=== PATIENT | male | born 1940 | race Caucasian/White ===

== ENCOUNTER 2018-06-24 10:13 | Emergency (ER) | payer MEDICARE, OTHER, SELFPAY ==
[2018-06-24 10:14] VITALS: BP 138/94; PULSE 120; RESP 18; TEMP 36.6; O2SAT 98; BMI 25.8
--- NOTE | 2018-06-24 10:41 | NURSING ---
DR FLOYD FOR DR NICHOLAS
--- NOTE | 2018-06-24 11:02 | ED.DCSUM_ITS ---
- ER Visit Summary Date of Service: 06/24/18 Chief Complaint: [] Lumbar back pain acute exacerbation for 8 years History of Present Illness: The patient is a 77 M [] history of lumbar back pain for over 8 years he seen multiple physicians has had multiple imaging outpatient management history under the care of Dr. dmitry Mcdaniel pain management, see June 02 had his back injected had partial relief he was seen yesterday for persistence of the pain Medrol Dosepak was added to his regimen he spoke with office today and was to explain his back pain was not improved and he was instructed to come to the hospital per the office, this is that identical presentation in nature of pain to her prior there is been nothing new, there is been no fever no cough no numbness weakness or paresthesias no difficulty ambulation bowel bladder habits been normal he just takes his hands and draws it diffusely across his back if he sits in the bed still he is improved if he tries to bend over or move he has more pain assures me this is the chronic pattern and nature of his symptoms Physical Examination: [] 130/82 80 General, no distress resting comfortably HEENT is generally unremarkable The neck is supple no adenopathy Cardiovascular, regular rate and rhythm Lungs, clear bilateral Abdomen, soft nontender The back he has a vague nonspecific lumbar back pain there is no focality to it, there is no specific pain over any bony prominence Extremities, no clubbing cyanosis or edema Neurologic, awake alert answering questions appropriately moving all 4 extremities his gait is stable and steady he is able to heel raise toe raise knee bend he has no paresthesias no bowel or bladder complaints no signs of cauda equina Test Results: [] Emergency Department Course and Treatment: [] Patient's been medicated he is resting comfortably is in no distress his physical exam is unchanged I spoke with his physician Dr. Wallis he was for pain management, he agrees he can follow-up with the office continue his outpatient management plan any other diagnostic studies can be done as an outpatient and he is to return for change in symptoms patient and agree with this plan further apparently he has a prescription for Rodney that he can use for rescue pain and his doctor said he can come by the office today to get a prescription for that if he is out of it Treatment Plan: [] Disposition: [] Home stable Impression: [] Acute recurrent lumbar back pain This note was generated with [employer] dictation software. It may contain incorrect words, spelling, and punctuation that were not noted in review of the chart prior to signing ED Disposition - Plan for ED Patient: Chief Complaint: Back Referrals: Karla Walsh MD [Primary Care Provider] -
--- NOTE | 2018-06-24 11:05 | NURSING ---
CALLED OFFICE FOR DR NOLAN. HE'S WITH A PATIENT .
[2018-06-24] MEDS: morphine 8 MG/ML Syringe SC (11:17)
--- NOTE | 2018-06-24 11:29 | ED.DEP ---
ED Disposition - Plan for ED Patient: Chief Complaint: Back Referrals: Karla Walsh MD [Primary Care Provider] - Additional Instructions: Follow-up with all of your outpatient providers including her pain management physician return for change in symptoms
--- NOTE | 2018-06-24 11:30 | ED.DEP ---
ED Disposition - Plan for ED Patient: Chief Complaint: Back Instructions: ED Sciatica Referrals: Karla Walsh MD [Primary Care Provider] - Additional Instructions: Follow-up with all of your outpatient providers including her pain management physician return for change in symptoms
[2018-06-24] MEDS: Orphenadrine 100 MG Tablet PO (11:36)
[2018-06-24 11:38] VITALS: BP 127/74; PULSE 76; RESP 18; O2SAT 99
--- OUTSIDE RECORDS SUMMARY | 2018-08-10 14:05 | XMS RPT_ITS ---
:1940 Author Organization OHIP Care Team Providers Name Role Phone KARLA NAJERA Attending Unavailable GANTA, KARLA Referring Unavailable GANTA, KARLA Referring Unavailable GANTA, KARLA Attending Unavailable GANTA, KARLA Referring Unavailable GANTA, KARLA Referring Unavailable Ganta, Karal Primary Care Unavailable Tong Jasmine Attending Unavailable Basali, Stephania Attending Unavailable Basali, Anetaman Referring Unavailable Ganta, Karla Primary Care Unavailable PROBLEMS PROBLEMS DATE TYPE CONDITION / CODE ATTENDING STATUS SOURCE 05/23/2018 Active Encounter for NA Active [facility] screening for [place] malignant neoplasm Repository of prostate / Z12.5(ICD-10) 05/23/2018 Active Prediabetes / NA Active [facility] R73.03(ICD-10) [place] Repository 07/04/2016 Active Hyperlipidemia, NA Active [facility] unspecified / [place] E78.5(ICD-10) Repository 02/21/2018 Active Hyperglycemia, NA Active [facility] unspecified / [place] R73.9(ICD-10) Repository 02/21/2018 Active Essential (primary) NA Active [facility] hypertension / [place] I10(ICD-10) Repository 02/21/2018 Active Other specified NA Active [facility] hypothyroidism / [place] E03.8(ICD-10) Repository PROCEDURES PROCEDURES No Procedure Records FoundRESULTS RESULTS SPINE CERVICAL Observed: 07/03/2018 Status: F Source: [place] (ROUTINE) 3:34 PM [facility] Imaging Services [address] [place] [address] Spine Cervical (Routine) MR#: [id number] Acct: [id number] Name: DERRICK OMALLEY Rep #: [id number] : 1940 M 77 From: Paco Capellan PCP: Karla Najera MD Status: REG CLI Study: Spine Cervical (Routine) Date of Exam: 07/03/18 Exam# [id number] Ordering Dr: Stephania Quintanilla MD STUDY: MRI CERVICAL SPINE WITHOUT CONTRAST REASON FOR EXAM: Male, 77 years old. Neck pain TECHNIQUE: Standardized fat and water weighted pulse sequences were obtained in the sagittal and axial planes. COMPARISON: None FINDINGS: Normal foramen magnum and brainstem-cervical cord junction. Normal craniovertebral junction. Normal anterior atlantoaxial articulation. Normal odontoid process. Normal cervical lordosis. Normal vertebral bodies and posterior osseous elements. C2-3: Normal endplates. Normal disc height, signal and morphology. Normal central canal and intervertebral neural foramina. C3-4: There is mild loss of disc height. There is mild osteophytic ridging. There is mild bilateral facet hypertrophy. There is NO spinal or foraminal stenosis. C4-5: There is mild loss of disc height. There is mild RIGHT posterior paracentral disc bulging causing mild spinal stenosis. There is mild facet arthropathy. There is NO foraminal stenosis. C5-6: There is significant loss of disc height. There is diffuse osteophytic ridging causing mild spinal stenosis and moderate bilateral foraminal stenosis. The facet joints are unremarkable. C6-7: There is significant loss of disc height. There is diffuse osteophytic ridging causing mild spinal stenosis and moderate bilateral foraminal stenosis. The facet joints are unremarkable. C7-T1: Normal endplates. Normal disc height, signal and morphology. Normal central canal and intervertebral neural foramina. Normal cervical cord. There is NO cervical cord gliosis, edema or myelomalacia. Normal visualized soft tissue structures. MRI/Spine Cervical (Routine) IMPRESSION: There are chronic degenerative changes as described. There is NO fracture, malalignment, disc herniation or cord compression. Electronically Signed: Paco Capellan MD at 4:35 EST , Service support , CC: Stephania Quintanilla MD; Karla Najera MD Radio Division Lieutenant: Signed SPINE LUMBAR Observed: 07/03/2018 Status: F Source: [place] (ROUTINE) 3:34 PM [facility] Imaging Services [address] [place] [address] Spine Lumbar (Routine) MR#: [id number] Acct: [id number] Name: DERRICK OMALLEY Rep #: [id number] : 1940 77 From: Ricardo Sprague MD PCP: Karla Najera MD Status: REG CLI Study: Spine Lumbar (Routine) Date of Exam: 07/03/18 Exam# [id number] Ordering Dr: Stephania Quintanilla MD STUDY: MRI LUMBAR SPINE WITHOUT CONTRAST REASON FOR EXAM: Male, 77 years old. Lower back pain TECHNIQUE: Standardized fat and water weighted pulse sequences were obtained in the sagittal and axial planes. COMPARISON: None FINDINGS: T12-L1: Normal endplates. Normal disc height, hydration and morphology. Normal bilateral facet joints. Normal central canal and bilateral lateral recesses. Normal bilateral intervertebral neural foramina. Normal lumbar lordosis. There is a levoscoliosis of the lumbar spine. Normal conus medullaris that terminates at the L1 level. L1-2: Endplate spondylosis. Decreased disc height and small circumferential disc bulge. Degenerative changes of the bilateral facet joints. Mild narrowing of the central canal and bilateral intervertebral neural foramina. L2-3: Endplate spondylosis. Decreased disc height and small circumferential disc bulge. Degenerative changes of the bilateral facet joints. Mild narrowing of the central canal. Mild left and moderate right intervertebral neural foraminal narrowing. L3-4: Endplate spondylosis. Decreased disc height and small circumferential disc bulge. Degenerative changes of the bilateral facet joints. Mild narrowing of the central canal. Mild left and moderate right intervertebral neural foraminal narrowing. L4-5: Endplate spondylosis. Decreased disc height and small circumferential disc bulge. Degenerative changes of the bilateral facet joints. Mild narrowing of the central canal. Mild left and moderate right intervertebral neural foraminal narrowing. L5-S1: Normal endplates. Normal disc height, hydration and morphology. Mild degenerative changes in the facet joints. Normal central canal and bilateral lateral recesses. Normal bilateral intervertebral neural foramina. Normal visualized sacral ala. Normal visualized paraspinous soft tissue structures. MRI/Spine Lumbar (Routine) IMPRESSION: Multilevel degenerative changes, as described above. Electronically Signed: Ricardo Sprague MD at 7:57 EST Tel , Service support , CC: Stephania Quintanilla MD; Karla Najera MD Radio Division Lieutenant: Signed EMERGENCY DEPARTMENT Observed: 06/24/2018 Status: F Source: [place] SUMMARY 5:10 PM [facility] Medical Records Department [address] [place] [address] Emergency Department Summary 06/24/18 1100 MR#: [id number] Acct: [id number] Name: DERRICK OMALLEY Rep #: [id number] : 1940 77 From: Tong Jasmine MD PCP: Karla Najera MD Status: DEP ER - ER Visit Summary Date of Service: 06/24/18 Chief Complaint: [] Lumbar back pain acute exacerbation for 8 years History of Present Illness: The patient is a 77 M [] history of lumbar back pain for over 8 years he seen multiple physicians has had multiple imaging outpatient management history under the care of Dr. dmitry Mcdaniel pain management, see June 02 had his back injected had partial relief he was seen yesterday for persistence of the pain Medrol Dosepak was added to his regimen he spoke with office today and was to explain his back pain was not improved and he was instructed to come to the hospital per the office, this is that identical presentation in nature of pain to her prior there is been nothing new, there is been no fever no cough no numbness weakness or paresthesias no difficulty ambulation bowel bladder habits been normal he just takes his hands and draws it diffusely across his back if he sits in the bed still he is improved if he tries to bend over or move he has more pain assures me this is the chronic pattern and nature of his symptoms Physical Examination: [] 130/82 80 General, no distress resting comfortably HEENT is generally unremarkable The neck is supple no adenopathy Cardiovascular, regular rate and rhythm Lungs, clear bilateral Abdomen, soft nontender The back he has a vague nonspecific lumbar back pain there is no focality to it, there is no specific pain over any bony prominence Extremities, no clubbing cyanosis or edema Neurologic, awake alert answering questions appropriately moving all 4 extremities his gait is stable and steady he is able to heel raise toe raise knee bend he has no paresthesias no bowel or bladder complaints no signs of cauda equina Test Results: [] Emergency Department Course and Treatment: [] Patient's been medicated he is resting comfortably is in no distress his physical exam is unchanged I spoke with his physician Dr. Wallis he was for pain management, he agrees he can follow- up with the office continue his outpatient management plan any other diagnostic studies can be done as an outpatient and he is to return for change in symptoms patient and agree with this plan further apparently he has a prescription for [place] that he can use for rescue pain and his doctor said he can come by the office today to get a prescription for that if he is out of it Treatment Plan: [] Disposition: [] Home stable Impression: [] Acute recurrent lumbar back pain This note was generated with [employer] dictation software. It may contain incorrect words, spelling, and punctuation that were not noted in review of the chart prior to signing ED Disposition - Plan for ED Patient: Chief Complaint: Back Referrals: Karla Najera MD [Primary Care Provider] - What to do if you have Problems For any increased pain, shortness of breath, bleeding, nausea or vomiting, chest pain, or any unexpected problems, contact your Primary Care Provider. Call [facility] ([phone]) or report to the closest Emergency Room. Call 911 if necessary. 06/24/18 1710 <Electronically signed by Togn Jasmine MD> Date Tong Jasmine MD Cosigner Signature (If Indicated): Date CC: Karla Najera MD DISCHARGE INSTRUCTION Observed: 06/24/2018 Status: F Source: [place] 11:31 AM [facility] Medical Records Department [address] [place] [address] Discharge Instruction 06/24/18 1130 MR#: [id number] Acct: [id number] Name: DERRICK OMALLEY Rep #: [id number] : 1940 77 From: Tong Jasmine MD PCP: Karla Najera MD Status: REG ER ED Disposition - Plan for ED Patient: Chief Complaint: Back Instructions: ED Sciatica Referrals: Karla Najera MD [Primary Care Provider] - Additional Instructions: Follow-up with all of your outpatient providers including her pain management physician return for change in symptoms What to do if you have Problems For any increased pain, shortness of breath, bleeding, nausea or vomiting, chest pain, or any unexpected problems, contact your Primary Care Provider. Call [facility] ([phone]) or report to the closest Emergency Room. Call 911 if necessary. 06/24/18 1131 <Electronically signed by Tong Jasmine MD> Date Tong Jasmine MD Cosigner Signature (If Indicated): Date CC: Karla Najera MD DISCHARGE INSTRUCTION Observed: 06/24/2018 Status: F Source: [place] 11:30 AM [facility] Medical Records Department [address] [place] [address] Discharge Instruction 06/24/18 1129 MR#: [id number] Acct: [id number] Name: DERRICK OMALLEY Rep #: [id number] : 1940 77 From: Tong Jasmine MD PCP: Karla Najera MD Status: REG ER ED Disposition - Plan for ED Patient: Chief Complaint: Back Referrals: Karla Najera MD [Primary Care Provider] - Additional Instructions: Follow-up with all of your outpatient providers including her pain management physician return for change in symptoms What to do if you have Problems For any increased pain, shortness of breath, bleeding, nausea or vomiting, chest pain, or any unexpected problems, contact your Primary Care Provider. Call [facility] ([phone]) or report to the closest Emergency Room. Call 911 if necessary. 06/24/18 1130 <Electronically signed by Tong Jasmine MD> Date Tong Jasmine MD Cosigner Signature (If Indicated): Date CC: Karla Najera MD PROGRESS Observed: 06/17/2018 Status: COMPLETED Source: [place] 6:10 PM [facility] REPOSITORY O ID: [id number] Author: Karla Najera Service: (none) Author Type: Physician Type: Progress Notes Filed: 06/17/2018 7:39 PM Note Text: Reason for Visit Patient presents with: Recheck: 3 month follow up, review labs Derrick Omalley is a 77 year old male who presents here today for Above Complaints.. Health Maintenance DTAP,TDAP,TD(1 - Tdap) INFLUENZA(1) HPI He had cut down his forsties and dairy [place]. He is not able to exercise much due to his bad back. He likes his frosties and dairy [place] sundaes. His prostate is a little elevated. Ok to follow up in 3 months , father of prostate cancer ? Sugars are mildly elevated will need to check his hba1c. ? He is concerned about his hernia mesh , he is concerned if he has a recall. Reflux- controlled on the nexium. ? He has been getting steroid shots in his back and he would like to know if his kidneys are normal. His steroid shots are every 3 months. He notes that his pain is worse after the shots than before the shots he gets one on each hip, tail bone, SI joint, and back. Discussed with him that his GFR is more than 60 No problem-specific Assessment AND Plan notes found for this encounter. PAST MEDICAL HISTORY Diagnosis Date - Arthritis see's Dr. 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 Pertinent Lab/Diagnostic Studies are reviewed and discussed today Current Outpatient Prescriptions: - timolol maleate (TIMOPTIC) 0.5 % drpd - Brimonidine-Timolol (COMBIGAN) 0.2-0.5 % drop - HYDROcodone-acetaminophen (NORCO) 5-325 mg per tablet - latanoprost (XALATAN) 0.005 % ophthalmic solution - esomeprazole (NEXIUM) 40 mg capsule - meclizine 25 mg tab - aluminum-magnesium hydroxide-simethicone (ANTACID ANTI- GAS) 200-200-20 mg/5 mL suspension - MULTIVITAMIN ORAL TAB Review of Systems CONSTITUTIONAL: No fevers, chills night sweats, unintended weight loss CARDIOVASCULAR: No chest pain, dyspnea, palpitations, orthopnea, PND, ankle edema. PULM: No dyspnea, unexplained cough. GI: No dysphagia/odynophagia, problematic reflux, constipation, diarrhea, changes in stool habits, hematochezia, melena. : No new urinary complaints, including dysuria, gross hematuria or pyuria. NEURO: No new balance problems, peripheral weakness/paresthesias or numbness of concern. Physical Exam BP 128/64 Pulse 90 Resp 16 Wt 78.5 kg (173 lb) SpO2 97% BMI 27.10 kg/m? General appearance: Well appearing, alert, in no acute distress, well nourished. Skin: Skin color, texture, turgor normal, no suspicious rashes or lesions Head: Normocephalic, no masses, lesions, tenderness or abnormalities Eyes: Anicteric sclera. Pupils are equally round and reactive to light. Extraocular movements are intact. Lungs: Lungs clear to auscultation. No wheezing, rhonchi, rales Heart: RRR without murmur, gallop, or rubs. Extremities: No deformities, edema, skin discoloration, clubbing or cyanosis. Good capillary refill. ASSESSMENT/PLAN: 1. Hyperlipidemia with target LDL less than 130 - ICD9: 272.4, ICD10: E78.5 (primary diagnosis) - good control - Continue current medication. - LIPID PANEL BASIC 2. Gastroesophageal reflux disease without esophagitis - ICD9: 530.81, ICD10: K21.9 - Discussed lifestyle modifications including losing weight, limiting caffeine, no meals three hours before sleep and head of bed elevation 3. Elevated prostate specific antigen (PSA) - ICD9: 790.93, ICD10: R97.20 We will recheck his prostate in 3 months. 4. Prostate cancer screening - ICD9: V76.44, ICD10: Z12.5 - Recommended regular aerobic exercise. - Follow up for annual exam in one year. - PSA/PROSTSPECAG MD KATJA DUMONTOV Observed: 06/17/2018 Status: COMPLETED Source: [place] 5:40 PM [facility] REPOSITORY Office Visit (INTMWS) DERRICK OMALLEY ([id number]) 1940 M Date Time Provider Department 06/17/18 5:40 PM KARLA NAJERA INTMWS During your visit today, we recorded the following information about you: Pulse Respiration Blood pressure Weight 90/minute 16/minute 128/64 78.5 kg KARLA NAJERA MD 06/17/2018 7:39 PM Signed Reason for Visit Patient presents with: Recheck: 3 month follow up, review labs Derrick Omalley is a 77 year old male who presents here today for Above Complaints.. Health Maintenance DTAP,TDAP,TD(1 - Tdap) INFLUENZA(1) HPI He had cut down his forsties and dairy [place]. He is not able to exercise much due to his bad back. He likes his frosties and dairy [place] sundaes. His prostate is a little elevated. Ok to follow up in 3 months , father of prostate cancer ? Sugars are mildly elevated will need to check his hba1c. ? He is concerned about his hernia mesh , he is concerned if he has a recall. Reflux- controlled on the nexium. ? He has been getting steroid shots in his back and he would like to know if his kidneys are normal. His steroid shots are every 3 months. He notes that his pain is worse after the shots than before the shots he gets one on each hip, tail bone, SI joint, and back. Discussed with him that his GFR is more than 60 No problem-specific Assessment AND Plan notes found for this encounter. PAST MEDICAL HISTORY Diagnosis Date - Arthritis see's Dr. 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 Pertinent Lab/Diagnostic Studies are reviewed and discussed today Current Outpatient Prescriptions: - timolol maleate (TIMOPTIC) 0.5 % drpd - Brimonidine-Timolol (COMBIGAN) 0.2-0.5 % drop - HYDROcodone-acetaminophen (NORCO) 5-325 mg per tablet - latanoprost (XALATAN) 0.005 % ophthalmic solution - esomeprazole (NEXIUM) 40 mg capsule - meclizine 25 mg tab - aluminum-magnesium hydroxide-simethicone (ANTACID ANTI- GAS) 200-200-20 mg/5 mL suspension - MULTIVITAMIN ORAL TAB Review of Systems CONSTITUTIONAL: No fevers, chills night sweats, unintended weight loss CARDIOVASCULAR: No chest pain, dyspnea, palpitations, orthopnea, PND, ankle edema. PULM: No dyspnea, unexplained cough. GI: No dysphagia/odynophagia, problematic reflux, constipation, diarrhea, changes in stool habits, hematochezia, melena. : No new urinary complaints, including dysuria, gross hematuria or pyuria. NEURO: No new balance problems, peripheral weakness/paresthesias or numbness of concern. Physical Exam BP 128/64 Pulse 90 Resp 16 Wt 78.5 kg (173 lb) SpO2 97% BMI 27.10 kg/m? General appearance: Well appearing, alert, in no acute distress, well nourished. Skin: Skin color, texture, turgor normal, no suspicious rashes or lesions Head: Normocephalic, no masses, lesions, tenderness or abnormalities Eyes: Anicteric sclera. Pupils are equally round and reactive to light. Extraocular movements are intact. Lungs: Lungs clear to auscultation. No wheezing, rhonchi, rales Heart: RRR without murmur, gallop, or rubs. Extremities: No deformities, edema, skin discoloration, clubbing or cyanosis. Good capillary refill. ASSESSMENT/PLAN: 1. Hyperlipidemia with target LDL less than 130 - ICD9: 272.4, ICD10: E78.5 (primary diagnosis) - good control - Continue current medication. - LIPID PANEL BASIC 2. Gastroesophageal reflux disease without esophagitis - ICD9: 530.81, ICD10: K21.9 - Discussed lifestyle modifications including losing weight, limiting caffeine, no meals three hours before sleep and head of bed elevation 3. Elevated prostate specific antigen (PSA) - ICD9: 790.93, ICD10: R97.20 We will recheck his prostate in 3 months. 4. Prostate cancer screening - ICD9: V76.44, ICD10: Z12.5 - Recommended regular aerobic exercise. - Follow up for annual exam in one year. - PSA/PROSTSPECAG SCRN KARLA NAJERA MD Referring Provider: KARLA NAJERA [[id number]] Allergies As of Date: 06/17/2018 Noted Allergy Reaction COMBIGAN (BRIMONIDINE-TIMOLOL) 03/04/2018 7 - Swelling LEVAQUIN (LEVOFLOXACIN) 04/25/2005 8 - GI Upset MOBIC (MELOXICAM) 01/29/2010 Comments: Painful joints SULFA (SULFONAMIDE ANTIBIOTICS) 04/25/2005 4 - Hives TYLENOL (ACETAMINOPHEN) 05/17/2010 8 - GI Upset Date Reviewed: 06/17/2018 Reviewed by: Leny Rooj Ma - Fully Assessed Reason for Visit: Recheck [92] Cmt: 3 month follow up, review labs Reason For Visit History Recorded Primary Visit Diagnosis:Hyperlipidemia with target LDL less than 130 [E78.5] Other Visit Diagnoses:Gastroesophageal reflux disease without esophagitis [K21.9] Elevated prostate specific antigen (PSA) [R97.20] Prostate cancer screening [Z12.5] Order(s):LIPID PANEL BASIC [SQLIPB] Order #: [id number] FUTURE PSA/PROSTSPECAG SCRN [SQPSAS1] Order #: [id number] FUTURE Prescriptions as of 06/17/2018 Sig: TIMOLOL MALEATE 0.5 % ONCE DA* Use 1 Drop in both eyes twice* BRIMONIDINE-TIMOLOL 0.2 %-0.5* Use in both eyes. HYDROCODONE 5 MG-ACETAMINOPHE* Take 1 tablet by mouth once d* LATANOPROST 0.005 % EYE DROPS Use 1 Drop in both eyes daily* ESOMEPRAZOLE MAGNESIUM 40 MG * Take 1 capsule by mouth once * MECLIZINE 25 MG TABLET Take 1 tablet by mouth every * ALUMINUM-MAG HYDROXIDE-SIMETH* Take by mouth every 6 hours * MULTIVITAMIN TABLET Take one(1) tablet daily. Problem List As Of Date 06/17/2018 Noted Resolved DIABETES MELLITUS TYPE II-UNCOMPL [E11.9] 02/18/2015 Other and unspecified hyperlipidemia [E78.5] More... ELEVATED PROSTATE SPECIFIC ANTIGEN [R97.20] Dizziness and giddiness [R42] INVALID FOR* More... ANXIETY STATE NOS [F41.1] INVALID FOR* Esophageal reflux [K21.9] INVALID FOR* More... INSOMNIA NOS [G47.00] INVALID FOR* More... ALLERGIC RHINITIS NOS [J30.9] INVALID FOR* ABNORMAL CXR [793.1] INVALID FOR* More... PULMONARY NODULES [R22.2] INVALID FOR* More... DDD (degenerative disc disease) [OCW0004] INVALID FOR* More... Diverticulosis [K57.90] INVALID FOR* Inguinal hernia [K40.90] INVALID FOR* Hyperlipidemia with target LDL less than 130 [E*INVALID FOR* More... Herpes zoster without complication [B02.9] INVALID FOR* Encounter Status:Closed by KARLA NAJERA MD on 06/17/18 PSA, SCREENING Collected: 05/23/2018 Status: F Source: [place] 11:30 AM [facility] REPOSITORY TYPE CODE TESTS RESULT OUT OF REFERENCE UNITS RANGE LAB PSAS 0.00-2.59 ng/mL PSA, High Screening 2.66 Result Comment: Total PSA test methodology used is the Electrochemiluminescence Immunoassay. The presence of an abnormal result flag in this range (2.6 to 4.0 ng/mL) should not necessarily be an automatic indicator for prostate biopsy. For an individual patient, the significance of a PSA level should be interpreted in a broad clinical context, including age, race, family history, digital rectal exam, prostate size, results of prior te sting (prostate biopsy, free PSA, PCA3), and use of 5-alpha reductase inhibitors. Considering the high incidence of asymptomatic cancer in the general population that may not pose an ultimate risk to a patient, the decision to recommend urological evaluation or prostate biopsy should be individualized after consideration of all these factors. REFERENCE: Florence Velásquez M.D., M.P.H., Rigo Brown M.D., Ph.D., Nael Stephens M.D., Mouna Carmona M.P.H., Brenda Street Sc.D. Effect of Verification Bias on Screening for Prostate Cancer by Measurement of Prostatic Specific Antigen. N Engl J Med 2003,349:335-42. Performed By: #### PSAS1, HBA1C #### [facility] [employer] [address] [place], [place] [address] HEMOGLOBIN A1C Collected: 05/23/2018 Status: F Source: [place] 11:30 AM [facility] REPOSITORY TYPE CODE TESTS RESULT OUT OF REFERENCE UNITS RANGE LAB HGBA1C 4.3-5.6 % High Hemoglobin A1c 5.8 LAB HBA0 mg/dL Est. Average Glucose 120 Result Comment: eAG: (Estimated average glucose) is a calculated value from HgbA1c and is customer assistance representative of the average blood glucose level in the last 2-3 month period. Performed By: #### PSAS1, HBA1C #### [facility] [employer] [address], [place] [address] PROGRESS Observed: 03/04/2018 Status: COMPLETED Source: [place] 5:53 PM [facility] REPOSITORY HNO ID: [id number] Author: Karla Najera Service: (none) Author Type: Physician Type: Progress Notes Filed: 03/04/2018 7:47 PM Note Text: Medicare Yearly Visit Medical B eligibilty date Age 65 Date of last exam None in the past year PAST MEDICAL HISTORY Diagnosis Date - Arthritis see's Dr. 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 He watches his diet for sodium, low fat and low cholesterol most of the time. List of current specialists seen: Eye: alicia at [facility] End of Live Planning discussed including patients advanced directive wishes: No I am willing to follow Derrick's advanced directives. Depression screen He in the past two weeks denies having felt down, depressed, hopeless or with little interest or pleasure in doing things. Functional Ability/Safety Screen 1. Was the patient's timed Up and Go test unsteady or longer than 30 seconds? No 2. Does the patient need help with the phone, transportation, shopping,preparing meals, housework, laundry, medications or managing money? Yes 3. Does your home have rugs in the hallway, lack of grab bars in the bathroom, lack of handrails on the stairs or have poor lighting? No Hearing Evaluation: normal PHYSICAL EXAM BP 128/80 Pulse 83 Resp 16 Wt 78.9 kg (174 lb) SpO2 97% BMI 27.25 kg/m? Alert and oriented X 3: YES Body mass index is 27.25 kg/m?. ASSESSMENT/PLAN: 77 year old male The following prevention plan was discussed during the office visit and provided to the patient: - Glaucoma screening - Lipid panel KARLA NAJERA MD Reason for Visit Patient presents with: Recheck: Follow up, review labs Derrick Omalley is a 77 year old male who presents here today for Above Complaints.. Health Maintenance DTAP,TDAP,TD(1 - Tdap) INFLUENZA(1) HPI He has been eating a lot of frosties and sundaes, his lipids are the highest they have been in a while. He is not able to exercise much due to his bad back. He likes his frosties and dairy [place] . His prostate is a little elevated. Ok to follow up in 3 months , father of prostate cancer Sugars are mildly elevated will need to check his hba1c. He is concerned about his hernia mesh , he is concerned if he has a recall. Reflux- controlled on the nexium. He has been getting steroid shots in his back and he would like to know if his kidneys are normal. Discussed with him that his GFR is more than 60 Has glaucoma and takes the timolol for it No problem-specific Assessment AND Plan notes found for this encounter. PAST MEDICAL HISTORY Diagnosis Date - Arthritis see's Dr. 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 Pertinent Lab/Diagnostic Studies are reviewed and discussed today Current Outpatient Prescriptions: - timolol maleate (TIMOPTIC) 0.5 % drpd - Brimonidine-Timolol (COMBIGAN) 0.2-0.5 % drop - HYDROcodone-acetaminophen (NORCO) 5-325 mg per tablet - latanoprost (XALATAN) 0.005 % ophthalmic solution - esomeprazole (NEXIUM) 40 mg capsule - meclizine 25 mg tab - aluminum-magnesium hydroxide-simethicone (ANTACID ANTI- GAS) 200-200-20 mg/5 mL suspension - MULTIVITAMIN ORAL TAB Review of Systems CONSTITUTIONAL: No fevers, chills night sweats, unintended weight loss CARDIOVASCULAR: No chest pain, dyspnea, palpitations, orthopnea, PND, ankle edema. PULM: No dyspnea, unexplained cough. GI: No dysphagia/odynophagia, problematic reflux, constipation, diarrhea, changes in stool habits, hematochezia, melena. : No new urinary complaints, including dysuria, gross hematuria or pyuria. NEURO: No new balance problems, peripheral weakness/paresthesias or numbness of concern. Physical Exam BP 128/80 Pulse 83 Resp 16 Wt 78.9 kg (174 lb) SpO2 97% BMI 27.25 kg/m? General appearance: Well appearing, alert, in no acute distress, well nourished. Skin: Skin color, texture, turgor normal, no suspicious rashes or lesions Head: Normocephalic, no masses, lesions, tenderness or abnormalities Eyes: Anicteric sclera. Pupils are equally round and reactive to light. Extraocular movements are intact. Lungs: Lungs clear to auscultation. No wheezing, rhonchi, rales Heart: RRR without murmur, gallop, or rubs. Extremities: No deformities, edema, skin discoloration, clubbing or cyanosis. Good capillary refill. ASSESSMENT/PLAN: 1. Medicare annual wellness visit, subsequent - ICD9: V70.0, ICD10: Z00.00 (primary diagnosis) - Recommended regular aerobic exercise. - Follow up for annual exam in one year. 2. Prostate cancer screening - ICD9: V76.44, ICD10: Z12.5 - Recommended regular aerobic exercise. - Follow up for annual exam in one year. - PSA/PROSTSPECAG SCRN 3. Hyperlipidemia with target LDL less than 130 - ICD9: 272.4, ICD10: E78.5 - good control - Continue current medication. 4. Prediabetes - ICD9: 790.29, ICD10: R73.03 - HGB A1C 5. Gastroesophageal reflux disease without esophagitis - ICD9: 530.81, ICD10: K21.9 - Discussed lifestyle modifications including losing weight, limiting caffeine, no meals three hours before sleep and head of bed elevation 6. Glaucoma, unspecified glaucoma type, unspecified laterality - ICD9: 365.9, ICD10: H40.9 KARLA NAJERA MD CNOV Observed: 03/04/2018 Status: COMPLETED Source: [place] 5:40 PM [facility] Office Visit (INTMWS) DERRICK OMALLEY ([id number]) 1940 M Date Time Provider Department 03/04/18 5:40 PM KARLA NAJERA During your visit today, we recorded the following information about you: Pulse Respiration Blood pressure Weight 83/minute 16/minute 128/80 78.9 kg KARLA NAJERA MD 03/04/2018 7:47 PM Addendum Medicare Yearly Visit Medical B eligibilty date Age 65 Date of last exam None in the past year PAST MEDICAL HISTORY Diagnosis Date - Arthritis see's Dr. 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 He watches his diet for sodium, low fat and low cholesterol most of the time. List of current specialists seen: Eye: alicia at [facility] End of Live Planning discussed including patients advanced directive wishes: No I am willing to follow Derrick's advanced directives. Depression screen He in the past two weeks denies having felt down, depressed, hopeless or with little interest or pleasure in doing things. Functional Ability/Safety Screen 1. Was the patient's timed Up and Go test unsteady or longer than 30 seconds? No 2. Does the patient need help with the phone, transportation, shopping,preparing meals, housework, laundry, medications or managing money? Yes 3. Does your home have rugs in the hallway, lack of grab bars in the bathroom, lack of handrails on the stairs or have poor lighting? No Hearing Evaluation: normal PHYSICAL EXAM BP 128/80 Pulse 83 Resp 16 Wt 78.9 kg (174 lb) SpO2 97% BMI 27.25 kg/m? Alert and oriented X 3: YES Body mass index is 27.25 kg/m?. ASSESSMENT/PLAN: 77 year old male The following prevention plan was discussed during the office visit and provided to the patient: - Glaucoma screening - Lipid panel KARLA NAJERA MD Reason for Visit Patient presents with: Recheck: Follow up, review labs Derrick Omalley is a 77 year old male who presents here today for Above Complaints.. Health Maintenance DTAP,TDAP,TD(1 - Tdap) INFLUENZA(1) HPI He has been eating a lot of frosties and sundaes, his lipids are the highest they have been in a while. He is not able to exercise much due to his bad back. He likes his frosties and dairy [place] sundaes. His prostate is a little elevated. Ok to follow up in 3 months , father of prostate cancer Sugars are mildly elevated will need to check his hba1c. He is concerned about his hernia mesh , he is concerned if he has a recall. Reflux- controlled on the nexium. He has been getting steroid shots in his back and he would like to know if his kidneys are normal. Discussed with him that his GFR is more than 60 Has glaucoma and takes the timolol for it No problem-specific Assessment AND Plan notes found for this encounter. PAST MEDICAL HISTORY Diagnosis Date - Arthritis see's Dr. 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 Pertinent Lab/Diagnostic Studies are reviewed and discussed today Current Outpatient Prescriptions: - timolol maleate (TIMOPTIC) 0.5 % drpd - Brimonidine-Timolol (COMBIGAN) 0.2-0.5 % drop - HYDROcodone-acetaminophen (NORCO) 5-325 mg per tablet - latanoprost (XALATAN) 0.005 % ophthalmic solution - esomeprazole (NEXIUM) 40 mg capsule - meclizine 25 mg tab - aluminum-magnesium hydroxide-simethicone (ANTACID ANTI- GAS) 200-200-20 mg/5 mL suspension - MULTIVITAMIN ORAL TAB Review of Systems CONSTITUTIONAL: No fevers, chills night sweats, unintended weight loss CARDIOVASCULAR: No chest pain, dyspnea, palpitations, orthopnea, PND, ankle edema. PULM: No dyspnea, unexplained cough. GI: No dysphagia/odynophagia, problematic reflux, constipation, diarrhea, changes in stool habits, hematochezia, melena. : No new urinary complaints, including dysuria, gross hematuria or pyuria. NEURO: No new balance problems, peripheral weakness/paresthesias or numbness of concern. Physical Exam BP 128/80 Pulse 83 Resp 16 Wt 78.9 kg (174 lb) SpO2 97% BMI 27.25 kg/m? General appearance: Well appearing, alert, in no acute distress, well nourished. Skin: Skin color, texture, turgor normal, no suspicious rashes or lesions Head: Normocephalic, no masses, lesions, tenderness or abnormalities Eyes: Anicteric sclera. Pupils are equally round and reactive to light. Extraocular movements are intact. Lungs: Lungs clear to auscultation. No wheezing, rhonchi, rales Heart: RRR without murmur, gallop, or rubs. Extremities: No deformities, edema, skin discoloration, clubbing or cyanosis. Good capillary refill. ASSESSMENT/PLAN: 1. Medicare annual wellness visit, subsequent - ICD9: V70.0, ICD10: Z00.00 (primary diagnosis) - Recommended regular aerobic exercise. - Follow up for annual exam in one year. 2. Prostate cancer screening - ICD9: V76.44, ICD10: Z12.5 - Recommended regular aerobic exercise. - Follow up for annual exam in one year. - PSA/PROSTSPECAG SCRN 3. Hyperlipidemia with target LDL less than 130 - ICD9: 272.4, ICD10: E78.5 - good control - Continue current medication. 4. Prediabetes - ICD9: 790.29, ICD10: R73.03 - HGB A1C 5. Gastroesophageal reflux disease without esophagitis - ICD9: 530.81, ICD10: K21.9 - Discussed lifestyle modifications including losing weight, limiting caffeine, no meals three hours before sleep and head of bed elevation 6. Glaucoma, unspecified glaucoma type, unspecified laterality - ICD9: 365.9, ICD10: H40.9 KARLA NAJERA MD Referring Provider: KARLA NAJERA [[id number]] Allergies As of Date: 03/04/2018 Noted Allergy Reaction COMBIGAN (BRIMONIDINE-TIMOLOL) 03/04/2018 7 - Swelling LEVAQUIN (LEVOFLOXACIN) 04/25/2005 8 - GI Upset MOBIC (MELOXICAM) 01/29/2010 Comments: Painful joints SULFA (SULFONAMIDE ANTIBIOTICS) 04/25/2005 4 - Hives TYLENOL (ACETAMINOPHEN) 05/17/2010 8 - GI Upset Date Reviewed: 03/04/2018 Reviewed by: Leny Rojo Ma - Fully Assessed Reason for Visit: Recheck [92] Cmt: Follow up, review labs Primary Visit Diagnosis:Medicare annual wellness visit, subsequent [Z00.00] Other Visit Diagnoses:Prostate cancer screening [Z12.5] Hyperlipidemia with target LDL less than 130 [E78.5] Prediabetes [R73.03] Gastroesophageal reflux disease without esophagitis [K21.9] Glaucoma, unspecified glaucoma type, unspecified laterality [H40.9] Order(s):PSA/PROSTSPECAG SCRN [SQPSAS1] Order #: [id number] FUTURE HGB A1C [TDHVZ0L] Order #: [id number] FUTURE Prescriptions as of 03/04/2018 Sig: TIMOLOL MALEATE 0.5 % ONCE DA* Use 1 Drop in both eyes twice* BRIMONIDINE-TIMOLOL 0.2 %-0.5* Use in both eyes. HYDROCODONE 5 MG-ACETAMINOPHE* Take 1 tablet by mouth once d* LATANOPROST 0.005 % EYE DROPS Use 1 Drop in both eyes daily* ESOMEPRAZOLE MAGNESIUM 40 MG * Take 1 capsule by mouth once * MECLIZINE 25 MG TABLET Take 1 tablet by mouth every * ALUMINUM-MAG HYDROXIDE-SIMETH* Take by mouth every 6 hours * MULTIVITAMIN TABLET Take one(1) tablet daily. Problem List As Of Date 03/04/2018 Noted Resolved DIABETES MELLITUS TYPE II-UNCOMPL [E11.9] 02/18/2015 Other and unspecified hyperlipidemia [E78.5] More... ELEVATED PROSTATE SPECIFIC ANTIGEN [R97.20] Dizziness and giddiness [R42] INVALID FOR* More... ANXIETY STATE NOS [F41.1] INVALID FOR* Esophageal reflux [K21.9] INVALID FOR* More... INSOMNIA NOS [G47.00] INVALID FOR* More... ALLERGIC RHINITIS NOS [J30.9] INVALID FOR* ABNORMAL CXR [793.1] INVALID FOR* More... PULMONARY NODULES [R22.2] INVALID FOR* More... DDD (degenerative disc disease) [AVV1309] INVALID FOR* More... Diverticulosis [K57.90] INVALID FOR* Inguinal hernia [K40.90] INVALID FOR* Hyperlipidemia with target LDL less than 130 [E*INVALID FOR* More... Herpes zoster without complication [B02.9] INVALID FOR* Encounter Status:Closed by KARLA NAJERA MD on 03/04/18 ALBUMIN/CREAT RATIO Collected: 03/04/2018 Status: F Source: [place] 5:12 PM [facility] RE[facility]ORY TYPE CODE TESTS RESULT OUT OF REFERENCE UNITS RANGE LAB UCRR 20-300 mg/dL Creatinine,Ur 156.7 ine,Ran LAB UALBR 0.0-23.0 mg/L Albumin Urine 12.7 Random LAB UALBCR 0-30 mg/g Albumin/Creat 8 Ratio Result Comment: 30 to 300 mg/g indicates an increased risk for diabetic nephropathy. Greater than 300 mg/g is consistent with clinical nephropathy. (Am J Kidney Disease 1994, 25:107) Performed By: #### UACR #### [facility] [employer] [address], [place] [id number] HEMOGLOBIN A1C Collected: 02/21/2018 Status: F Source: [place] 10:05 [facility] REPOSITORY TYPE CODE TESTS RESULT OUT OF REFERENCE UNITS RANGE LAB HGBA1C 4.3-5.6 % Hemoglobin A1c 5.6 LAB HBA0 mg/dL Est. Average Glucose 114 Result Comment: eAG: (Estimated average glucose) is a calculated value from HgbA1c and is customer assistance representative of the average blood glucose level in the last 2-3 month period. Performed By: #### HBA1C, CBCDIF, PSAS1, CMP, LIPB, TSH #### [facility] [employer] [address], [place] [id number] CBC AND DIFFERENTIAL Collected: 02/21/2018 Status: F Source: [place] 10:05 [facility] REPOSITORY TYPE CODE TESTS RESULT OUT OF REFERENCE UNITS RANGE LAB WBC 3.70-11.00 k/uL WBC 7.16 LAB RBC 4.20-6.00 m/uL RBC 4.57 LAB HGB 13.0-17.0 g/dL Hemoglobin 13.9 LAB HCT 39.0-51.0 % Hematocrit 42.8 LAB MCV 80.0-100.0 fL MCV 93.7 LAB MCH 26.0-34.0 pG MCH 30.4 LAB MCHC 30.5-36.0 g/dL MCHC 32.5 LAB RDWCV 11.5-15.0 % RDW-CV 12.3 LAB PLTCT 150-400 k/uL Platelet Count 238 LAB MPV 9.0-12.7 fL MPV 10.9 LAB ANEUT % Neut% 66.3 LAB AANEUT 1.45-7.50 k/uL Abs Neut 4.74 LAB ALYMP % Lymph% 23.6 LAB AALYMP 1.00-4.00 k/uL Abs Lymph 1.69 LAB AMONO % Amite% 8.0 LAB AAMONO <0.87 k/uL Abs Amite 0.57 LAB AEOS % Eosin% 1.5 LAB AAEOS <0.46 k/uL Abs Eosin 0.11 LAB ABASO % Baso% 0.6 LAB AABASO <0.11 k/uL Abs Baso 0.04 LAB AUNRBC 0 /100 WBC NRBCs 0.0 LAB ABNRBC <0.01 k/uL Absolute nRBC <0.01 LAB DTYP DTYPE Auto Diff Performed By: #### HBA1C, CBCDIF, PSAS1, CMP, LIPB, TSH #### [facility] [address], [place] [address] PSA, SCREENING Collected: 02/21/2018 Status: F Source: [place] 10:05 AM [facility] REPOSITORY TYPE CODE TESTS RESULT OUT OF REFERENCE UNITS RANGE LAB PSAS 0.00-2.59 ng/mL PSA, High Screening 3.26 Result Comment: Total PSA test methodology used is the Electrochemiluminescence Immunoassay. The presence of an abnormal result flag in this range (2.6 to 4.0 ng/mL) should not necessarily be an automatic indicator for prostate biopsy. For an individual patient, the significance of a PSA level should be interpreted in a broad clinical context, including age, race, family history, digital rectal exam, prostate size, results of prior te sting (prostate biopsy, free PSA, PCA3), and use of 5-alpha reductase inhibitors. Considering the high incidence of asymptomatic cancer in the general population that may not pose an ultimate risk to a patient, the decision to recommend urological evaluation or prostate biopsy should be individualized after consideration of all these factors. REFERENCE: Florence Velásquez M.D., M.P.H., Rigo Borwn M.D., Ph.D., Nael Stephens M.D., Mouna Carmona, M.P.H., Brenda Street Sc.D. Effect of Verification Bias on Screening for Prostate Cancer by Measurement of Prostatic Specific Antigen. N Engl J Med 2003,349:335-42. Performed By: #### HBA1C, CBCDIF, PSAS1, CMP, LIPB, TSH #### [facility] [employer] [address] [place], [place] [address] COMP METABOLIC PANEL Collected: 02/21/2018 Status: F Source: [place] 10:05 AM [facility] REPOSITORY TYPE CODE TESTS RESULT OUT OF REFERENCE UNITS RANGE LAB TP 6.3-8.0 g/dL Protein, Total 7.2 LAB ALB 3.9-4.9 g/dL Albumin 4.3 LAB CA 8.5-10.2 mg/dL Calcium, Total 9.7 LAB TBIL 0.2-1.3 mg/dL Bilirubin, Total 0.4 LAB ALKP 36-108 U/L Alkaline Phosphatase 66 LAB AST 14-40 U/L AST 19 LAB GLU 74-99 mg/dL Glucose High 118 Result Comment: The [place] [employer] (ADA) provides guidance for cutoff values for fasting glucose and random glucose. The ADA defines fasting as no caloric intake for at least 8 hours. Fas ting plasma glucose results between 100 to 125 mg/dL indicate increased risk for diabetes (prediabetes). Fasting plasma glucose results greater than or equal to 126 mg/dL meet the criteria for diagnosis of diabetes. In the absence of unequivocal hyperglycemia, results should be confirmed by repeat testing. In a patient with classic symptoms of hyperglycemia or hyperglycemic crisis, random plasma glucose results greater than or equal to 200 mg/dL meet the criteria for diagnosis of diabetes. Reference: Standards of Medical Care in Diabetes 2016, [place] [employer]. Diabetes Care. 2016.39(Suppl 1). LAB BUN 9-24 mg/dL BUN 10 LAB CRET 0.73-1.22 mg/dL Creatinine 0.99 LAB NA 136-144 mmol/L Sodium 136 LAB K 3.7-5.1 mmol/L Potassium 4.6 LAB CL 97-105 mmol/L Chloride Low 96 LAB CO2 22-30 mmol/L CO2 24 LAB AGAP 9-18 mmol/L Anion Gap 16 LAB ALT 10-54 U/L ALT 16 LAB GFRAA eGFR- Amer. >60 LAB GFRNAA . eGFR-All Other Races >60 Result Comment: eGFR (Estimated GFR) Units of measure: mL/min/1.73 meters squared eGFR is derived from the reexpressed MDRD Study equation using the following parameters: serum creatinine, age, gender and race. The creatinine assay has been calibrated to be traceable to IDMS. An eGFR <60 mL/min/1.73m2 for >3 months is consistent with chronic kidney disease. Refer to KDOQI guidelines for clinical interpretation. In patients with unstable renal function, e.g. those with acute kidney injury, the eGFR may not accurately reflect actual GFR. Performed By: #### HBA1C, CBCDIF, PSAS1, CMP, LIPB, TSH #### [facility] [address] [place], [place] [address] LIPID PANEL, BASIC Collected: 02/21/2018 Status: F Source: [place] 10:05 AM [facility] REPOSITORY TYPE CODE TESTS RESULT OUT OF REFERENCE UNITS RANGE LAB CHOL <200 mg/dL Cholesterol High 234 Result Comment: <200 mg/dL, Desirable 200-239 mg/dL, Borderline high >239 mg/dL, High LAB TRIGLY <150 mg/dL Triglyceride High 151 Result Comment: <150 mg/dL, Normal 150-199 mg/dL, Borderline high 200-499 mg/dL, High >499 mg/dL, Very high LAB HDL >39 mg/dL HDL-Cholesterol Low 34 Result Comment: 40-59 mg/dL, Acceptable >59 mg/dL, High: Negative risk factor for coronary heart disease <40 mg/dL, Low: Positive risk factor for coronary heart disease LAB LDL <100 mg/dL LDL-Cholesterol High 170 Result Comment: <100 mg/dL, Optimal 100-129 mg/dL, Near optimal/above optimal 130-159 mg/dL, Borderline high 160-189 mg/dL, High >189 mg/dL, Very high Secondary prevention optimal LDL Cholesterol levels are recommended to be < 70 mg/dL LAB NONHDL <130 mg/dL Non HDL High Cholesterol 200 Result Comment: <130 mg/dL, Optimal 130-159 mg/dL, Near optimal/above optimal 160-189 mg/dL, Borderline high 190-219 mg/dL, High >219 mg/dL, Very high Secondary prevention optimal non HDL Cholesterol levels are recommended to be < 100 mg/dL LAB FT hrs Fasting Time 12 LAB VLDL <30 mg/dL High VLDL Cholesterol 30 LAB TCHDL <5.10 High TC:HDL Ratio 6.88 LAB LDLHDL <2.54 High LDL:HDL Ratio 5.00 Result Comment: Reference: 1. National Cholesterol Education Program ATP III Guideline At-A-Glance Quick Desk Reference: National Heart, Lung, and Blood [place]. National Institutes of Health. 2001: NIH Publication No. 01-3305. 2. An International Atherosclerosis Society position paper: global recommendations for the management of dyslipidemia: executive summary, Atherosclerosis. 2014: 232(2):410-413. Performed By: #### HBA1C, CBCDIF, PSAS1, CMP, LIPB, TSH #### [facility] [employer] [address], [place] [address] TSH Collected: 02/21/2018 Status: F Source: [place] 10:05 AM [facility] REPOSITORY TYPE CODE TESTS RESULT OUT OF RANGE REFERENCE UNITS LAB TSH 0.400-5.500 uU/mL TSH 3.430 Performed By: #### HBA1C, CBCDIF, PSAS1, CMP, LIPB, TSH #### [facility] [address], [place] [address] ALLERGIES ALLERGIES DATE TYPE / CODE NAME / CODE REACTION SEVERITY SOURCE 06/24/2018 Drug Sulfa (Sulfonamide Hives Unknown [place] Allergy/416 Antibiotics)/[id number] Community 076106([facility] 0491(RXNORM) [facility] ED CT) Repository 06/24/2018 Drug prednisone/[id number] Unknown Unknown [place] Allergy/416 64(RXNORM) Community 437499([facility] ED CT) Repository 06/24/2018 Drug timolol/[id number]( Rash Unknown [place] Allergy/416 RXNORM) Community 334778([facility] ED CT) Repository 06/24/2018 Drug brimonidine/[id number] Rash Unknown [place] Allergy/416 196(RXNORM) Community 366261([facility] ED CT) Repository 03/04/2018 DRUG/[id number] BRIMONIDINE-TIMOLOL SWELLING [facility] 003(SNOMED [address] [place] [address]) Repository 05/17/2010 DRUG ACETAMINOPHEN GI UPSET [facility] INGREDI/419 [address] [place] 965085(SNOM Repository ED CT) 01/29/2010 DRUG MELOXICAM [facility] INGREDI/419 [address] [place] 807979(SNOM Repository ED CT) 04/25/2005 [facility] [address] [place] 204649(SNOM Repository ED CT) 04/25/2005 Drug SULFA (SULFONAMIDE HIVES [facility] Class/51088 ANTIBIOTICS) [address] [place] 1003(SNOMED Repository CT) ENCOUNTERS ENCOUNTERS ADMIT/DISCHARGE ACCOUNT ADMITTING ENCOUNTER LOCATION SOURCE NUMBER CLASS 07/03/2018 [id number] [facility] 06/24/2018/06/24/20 [id number] Emergency [facility] ing:ED Repository 06/17/2018/06/18/20 [id number] Ambulatory [address] Repository 05/23/2018/05/23/20 [id number] Ambulatory [address] Repository 03/04/2018/03/05/20 [id number] Ambulatory [address] Repository 02/21/2018/02/22/20 [id number] Ambulatory [address] Repository PAYERS PAYERS ENCOUNTER GUARANTOR PAYER SUBSCRIBER SOURCE 07/03/2018 DERRICK L Primary DERRICK L [place]ron [id number] Insurance:MEDICARE SWINEFORDDOB: Community [id number] Number: Repository [id number]: 330 [id number] [phone] () Date:2018-06-25 07/03/2018 Secondary DERRICK L [place]ron Insurance:AARPPolicy SWINEFORDDOB: [facility] Number: [id number] [facility] [id number] Repository Date:[id number], [place] [address]UU: 07/03/2018 Tertiary NOT GIVENUNK [place] Insurance:SELF PAY [facility] Number: Effective Repository Date:2018-06-25 06/24/2018 DERRICK L Primary DERRICK L [place] [id number] Insurance:MEDICARE SWINEFORDDOB: Community HEMLOCK PART A [facility] [id number] Number: Repository [id number]: 330 [id number] [phone] (HP) Date:2018-06-24 06/24/2018 Secondary DERRICK L [place] Insurance:AARPPolicy SWINEFORDDOB: Community Number: [id number] [id number] Repository Date:[id number], [place] [address]RG: 06/24/2018 Tertiary NOT GIVENUNK [place] Insurance:SELF PAY [facility]: Effective Repository Date:2018-06-24
== END 2018-06-24 11:39 | disposition home or self-care (01) ==
LOC: ED 11:14
PROVIDERS: Emergency Provider Emergency Medicine; Family Provider Internal Medicine; PCP Internal Medicine
DX: M54.5 Low back pain (principal)
CPT/HCPCS: 96372; 99283

== ENCOUNTER → 2018-07-03 15:27 | Outpatient (CLI) | payer MEDICARE, OTHER, SELFPAY ==
[2018-06-24 10:14] VITALS: BMI 25.8
--- NOTE | 2018-07-03 15:33 | MRI_ITS ---
STUDY: MRI LUMBAR SPINE WITHOUT CONTRAST REASON FOR EXAM: Male, 77 years old. Lower back pain TECHNIQUE: Standardized fat and water weighted pulse sequences were obtained in the sagittal and axial planes. COMPARISON: None FINDINGS: T12-L1: Normal endplates. Normal disc height, hydration and morphology. Normal bilateral facet joints. Normal central canal and bilateral lateral recesses. Normal bilateral intervertebral neural foramina. Normal lumbar lordosis. There is a levoscoliosis of the lumbar spine. Normal conus medullaris that terminates at the L1 level. L1-2: Endplate spondylosis. Decreased disc height and small circumferential disc bulge. Degenerative changes of the bilateral facet joints. Mild narrowing of the central canal and bilateral intervertebral neural foramina. L2-3: Endplate spondylosis. Decreased disc height and small circumferential disc bulge. Degenerative changes of the bilateral facet joints. Mild narrowing of the central canal. Mild left and moderate right intervertebral neural foraminal narrowing. L3-4: Endplate spondylosis. Decreased disc height and small circumferential disc bulge. Degenerative changes of the bilateral facet joints. Mild narrowing of the central canal. Mild left and moderate right intervertebral neural foraminal narrowing. L4-5: Endplate spondylosis. Decreased disc height and small circumferential disc bulge. Degenerative changes of the bilateral facet joints. Mild narrowing of the central canal. Mild left and moderate right intervertebral neural foraminal narrowing. L5-S1: Normal endplates. Normal disc height, hydration and morphology. Mild degenerative changes in the facet joints. Normal central canal and bilateral lateral recesses. Normal bilateral intervertebral neural foramina. Normal visualized sacral ala. Normal visualized paraspinous soft tissue structures. MRI/Spine Lumbar (Routine) IMPRESSION: Multilevel degenerative changes, as described above. Electronically Signed: Ricardo Sprague MD at 7:57 EST Tel , Service support ,
--- NOTE | 2018-07-03 15:34 | MRI_ITS ---
STUDY: MRI CERVICAL SPINE WITHOUT CONTRAST REASON FOR EXAM: Male, 77 years old. Neck pain TECHNIQUE: Standardized fat and water weighted pulse sequences were obtained in the sagittal and axial planes. COMPARISON: None FINDINGS: Normal foramen magnum and brainstem-cervical cord junction. Normal craniovertebral junction. Normal anterior atlantoaxial articulation. Normal odontoid process. Normal cervical lordosis. Normal vertebral bodies and posterior osseous elements. C2-3: Normal endplates. Normal disc height, signal and morphology. Normal central canal and intervertebral neural foramina. C3-4: There is mild loss of disc height. There is mild osteophytic ridging. There is mild bilateral facet hypertrophy. There is NO spinal or foraminal stenosis. C4-5: There is mild loss of disc height. There is mild RIGHT posterior paracentral disc bulging causing mild spinal stenosis. There is mild facet arthropathy. There is NO foraminal stenosis. C5-6: There is significant loss of disc height. There is diffuse osteophytic ridging causing mild spinal stenosis and moderate bilateral foraminal stenosis. The facet joints are unremarkable. C6-7: There is significant loss of disc height. There is diffuse osteophytic ridging causing mild spinal stenosis and moderate bilateral foraminal stenosis. The facet joints are unremarkable. C7-T1: Normal endplates. Normal disc height, signal and morphology. Normal central canal and intervertebral neural foramina. Normal cervical cord. There is NO cervical cord gliosis, edema or myelomalacia. Normal visualized soft tissue structures. MRI/Spine Cervical (Routine) IMPRESSION: There are chronic degenerative changes as described. There is NO fracture, malalignment, disc herniation or cord compression. Electronically Signed: Paco Capellan MD at 4:35 EST , Service support ,
== END ==
PROVIDERS: Family Provider Internal Medicine; PCP Internal Medicine; Referring Provider Anesthesiology Pain Medicine; Visit Provider Anesthesiology Pain Medicine
DX: M54.2 Cervicalgia (principal); M79.603 Pain in arm, unspecified; M54.9 Dorsalgia, unspecified; M79.606 Pain in leg, unspecified
CPT/HCPCS: 72141; 72148

== ENCOUNTER → 2018-09-15 16:33 | Outpatient (CLI) | payer MEDICARE, OTHER, SELFPAY ==
[2018-09-15 17:38] LABS: Amphetamine Urine VISTA NEGATIVE (<1000 ng/mL); Barbiturate Urine VISTA NEGATIVE (< 200 ng/mL); Benzodiazepine Urine VISTA NEGATIVE (< 200 ng/mL); Cocaine Urine VISTA NEGATIVE (< 300 ng/mL); Ecstacy Urine VISTA NEGATIVE (< 500 ng/mL); Methadone Urine VISTA NEGATIVE (< 300 ng/mL); PCP Urine VISTA NEGATIVE (< 25 ng/mL); THC Urine VISTA NEGATIVE (< 50 ng/mL); Vista UDS pH Range 6
== END ==
PROVIDERS: Family Provider Internal Medicine; PCP Internal Medicine; Referring Provider Anesthesiology Pain Medicine; Visit Provider Anesthesiology Pain Medicine
DX: F11.20 Opioid dependence, uncomplicated (principal)
CPT/HCPCS: 80307

== ENCOUNTER → 2019-01-05 | Outpatient (CLI) | payer MEDICARE, OTHER, SELFPAY ==
--- NOTE | 2019-01-05 13:09 | RAD_ITS ---
STUDY: X-RAY - LEFT KNEE REASON FOR EXAM: Male, 78 years old. TECHNIQUE: 2 view(s) of the knee. COMPARISON: None. FINDINGS: Normal visualized distal femur. Normal visualized proximal tibia and fibula. Normal proximal tibiofibular articulation. There is mild narrowing of the medial compartment of the knee joint. Normal lateral femorotibial compartment. Normal patellofemoral articulation. The soft tissue structures are unremarkable. No joint effusion. RAD/Knee 1 or 2 Views IMPRESSION: Mild narrowing of the medial compartment of the knee joint. Electronically Signed: Xiao Olson, at 16:43 EDT Tel , Service support ,
== END | disposition home or self-care (01) ==
PROVIDERS: Family Provider Internal Medicine; PCP Internal Medicine; Referring Provider Anesthesiology Pain Medicine; Visit Provider Anesthesiology Pain Medicine
DX: M25.562 Pain in left knee (principal)
CPT/HCPCS: 73560

== ENCOUNTER 2020-07-26 14:04 | Observation (INO) | payer MEDICARE, OTHER, SELFPAY ==
[2020-07-26 14:05] VITALS: BP 151/75; PULSE 92; RESP 16; TEMP 36.5; O2SAT 96; BMI 26.2
--- NOTE | 2020-07-26 14:21 | CT_ITS ---
STUDY: CT ABDOMEN AND PELVIS WITHOUT CONTRAST REASON FOR EXAM: Male, 79 years old. GENERALIZED ABDOMINAL PAIN. ENEMA GIVEN yesterday RADIATION DOSAGE (If Supplied By Facility): CTDIvol = ( 13.46 ) mGy, DLP = ( 643.22 ) mGycm TECHNIQUE: Transaxial images were obtained from the dome of the diaphragm to the symphysis pubis without oral contrast, and without intravenous contrast. Sagittal and coronal images were reconstructed. Individualized dose optimization techniques were used for this CT. COMPARISON: None. FINDINGS: Mild increased linear markings at the lung bases suggestive of scarring. Focal pleural plaque calcification along the anterior aspect of the lower right hemithorax. Coronary artery calcification. Normal liver. Normal gallbladder and extrahepatic biliary system. There are multiple benign calcified granulomata of the spleen. Normal pancreas. Normal bilateral adrenal glands. Normal right kidney. 1.2 cm cyst in the anterior aspect of the left kidney. 2 adjacent nonobstructive left intrarenal calculi are seen in the midportion of the left kidney. The largest measures 5.1 mm. There is a small hiatal hernia. Normal small intestine. There are multiple colonic diverticula consistent with diverticulosis. The appendix is visualized and appears normal. There is diffuse atherosclerotic calcification of the abdominal aorta and its major visceral branches, without a demonstrated aneurysm. Normal inferior vena cava. Normal retroperitoneum. Diffuse bladder wall thickening although the bladder is not completely distended. There is enlargement of the prostate gland. It measures 5.3 cm x 4.7 cm. Calcifications are seen. Normal abdominal wall. There are diffuse degenerative changes of the visualized lumbar spine. CT/Abdomen/Pelvis without Cont IMPRESSION: Prostatic enlargement. Diffuse bladder wall thickening. There are 2 nonobstructive left intrarenal calculi. Electronically Signed: Miguel Brand, at 15:10 EST , Service support ,
--- NOTE | 2020-07-26 14:25 | ED.VISSUMM ---
- ER Visit Summary Date of Service: 07/26/20 Chief Complaint: [Abdominal pain] History of Present Illness: The patient is a 79 M [presents to the emergency department complaint of abdominal pain for the last 2 to 3 days. Patient states that he had not had a good bowel movement in 2 or 3 days. He went to [facility] this morning where they gave him an enema and he had some good results with that but he states that he still continues to have abdominal discomfort. Patient's daughter brought him to our department for evaluation. Patient denies any fever. He has had no vomiting or diarrhea. He denies any blood in stool or black tarry stool. He denies chest pain or shortness of breath. He denies recent illness. He denies significant medical history. He has had prior hernia repair.] Physical Examination: [HEENT-PERRLA, EOMI. Cranial nerves II through XII grossly intact. TMs clear. Mucous membranes moist. No adenopathy. Cardiovascular-regular rate and rhythm without murmur or ectopy Lungs-clear to auscultation, chest wall stable without crepitus or subcu emphysema Abdomen-normoactive bowel sounds, soft. Patient has diffuse tenderness to palpation over the lower abdomen in the suprapubic region as well as the right lower quadrant and left lower quadrant. He is got some mild guarding. No rebound, rigidity, or cranial signs. No obvious hernias noted. No masses palpated. Extremities-intact ?4, normal range of motion, normal pulses, atraumatic] Test Results: [CBC with differential obtained showed a slightly elevated white count of 11.9, hemoglobin 12, hematocrit 37, platelets 241. Chemistry showed a sodium 124, potassium 3.2, chloride 91, CO2 26. LFTs were normal. Lipase was 84. Lactate was 1.2. CT scan of the abdomen pelvis obtained showed some thickening of the bladder wall otherwise nothing significant.] No old lab values available for the hyponatremia. Emergency Department Course and Treatment: [IV line was established on arrival. Patient was given normal saline.] Treatment Plan: [Case was discussed with hospitalist who will evaluate patient for admission.] Disposition: [Admit] Impression: [Abdominal pain Hyponatremia] This note was generated with [employer] dictation software. It may contain incorrect words, spelling, and punctuation that were not noted in review of the chart prior to signing ED Disposition - Plan for ED Patient: Referrals: Karla Walsh MD [Primary Care Provider] -
[2020-07-26] MEDS: 0.9% Normal Saline 1,000 ML 125 ML IV ×2 (14:36→22:14)
[2020-07-26 14:56] LABS: Absolute Lymphocyte Count 1.68 X10^3/uL (0.83-4.51); Absolute Neutrophil Count 9.3 X10^3/uL (2.0-7.7); Basophil# 0.03 X10^3/uL; Basophil% 0.3 % (0-1); Eosinophil# 0.02 X10^3/uL; Eosinophils% 0.2 % (0-5); Hemoglobin 12.3 g/dL (13.0-16.5); Lymphocyte # 1.68 X10^3/ul (4.0); Lymphocyte % 14.1 % (19-41); Mean Corp Hgb Conc 33.2 g/dL (32-36); Mean Corpuscular Volume 87.3 fL (80-94); Mean Platelet Vol. 9.8 fl (6.2-12.0); Monocyte# 0.88 X10^3/uL; Monocyte% 7.4 % (0-10); NRBC Flagged by Analyzer 0 % (0-5); Neutrophil # 9.25 X10^3/uL (2.7-7.7); Neutrophil % 77.7 % (47-70); Platelet Count 241 K/mm3 (150-450); RBC Distribution Width CV 12.7 % (11.6-14.6); RBC Distribution Width SD 40.1 fl (35.1-43.9); Red Blood Count 4.24 M/mm3 (4.6-6.2); White Blood Count 11.9 K/mm3 (4.4-11.0)
[2020-07-26 15:11] LABS: ALB/GLOB Ratio 1.1 RATIO (0.9-2.4); AST(SGOT) 16 U/L (15-37); Alanine Aminotransfer ALT/SGPT 19 U/L (16-61); Albumin, Serum 3.7 g/dL (3.2-5.0); Alkaline Phosphatase 83 U/L (45-117); Anion Gap 7 (5-15); BUN 4 mg/dL (7-18); BUN/Creat Ratio 5.6 RATIO (10-20); Calcium,Total 8.5 mg/dL (8.5-10.1); Chloride 91 mmol/L (98-107); Creatinine, Serum 0.72 mg/dL (0.70-1.30); EST Glomerular Filtration Rate 112 mL/min (>60); Est Glom Filt Rate - Afr Amer 136 mL/min (>60); Estimated Creatinine Clearance 55.08 ml/min; Globulin 3.3 g/dL (2.2-4.2); Glucose 113 mg/dL (74-106); Lipase 84 U/L (73-393); Potassium 3.2 mmol/L (3.5-5.1); Sodium Level 124 mmol/L (136-145)
[2020-07-26 15:24] LABS: Lactic Acid 1.2 mmol/L (0.4-1.9)
--- NOTE | 2020-07-26 15:30 | HP.PCM_ITS ---
Problem List (1) Acute constipation Status: Acute (2) Hyponatremia Status: Acute (3) Hypokalemia Status: Acute (4) Chronic kidney disease (CKD), stage III (moderate) Status: Chronic Qualifiers: Chronic kidney disease stage 3 subtype: unspecified whether 3a or 3b Qualified Code(s): N18.30 - Chronic kidney disease, stage 3 unspecified (5) Normocytic anemia Status: Chronic (6) GERD (gastroesophageal reflux disease) Status: Chronic Qualifiers: Esophagitis presence: esophagitis presence not specified Qualified Code(s): K21.9 - Gastro-esophageal reflux disease without esophagitis (7) BPPV (benign paroxysmal positional vertigo) Status: Chronic Qualifiers: Laterality: unspecified laterality Qualified Code(s): H81.10 - Benign paroxysmal vertigo, unspecified ear History of Present Illness Date of Admission: 07/26/20 Chief Complaint: Abdominal pain, recent constipation The patient is a 79 y/o M w/ PMHx: History of BPPV, Chronic pain syndrome, GERD who presents to the [facility] ED on 07/26/20 with history of recently presented to [facility] ED secondary to no bowel movement x 2-3 days, concerned about constipation with ongoing abdominal discomfort, cramping, bloating therefore patient was not drinking or eating well and at outside facility they felt he was likely constipated with administration of bowel regimen including enema with some output following and discharge to home however he continued to have lower abdominal discomfort prompting daughter to encourage him to present to an alternate ED for evaluation. Patient specifically denies any dysuria, frequency or urgency but does state that he is been going less but attributes this to less recent oral intake over the last several days secondary to abdominal cramping and discomfort. He does feel bloated currently rates his discomfort at 2-3 out of 10 in severity. Work-up in the ED included T 97.7, heart rate 92, BP 151/75, respiratory rate 16, 96% room air, CBC with WC 11.9, hemoglobin 12.3, platelet 241 with left shift, CMP with sodium 124, potassium 3.2, chloride 91, BUN/cre atinine 4/0.72, glucose 113, lactic acid 1.2, unremarkable hepatic profile, lipase 84, CT abdomen and pelvis with prostatic enlargement, diffuse bladder wall thickening, 2 nonobstructive left intrarenal calculi. In the ED patient ministered normal saline. Past Medical History Past Medical History (Chronic Problems): Chronic Problems Chronic kidney disease (CKD), stage III (moderate) (Chronic) Normocytic anemia (Chronic) GERD (gastroesophageal reflux disease) (Chronic) BPPV (benign paroxysmal positional vertigo) (Chronic) Allergies brimonidine Allergy (Verified 07/26/20 14:09) Rash Sulfa (Sulfonamide Antibiotics) Allergy (Verified 07/26/20 14:09) Hives timolol [From Combigan] Allergy (Verified 07/26/20 14:09) Rash prednisone Adverse Reaction (Verified 07/26/20 14:09) Unknown Home Medications: Ambulatory Orders Medication Instructions Recorded Esomeprazole Mag Trihydrate 40 mg PO DAILY PRN PRN 06/24/18 [Nexium] Latanoprost 0.005% [Xalatan 1 drop EACH EYE QHS 06/24/18 Opthalmic] Meclizine HCl [Antivert] 25 mg PO TID PRN PRN 06/24/18 Multivitamin/Iron/Folic Acid 1 ea PO DAILY 07/26/20 [Centrum Adults Tablet] Tramadol HCl [Ultram] 50 mg PO BID 07/26/20 Surgical History: - - Right inguinal hernia repair. Psychiatric History: No pertinent psych hx Lives: Alone Smoking Status: Never smoker Tobacco Use: Non-smoker Alcohol: None Drugs: None - *Family History Maternal History Items: Diabetes Paternal History Items: Cancer - Father with history of prostate cancer. Review of Systems Constitutional: Reports: Anorexia, Malaise, Weakness, Fatigue. Denies: Chills, Fever, Weight Change HEENT: Denies: Head Aches, Sinus Congestion, Sinus Drainage Cardiovascular: Denies: Chest Pain, Palpitations Respiratory: Denies: Cough, Shortness of breath at rest, Sputum production Gastrointestinal: Reports: Abdominal Pain, Constipation. Denies: Nausea, Vomiting Genitourinary: Denies: Dysuria Musculoskeletal: Reports: Joint Pain. Denies: Joint Tenderness Skin: Denies: Rash, Wounds Neurological: Denies: Numbness, Tingling, Focal weakness Psychiatric: Denies: Anxiety, Depression, Homicidal Ideations, Suicidal Idea tions Hematologic/ Lymphatic: Reports: Anemia, Easy Bruising, Easy Bleeding VTE Information - Inpt Only VTE Present on Admission: No VTE Mechan Device Prophylaxis: SCD's VTE Pharm Prophylaxis ordered?: Yes Subjective: Patient laying in the ED bed, fatigued appearing, notes still mild lower abdominal discomfort and distention sensation/bloating. Objective: Physical Examination: General: awake, alert, oriented x 3 and cooperative, laying in the ED bed, fatigued, notes ongoing abdominal discomfort and bloated sensation. Skin: normal color, turgor, no icterus, cyanosis. HEENT: AT/NC, EOMI, PERRLA, dry MM, no carotid bruits or JVD noted. Lungs: CTA bilaterally, moderate effort, mild decrease BL bases, no rales, ronchi or wheezing. Heart: Regular rate and rhythm; no gallop, rub audible. Abdomen: soft, mild generalized discomfort although worse bilateral lower quadrants, no rebound or guarding, mildly distended, distant decreased bowel sounds, no obvious HSM. Extremities: no cyanosis, clubbing, or edema. Neurological: patient awake, alert, oriented as noted; cognitive function intact; pupils equally reactive to light and accomodation; cranial nerves II-XII grossly normal, moving all 4 extremities, no focal deficits, strength moderately global decrease secondary to acute presentation and complaints. Psychiatric: affect appears fatigued, mildly uncomfortable, no acute evidence of depressive or anxiety feelings. - Physical Exam Vitals/I&O's: Vital Signs Temp Pulse Resp BP Pulse Ox 97.7 F L 92 16 151/75 H 96 07/26/20 14:05 07/26/20 14:05 07/26/20 14:05 07/26/20 14:05 07/26/20 14:05 Oxygen Delivery Method Room Air Weight: 167 lb 8.821 oz Body Mass Index (BMI) 26.2 Laboratory Results 07/26/20 14:35: WBC 11.9 H, RBC 4.24 L, Hgb 12.3 L, Hct 37.0 L, MCV 87.3, MCH 29.0, MCHC 33.2, RDW Std Deviation 40.1, RDW Coeff of Valery 12.7, Plt Count 241, MPV 9.8, Immature Gran % (Auto) 0.300, Neut % (Auto) 77.7 H, Lymph % (Auto) 14.1 L, [place] % (Auto) 7.4, Eos % (Auto) 0.2, Baso % (Auto) 0.3, Absolute Neuts (auto) 9.3 H, Absolute Lymphs (auto) 1.68, Nucleated RBC % 0 07/26/20 14:35: Sodium 124 L, Potassium 3.2 L, Chloride 91 L, Carbon Dioxide 26.0, Anion Gap 7, BUN 4 L, Creatinine 0.72, Estim Creat Clear Calc 55.08, Est GFR (MDRD) Af Amer 136, Est GFR (MDRD) Non-Af 112, BUN/Creatinine Ratio 5.6 L, Glucose 113 H, Calcium 8.5, Total Bilirubin 0.70, AST 16, ALT 19, Alkaline Phosphatase 83, Total Protein 7.0, Albumin 3.7, Globulin 3.3, Albumin/Globulin Ratio 1.1, Lipase 84 07/26/20 14:35: Lactic Acid 1.2 Current Medications Sodium Chloride () 1,000 mls @ 125 mls/hr IV .Q8H NATA Last Admin: 07/26/20 14:36 Dose: 125 mls/hr Documented by: Assessment/Plan All Active Problems Acute constipation (Acute) Hyponatremia (Acute) Hypokalemia (Acute) The patient is a 79 y/o M w/ PMHx: History of BPPV, Chronic pain syndrome, GERD who presents to the [facility] ED on 07/26/20 with history of recently presented to [facility] ED secondary to no bowel movement x 2-3 days, concerned about constipation with ongoing abdominal discomfort, cramping, bloating therefore patient was not drinking or eating well and at outside facility they felt he was likely constipated with administration of bowel regimen including enema with some output following and discharge to home however he continued to have lower abdominal discomfort. 1. Acute lower abdominal pain, suspected secondary to Acute on Chronic Constipation: Recent significant constipation requiring enemas at outside facility, will mid to medical surgical floor, will initiate bowel regimen and closely monitor for alteration in case onset diarrhea or more aggressive regimen necessary, will obtain urinalysis especially given thickened bladder appearance on CT scan, if unremarkable especially given enlarged prostate may need to consider further prostate evaluation, will add Flomax given patient history, as needed oral and pain regimen as needed. If UA significant we will add appropriate antibiotic therapy. 2. Acute Hyponatremia, presumed hypovolemic: Given patient poor recent intake over the last several days suspect likely hypovolemic, will continue to judiciously hydrate, trend BMP, to be cautious will obtain urine awesome, TSH, FeNa. 3. Hypokalemia: Admission K+ 3.2, magnesium level requested, supplementation given, repeat level in AM. 4. Chronic Kidney Disease Stage III, presumed chronic: Admission BUN/Cr 4/0.72, baseline renal function unknown but do suspect likely underlying chronic component but will judiciously hydrate as noted and plan repeat BMP in AM. 5. Normocytic anemia, presumed chronic: Admission hemoglobin 12.3, MCV normal, will obtain iron panel, ferritin, request guaiac given patient generalized complaints. 6. DVT prophylaxis: SCDs, Lovenox. 7. CODE status: Patient HCPOA is Lennie Cope and living will is currently in place. Discussed CODE status at length including difference between FULL code, DNR-CCA and DNR-CC status. Following discussions about the differences in these status, requested Full Code status. Advanced Care Planning Face to Face Time: 16 minutes. OBSV E&M: 41980 Initial observation care L3 Procedures: 68585 Advncd Care Plan 30 Min
--- NOTE | 2020-07-26 16:11 | NURSING ---
MED SURG OBS ABD PAIN, HYPONATREMIA WHITE
[2020-07-26 16:14] VITALS: BP 129/92; PULSE 92; RESP 19; TEMP 36.5; O2SAT 97
[2020-07-26 16:27] LABS: Bacteria 0 SEEN /hpf (None Seen); Mucous, Urine 0 SEEN /hpf (<or=2+); Red Blood Cells-Urine 0 SEEN /hpf (0-5); Squamous Epithelial Cells - UA 0 SEEN /hpf (0-5)
[2020-07-26 16:29] LABS: Color, Urine Yellow (Yellow); Glucose, Dipstick Normal (Normal); Ketone-Dipstick 15 mg/dl (Negative); Leukocyte Esterase-Dipstick 25 /ul (Negative); Nitrite-Dipstick Negative (Negative); Occult Blood-Urine Negative /ul (Negative); Protein-Dipstick Negative (Negative); Specific Gravity, Urine 1.015 (1.002-1.030); Urine Bilirubin Dipstick Negative (Negative); Urine Clarity Clear (Clear); Urine Urobilinogen Normal (Normal)
[2020-07-26 16:31] VITALS: BMI 27.3
[2020-07-26 16:35] VITALS: BMI 27.4
[2020-07-26 16:40] VITALS: BP 130/68; PULSE 75; RESP 12; TEMP 36.2; O2SAT 98
[2020-07-26 16:43] LABS: White Blood Cells 0-5 SEEN /hpf (0-5)
[2020-07-26 17:45] LABS: Ferritin 265 ng/mL (26-388); Iron 100 ug/dL (65-175); Iron Binding Capacity,Total 275 ug/dL (250-450); Magnesium 1.8 mg/dL (1.6-2.6); PERCENT IRON SATURATION 36.4 % (15.0-55.0); Thyroid Stim Hormone (TSH) 2.46 uIU/mL (0.358-3.74)
[2020-07-26 18:15] VITALS: O2SAT 98
[2020-07-26 18:30] LABS: Urine Sodium 77 mmol/L (Not Establ.)
[2020-07-26 18:38] LABS: Osmolality, Urine 358 mOsm/KG
[2020-07-26] MEDS: Polyethylene Glycol 3350 17 GM PACKET PO (18:45)
[2020-07-26] MEDS: Ceftriaxone 1 GM/50 ML BAG IV (18:49)
[2020-07-26 21:18] VITALS: BP 128/76; PULSE 72; RESP 18; TEMP 36.8; O2SAT 97
[2020-07-26] MEDS: Famotidine 20 MG Tablet PO (21:29)
[2020-07-26] MEDS: Latanoprost 0.005% 1 Bottle 1 DRP EACH EYE (21:30)
[2020-07-26] MEDS: traMADol 50 MG Tablet PO (21:30)
[2020-07-26 22:11] LABS: Anion Gap 6 (5-15); BUN 4 mg/dL (7-18); BUN/Creat Ratio 6.3 RATIO (10-20); Calcium,Total 7.9 mg/dL (8.5-10.1); Chloride 93 mmol/L (98-107); Creatinine, Serum 0.64 mg/dL (0.70-1.30); EST Glomerular Filtration Rate 128 mL/min (>60); Est Glom Filt Rate - Afr Amer 155 mL/min (>60); Estimated Creatinine Clearance 55.08 ml/min; Glucose 110 mg/dL (74-106); Potassium 3.7 mmol/L (3.5-5.1); Sodium Level 124 mmol/L (136-145)
[2020-07-27 02:37] VITALS: BP 129/81; PULSE 75; RESP 18; TEMP 36.7; O2SAT 98
[2020-07-27 05:34] LABS: Absolute Lymphocyte Count 1.72 X10^3/uL (0.83-4.51); Basophil# 0.02 X10^3/uL; Basophil% 0.3 % (0-1); Eosinophil# 0.13 X10^3/uL; Eosinophils% 1.7 % (0-5); Hematocrit 32.6 % (40-54); Hemoglobin 11.1 g/dL (13.0-16.5); Lymphocyte # 1.72 X10^3/ul (4.0); Lymphocyte % 22.1 % (19-41); Mean Corpuscular Hgb 29.7 pg (27.0-32.0); Mean Corpuscular Volume 87.2 fL (80-94); Mean Platelet Vol. 9.4 fl (6.2-12.0); Monocyte# 0.89 X10^3/uL; Monocyte% 11.5 % (0-10); NRBC Flagged by Analyzer 0 % (0-5); Neutrophil # 4.99 X10^3/uL (2.7-7.7); Neutrophil % 64.1 % (47-70); Platelet Count 193 K/mm3 (150-450); RBC Distribution Width CV 12.5 % (11.6-14.6); RBC Distribution Width SD 40.1 fl (35.1-43.9); Red Blood Count 3.74 M/mm3 (4.6-6.2); White Blood Count 7.8 K/mm3 (4.4-11.0)
[2020-07-27 05:56] LABS: ALB/GLOB Ratio 1.1 RATIO (0.9-2.4); AST(SGOT) 14 U/L (15-37); Alanine Aminotransfer ALT/SGPT 17 U/L (16-61); Albumin, Serum 3.1 g/dL (3.2-5.0); Alkaline Phosphatase 73 U/L (45-117); Anion Gap 2 (5-15); BUN 3 mg/dL (7-18); BUN/Creat Ratio 4.4 RATIO (10-20); Calcium,Total 8.1 mg/dL (8.5-10.1); Chloride 99 mmol/L (98-107); Creatinine, Serum 0.69 mg/dL (0.70-1.30); EST Glomerular Filtration Rate 118 mL/min (>60); Est Glom Filt Rate - Afr Amer 142 mL/min (>60); Estimated Creatinine Clearance 55.08 ml/min; Globulin 2.8 g/dL (2.2-4.2); Glucose 106 mg/dL (74-106); Potassium 4.1 mmol/L (3.5-5.1); Protein, Total 5.9 g/dL (6.4-8.2); Sodium Level 128 mmol/L (136-145)
[2020-07-27] MEDS: 0.9% Normal Saline 1,000 ML 125 ML IV (06:19)
[2020-07-27 08:30] VITALS: O2SAT 95
--- NOTE | 2020-07-27 08:33 | PCM.PN.HOSP ---
Patient Problems: Active and Suspected Problems Acute constipation (Acute) Hyponatremia (Acute) Hypokalemia (Acute) Objective: Heart rate and blood pressure are controlled. No fever Vitals/I&O's: Vital Signs Temp Pulse Resp BP Pulse Ox 98.1 F 75 18 129/81 H 98 07/27/20 02:37 07/27/20 02:37 07/27/20 02:37 07/27/20 02:37 07/27/20 02:37 Oxygen Delivery Method Room Air Weight: 175 lb Body Mass Index (BMI) 27.3 Intake and Output for Last 24 Hours 07/25/20 07/26/20 07/27/20 23:59 23:59 23:59 Intake Total 1127.08 / 1127.08 1560 / 1560 Output Total 250 / 250 Balance 877.08 / 877.08 1560 / 1560 Microbiology Past 72 Hours 07/26/20 21:40 Stool Stool Occult Blood (GAIL) - Final Laboratory Results 07/26/20 14:35: WBC 11.9 H, RBC 4.24 L, Hgb 12.3 L, Hct 37.0 L, MCV 87.3, MCH 29.0, MCHC 33.2, RDW Std Deviation 40.1, RDW Coeff of Valery 12.7, Plt Count 241, MPV 9.8, Immature Gran % (Auto) 0.300, Neut % (Auto) 77.7 H, Lymph % (Auto) 14.1 L, [place] % (Auto) 7.4, Eos % (Auto) 0.2, Baso % (Auto) 0.3, Absolute Neuts (auto) 9.3 H, Absolute Lymphs (auto) 1.68, Nucleated RBC % 0 07/26/20 14:35: Sodium 124 L, Potassium 3.2 L, Chloride 91 L, Carbon Dioxide 26.0, Anion Gap 7, BUN 4 L, Creatinine 0.72, Estim Creat Clear Calc 55.08, Est GFR (MDRD) Af Amer 136, Est GFR (MDRD) Non-Af 112, BUN/Creatinine Ratio 5.6 L, Glucose 113 H, Calcium 8.5, Total Bilirubin 0.70, AST 16, ALT 19, Alkaline Phosphatase 83, Total Protein 7.0, Albumin 3.7, Globulin 3.3, Albumin/Globulin Ratio 1.1, Lipase 84 07/26/20 14:35: Lactic Acid 1.2 07/26/20 14:35: Magnesium 1.8, Iron 100, TIBC 275, Iron Saturation 36.4, Ferritin 265, TSH 2.46, Free T4 0.90 07/26/20 16:20: Urine Color Yellow, Urine Clarity Clear, Urine pH 6.0, Ur Specific [place] 1.015, Urine Protein Negative, Urine Glucose (UA) Normal, Urine Ketones 15 H, Urine Occult Blood Negative, Urine Nitrite Negative, Urine Bilirubin Negative, Urine Urobilinogen Normal, Ur Leukocyte Esterase 25 H, Urine RBC 0 SEEN, Urine WBC 0-5 SEEN, Ur Squamous Epith Cells 0 SEEN, Urine Bacteria 0 SEEN, Urine Mucus 0 SEEN 07/26/20 18:18: Urine Osmolality 358, Ur Random Sodium 77, Urine Creatinine 110.00 07/26/20 21:52: Sodium 124 L, Potassium 3.7, Chloride 93 L, Carbon Dioxide 25.0, Anion Gap 6, BUN 4 L, Creatinine 0.64 L, Estim Creat Clear Calc 55.08, Est GFR (MDRD) Af Amer 155, Est GFR (MDRD) Non-Af 128, BUN/Creatinine Ratio 6.3 L, Glucose 110 H, Calcium 7.9 L 07/27/20 05:30: WBC 7.8, RBC 3.74 L, Hgb 11.1 L, Hct 32.6 L, MCV 87.2, MCH 29.7, MCHC 34.0, RDW Std Deviation 40.1, RDW Coeff of Valery 12.5, Plt Count 193, MPV 9.4, Immature Gran % (Auto) 0.300, Neut % (Auto) 64.1, Lymph % (Auto) 22.1, [place] % (Auto) 11.5 H, Eos % (Auto) 1.7, Baso % (Auto) 0.3, Absolute Neuts (auto) 5.0, Absolute Lymphs (auto) 1.72, Nucleated RBC % 0 07/27/20 05:30: Sodium 128 L, Potassium 4.1, Chloride 99, Carbon Dioxide 27.0, Anion Gap 2 L, BUN 3 L, Creatinine 0.69 L, Estim Creat Clear Calc 55.08, Est GFR (MDRD) Af Amer 142, Est GFR (MDRD) Non-Af 118, BUN/Creatinine Ratio 4.4 L, Glucose 106, Calcium 8.1 L, Total Bilirubin 0.70, AST 14 L, ALT 17, Alkaline Phosphatase 73, Total Protein 5.9 L, Albumin 3.1 L, Globulin 2.8, Albumin/Globulin Ratio 1.1 Current Medications Acetaminophen (Acetaminophen 325 Mg Tablet) 650 mg PO Q6H PRN PRN PRN Reason: Pain Score 1-10/Temp > 100.7 F Al Hydroxide/Mg Hydroxide (Mag Hydrox/Al Hydrox/Simeth 30 Ml Udc) 30 ml PO Q6H PRN PRN PRN Reason: Gastric Burning Albuterol Sulfate (Albuterol 2.5 Mg/3 Ml Vial.Neb.) 2.5 mg INHALATION Q2H PRN PRN PRN Reason: Dyspnea, wheezing Enoxaparin Sodium (Enoxaparin 40 Mg/0.4 Ml Syringe) 40 mg SC DAILY [facility] Famotidine (Famotidine 20 Mg Tablet) 20 mg PO BID [facility] Last Admin: 07/26/20 21:29 Dose: 20 mg Documented by: Guaifenesin (Guaifenesin 10 Ml Udc (200mg/10ml)) 20 ml PO Q4H PRN PRN PRN Reason: COUGH Hydralazine HCl (Hydralazine 20 Mg/Ml Vial) 10 mg IV Q4H PRN PRN PRN Reason: SBP > 160 Sodium Chloride () 1,000 mls @ 125 mls/hr IV .Q8H [facility] Last Admin: 07/27/20 06:19 Dose: 125 mls/hr Documented by: Ceftriaxone Sodium (Rocephin) 1 gm in 50 mls @ 100 mls/hr IV Q24 [facility] Last Infusion: 07/26/20 19:25 Dose: Infused Documented by: Latanoprost (Latanoprost 0.005% 1 Bottle) 1 drop EACH EYE QHS [facility] Last Admin: 07/26/20 21:30 Dose: 1 drop Documented by: Magnesium Hydroxide (Magnesium Hydroxide 30 Ml Udc) 30 ml PO DAILY PRN PRN PRN Reason: Constipation Melatonin (Melatonin 3 Mg Tablet) 3 mg PO QHS PRN PRN PRN Reason: INSOMNIA Ondansetron HCl (Ondansetron 4 Mg/2 Ml Vial) 4 mg IV Q8H PRN PRN PRN Reason: NAUSEA/VOMITING Polyethylene Glycol (Polyethylene Glycol 3350 17 Gm Packet) 17 gm PO DAILY [facility] Last Admin: 07/26/20 18:45 Dose: 17 gm Documented by: Prochlorperazine Edisylate (Prochlorperazine 10 Mg/2 Ml Vial) 5 mg IV Q4H PRN PRN PRN Reason: Breakthrough nausea/vomiting Psyllium Hydrophilic Mucilloid (Psyllium 1 Packet) 1 packet PO DAILY PRN PRN PRN Reason: Constipation Senna/Docusate Sodium (Senna/Docusate Sodium 1 Tablet) 2 tablet PO BID PRN PRN PRN Reason: Constipation Sodium Chloride (0.9% Saline Lock 10 Ml Syringe) 10 - 40 ml IV UD PRN PRN Reason: SALINE FLUSH Tamsulosin HCl (Tamsulosin Hcl 0.4 Mg Capsule) 0.4 mg PO DAILY@1730 [facility] Throat Lozenges (Benzocaine/Menthol 1 Lozenge) 1 lozenge MUCOUS MEM Q2H PRN PRN PRN Reason: SORE THROAT Tramadol HCl (Tramadol 50 Mg Tablet) 50 mg PO BID [facility] Last Admin: 07/26/20 21:30 Dose: 50 mg Documented by: Medical Necessity - Tobacco Use Smoking Status: Never smoker Tobacco Use: Non-smoker Assessment/Plan All Active Problems Acute constipation (Acute) Hyponatremia (Acute) Hypokalemia (Acute) The patient is a 79 y/o M with history of chronic kidney stage III and chronic anemia was admitted constipation with abdominal discomfort cramping bloating sensation for 3 days. He had an IA in [facility] and had some success but is still feels abdominals discomfort. Denies any black stool, hematemesis or melena. CT abdomen reported normal small intestine and multiple colonic diverticula consistent with diverticulosis. Normal liver, spleen and biliary system. Normal pancreas. Small hiatus hernia. 1. Acute lower abdominal pain, acute on chronic Constipation: CT scan reviewed. Stool for occult blood negative. 2. Acute Hyponatremia, presumed hypovolemic: Patient and free T4 normal. Patient not on diuretic. UA is negative of dysuria. Negative nitrite. Urine osmolality 358, random sodium 77. Culture pending. 3. Hypokalemia: Admission K+ 3.2, magnesium level requested, supplementation given, repeat level in AM. 4. Chronic Kidney Disease Stage III, presumed chronic: Admission BUN/Cr 4/0.72, baseline renal function unknown but do suspect likely underlying chronic component but will judiciously hydrate as noted and plan repeat BMP in AM. 5. Normocytic anemia, presumed chronic: Admission hemoglobin 12.3, MCV normal, will obtain iron panel, ferritin, request guaiac given patient generalized complaints. 6. DVT prophylaxis: SCDs, Lovenox. Clinical Impression(s) from Imaging Studies Abdomen/Pelvis CT 07/26/20 14:21 IMPRESSION: Prostatic enlargement. Diffuse bladder wall thickening. There are 2 nonobstructive left intrarenal calculi.
[2020-07-27 08:37] VITALS: BP 140/70; PULSE 74; RESP 18; TEMP 36.6; O2SAT 97
[2020-07-27] MEDS: Ceftriaxone 1 GM/50 ML BAG IV (10:56)
[2020-07-27] MEDS: traMADol 50 MG Tablet PO (11:01)
[2020-07-27] MEDS: Polyethylene Glycol 3350 17 GM PACKET PO (11:04)
[2020-07-27] MEDS: Enoxaparin 40 MG/0.4 ML Syringe SC (11:04)
--- NOTE | 2020-07-27 11:09 | CASEMGMT ---
TOÑO KLINE NOTE: Per Dr Smith, plan is for pt to discharge this afternoon. RN CM to room to talk with pt and discuss discharge planning/needs. Pt states he drives and is independent w/ADL's and IADL's. He states he lives alone and daughter, Lennie lives nearby and able to help if needed. She assists w/financials/bills at times and also with getting groceries at times. He states he does not use any DME and denies needs. He has no concerns/questions with going home @ d/c and denies discharge planning needs. Made aware to ask for RN RAISA if anything arises. Lindsay WILLSON RN, CM
--- NOTE | 2020-07-27 11:35 | DCINST_ITS ---
- Discharge Diagnoses Current Active Problems: Current Active and Chronic Problems Acute constipation (Acute) Hyponatremia (Acute) Hypokalemia (Acute) Chronic kidney disease (CKD), stage III (moderate) (Chronic) Normocytic anemia (Chronic) GERD (gastroesophageal reflux disease) (Chronic) BPPV (benign paroxysmal positional vertigo) (Chronic) You will use the following diet at home:: Regular, High fiber Your food should be the consistency of: Regular Discharge Activity: May Not Drive Weight Bearing Status: Weight bearing as tolerated Call your doctor if you observe: Numbness or Tingling, Change in Color, Inability to urinate, Inability to have a bowel movement, Shortness of breath, Dizziness, Fainting spells, Swelling in the ankles, Chest pain, Prolonged hiccoughing, Increased palpitations (irregular heartbeat), Calf discomfort, Uncontrolled pain Allergies/Adverse Reactions: Allergies brimonidine Allergy (Verified 07/26/20 14:09) Rash Sulfa (Sulfonamide Antibiotics) Allergy (Verified 07/26/20 14:09) Hives timolol [From Combigan] Allergy (Verified 07/26/20 14:09) Rash prednisone Adverse Reaction (Verified 07/26/20 14:09) Unknown Medications to take at Discharge Esomeprazole Mag Trihydrate [Nexium] 40 mg PO DAILY PRN PRN 06/24/18 Latanoprost 0.005% [Xalatan Opthalmic] 1 drop EACH EYE QHS 06/24/18 Meclizine HCl [Antivert] 25 mg PO TID PRN PRN 06/24/18 Multivitamin/Iron/Folic Acid [Centrum Adults Tablet] 1 ea PO DAILY 07/26/20 Tramadol HCl [Ultram] 50 mg PO BID 07/26/20 Bisacodyl [Dulcolax] 10 mg RECTAL DAILY PRN PRN #30 suppos. 07/27/20 Polyethylene Glycol 3350 [Miralax] 17 gm PO DAILY #30 packet 07/27/20 Psyllium [Metamucil] 1 packet PO BID #30 packet 07/27/20 Senna/Docusate Sodium [Senokot-S] 2 tab PO BID PRN PRN tab 07/27/20 Tamsulosin HCl [Flomax] 0.4 mg PO DAILY@1730 #30 cap 07/27/20 The following prescriptions were given: Bisacodyl [Dulcolax] 10 mg RECTAL DAILY PRN PRN #30 suppos. PRN Reason: severe constipation Transmission Status: Pending to [place] [id number] [address] [facility]. Tamsulosin HCl [Flomax] 0.4 mg PO DAILY@1730 #30 cap Transmission Status: Pending to [address] Psyllium [Metamucil] 1 packet PO BID #30 packet Transmission Status: Pending to [address] Polyethylene Glycol 3350 [Miralax] 17 gm PO DAILY #30 packet [facility]: [facility]. Primary Care Physician: Karla Walsh MD [Primary Care Provider] - Please follow up with your Primary Care Physician in: In 1 to 2 weeks Test Results: Test results from this visit will be discussed in further detail at your follow- up appointment, if applicable.
--- NOTE | 2020-07-27 13:20 | DS.PCM_ITS ---
Discharge Date and Diagnosis - Problem List Patient Problems: Active and Suspected Problems Acute constipation (Acute) Hyponatremia (Acute) Hypokalemia (Acute) Date of Admission: 07/26/20 Date of Discharge: 07/27/20 - Primary Discharge Diagnosis Acute Problems: Active Problems Acute constipation (Acute) Hyponatremia (Acute) Hypokalemia (Acute) - Secondary Discharge Diagnosis Chronic Problems: Chronic Problems Chronic kidney disease (CKD), stage III (moderate) (Chronic) Normocytic anemia (Chronic) GERD (gastroesophageal reflux disease) (Chronic) BPPV (benign paroxysmal positional vertigo) (Chronic) Hospital Course and Treatment Summary of Care Provided: [] The patient is a 79 y/o M with history of chronic kidney stage III and chronic anemia was admitted constipation with abdominal discomfort cramping bloating sensation for 3 days. He had an ID in [facility] and had some success but is still feels abdominals discomfort. Denies any black stool, hematemesis or melena. CT abdomen reported normal small intestine and multiple colonic diverticula consistent with diverticulosis. Normal liver, spleen and biliary system. Normal pancreas. Small hiatus hernia. 1. Acute lower abdominal pain, acute on chronic Constipation: CT scan reviewed. Stool for occult blood negative. Patient is moving bowel. Patient was prescribed MiraLAX, Metamucil and Dulcolax suppository to take based on the severity of constipation. Senna S2 tablets twice daily as needed [id number]. Follow with PCP. 2. Acute Hyponatremia, presumed hypovolemic: Patient and free T4 normal. Patient not on diuretic. UA is negative of pyuria. Negative nitrite. Urine osmolality 358, random sodium 77. Denies 0.4 suggestive of prerenal hyponatremia. Patient was treated with IV fluid normal saline. Patient does not have dysuria/burning micturition. Urine culture shows no growth. 3. Hypokalemia: Admission K+ 3.2, magnesium level requested, supplementation given, repeat level in AM. 4. Chronic Kidney Disease Stage III, presumed chronic: Admission BUN/Cr 4/0.72, baseline renal function unknown. Kidney function is on baseline. 5. Normocytic anemia, presumed chronic: Admission hemoglobin 12.3, MCV normal, will obtain iron panel, ferritin, request guaiac given patient generalized complaints. 6. DVT prophylaxis: SCDs, Lovenox. Discharge medication reconciliation done. Discharge follow-up instructions completed. Discharge process discussed with the patient and all questions were answered to patient's satisfaction. Total time spent, exact 35 minutes on discharge meds reconciliation, examination, coordination of care with nurses and ancillary staff, review of imaging and blood test and discussion with the patient on follow-up instructions Clinical Impression(s) from Imaging Studies Abdomen/Pelvis CT 07/26/20 14:21 IMPRESSION: Prostatic enlargement. Diffuse bladder wall thickening. There are 2 nonobstructive left intrarenal calculi. Patient Problems: Active and Suspected Problems Acute constipation (Acute) Hyponatremia (Acute) Hypokalemia (Acute) Objective: Seen and examined. Patient moved 3 times bowel movement in the morning since admission. Has mild discomfort which has almost resolved. No fever or chills. Has history of chronic constipation and has received enema in the [facility]. Heart rate and blood pressure in normal range. Physical exam General: Alert, Oriented x3, Cooperative HEENT: Atraumatic, PERRLA, EOMI, Normocephalic Oral: No Gingival or Mucosal Lesions/ Ulcerations Neck: Supple, No JVD, Negative Carotid Bruits Lungs: Air entry diminished in bilateral lung bases. No crepitation/rhonchi Cardiovascular: Regular rate, Regular Rhythm, Normal S1, Normal S2, No murmurs Abdomen: Bowel Sounds Present, Soft, Non Tender, Non-Distended : No renal angle tenderness. No suprapubic tenderness. Extremities: No edema, Capillary Refill Less than 3 Seconds Skin: No rashes, No breakdown Musculoskeletal: No Tenderness to Palpation of Joints or Extremities Neurological: Cranial nerves II-XII grossly intact, Deep Tendon Reflexes 2+/4 and Symmetrical, Neuro grossly intact Psych/Mental Status: Normal Affect, Appropriate. - Physical Exam Vitals/I&O's: Vital Signs Temp Pulse Resp BP Pulse Ox 97.8 F 74 18 140/70 H 97 07/27/20 08:37 07/27/20 08:37 07/27/20 08:37 07/27/20 08:37 07/27/20 08:37 Oxygen Delivery Method Room Air Weight: 175 lb Body Mass Index (BMI) 27.3 Intake and Output for Last 24 Hours 07/25/20 07/26/20 07/27/20 23:59 23:59 23:59 Intake Total 1127.08 / 1127.08 3189.17 / 3189.17 Output Total 250 / 250 Balance 877.08 / 877.08 3189.17 / 3189.17 Microbiology Past 72 Hours 07/26/20 16:20 Urine, Clean Catch Urine Culture - Preliminary Culture exhibits no growth. 07/26/20 21:40 Stool Stool Occult Blood (GAIL) - Final Laboratory Results 07/26/20 14:35: WBC 11.9 H, RBC 4.24 L, Hgb 12.3 L, Hct 37.0 L, MCV 87.3, MCH 29.0, MCHC 33.2, RDW Std Deviation 40.1, RDW Coeff of Valery 12.7, Plt Count 241, MPV 9.8, Immature Gran % (Auto) 0.300, Neut % (Auto) 77.7 H, Lymph % (Auto) 14.1 L, [place] % (Auto) 7.4, Eos % (Auto) 0.2, Baso % (Auto) 0.3, Absolute Neuts (auto) 9.3 H, Absolute Lymphs (auto) 1.68, Nucleated RBC % 0 07/26/20 14:35: Sodium 124 L, Potassium 3.2 L, Chloride 91 L, Carbon Dioxide 26.0, Anion Gap 7, BUN 4 L, Creatinine 0.72, Estim Creat Clear Calc 55.08, Est GFR (MDRD) Af Amer 136, Est GFR (MDRD) Non-Af 112, BUN/Creatinine Ratio 5.6 L, Glucose 113 H, Calcium 8.5, Total Bilirubin 0.70, AST 16, ALT 19, Alkaline Phosphatase 83, Total Protein 7.0, Albumin 3.7, Globulin 3.3, Albumin/Globulin Ratio 1.1, Lipase 84 07/26/20 14:35: Lactic Acid 1.2 07/26/20 14:35: Magnesium 1.8, Iron 100, TIBC 275, Iron Saturation 36.4, Ferritin 265, TSH 2.46, Free T4 0.90 07/26/20 16:20: Urine Color Yellow, Urine Clarity Clear, Urine pH 6.0, Ur Specific [place] 1.015, Urine Protein Negative, Urine Glucose (UA) Normal, Urine Ketones 15 H, Urine Occult Blood Negative, Urine Nitrite Negative, Urine Bilirubin Negative, Urine Urobilinogen Normal, Ur Leukocyte Esterase 25 H, Urine RBC 0 SEEN, Urine WBC 0-5 SEEN, Ur Squamous Epith Cells 0 SEEN, Urine Bacteria 0 SEEN, Urine Mucus 0 SEEN 07/26/20 18:18: Urine Osmolality 358, Ur Random Sodium 77, Urine Creatinine 110.00 07/26/20 21:52: Sodium 124 L, Potassium 3.7, Chloride 93 L, Carbon Dioxide 25.0, Anion Gap 6, BUN 4 L, Creatinine 0.64 L, Estim Creat Clear Calc 55.08, Est GFR (MDRD) Af Amer 155, Est GFR (MDRD) Non-Af 128, BUN/Creatinine Ratio 6.3 L, Glucose 110 H, Calcium 7.9 L 07/27/20 05:30: WBC 7.8, RBC 3.74 L, Hgb 11.1 L, Hct 32.6 L, MCV 87.2, MCH 29.7, MCHC 34.0, RDW Std Deviation 40.1, RDW Coeff of Valery 12.5, Plt Count 193, MPV 9.4, Immature Gran % (Auto) 0.300, Neut % (Auto) 64.1, Lymph % (Auto) 22.1, [place] % (Auto) 11.5 H, Eos % (Auto) 1.7, Baso % (Auto) 0.3, Absolute Neuts (auto) 5.0, Absolute Lymphs (auto) 1.72, Nucleated RBC % 0 07/27/20 05:30: Sodium 128 L, Potassium 4.1, Chloride 99, Carbon Dioxide 27.0, Anion Gap 2 L, BUN 3 L, Creatinine 0.69 L, Estim Creat Clear Calc 55.08, Est GFR (MDRD) Af Amer 142, Est GFR (MDRD) Non-Af 118, BUN/Creatinine Ratio 4.4 L, Glucose 106, Calcium 8.1 L, Total Bilirubin 0.70, AST 14 L, ALT 17, Alkaline Phosphatase 73, Total Protein 5.9 L, Albumin 3.1 L, Globulin 2.8, Albumin/Globulin Ratio 1.1 Current Medications Acetaminophen (Acetaminophen 325 Mg Tablet) 650 mg PO Q6H PRN PRN PRN Reason: Pain Score 1-10/Temp > 100.7 F Al Hydroxide/Mg Hydroxide (Mag Hydrox/Al Hydrox/Simeth 30 Ml Udc) 30 ml PO Q6H PRN PRN PRN Reason: Gastric Burning Albuterol Sulfate (Albuterol 2.5 Mg/3 Ml Vial.Neb.) 2.5 mg INHALATION Q2H PRN PRN PRN Reason: Dyspnea, wheezing Enoxaparin Sodium (Enoxaparin 40 Mg/0.4 Ml Syringe) 40 mg SC DAILY [facility] Last Admin: 07/27/20 11:04 Dose: 40 mg Documented by: Famotidine (Famotidine 20 Mg Tablet) 20 mg PO BID [facility] Last Admin: 07/27/20 11:07 Dose: Not Given Documented by: Guaifenesin (Guaifenesin 10 Ml Udc (200mg/10ml)) 20 ml PO Q4H PRN PRN PRN Reason: COUGH Hydralazine HCl (Hydralazine 20 Mg/Ml Vial) 10 mg IV Q4H PRN PRN PRN Reason: SBP > 160 Sodium Chloride () 1,000 mls @ 125 mls/hr IV .Q8H [facility] Last Infusion: 07/27/20 11:26 Dose: 125 mls/hr Documented by: Ceftriaxone Sodium (Rocephin) 1 gm in 50 mls @ 100 mls/hr IV Q24 [facility] Last Infusion: 07/27/20 11:26 Dose: Infused Documented by: Latanoprost (Latanoprost 0.005% 1 Bottle) 1 drop EACH EYE QHS [facility] Last Admin: 07/26/20 21:30 Dose: 1 drop Documented by: Magnesium Hydroxide (Magnesium Hydroxide 30 Ml Udc) 30 ml PO DAILY PRN PRN PRN Reason: Constipation Melatonin (Melatonin 3 Mg Tablet) 3 mg PO QHS PRN PRN PRN Reason: INSOMNIA Ondansetron HCl (Ondansetron 4 Mg/2 Ml Vial) 4 mg IV Q8H PRN PRN PRN Reason: NAUSEA/VOMITING Polyethylene Glycol (Polyethylene Glycol 3350 17 Gm Packet) 17 gm PO DAILY [facility] Last Admin: 07/27/20 11:04 Dose: 17 gm Documented by: Prochlorperazine Edisylate (Prochlorperazine 10 Mg/2 Ml Vial) 5 mg IV Q4H PRN PRN PRN Reason: Breakthrough nausea/vomiting Psyllium Hydrophilic Mucilloid (Psyllium 1 Packet) 1 packet PO DAILY PRN PRN PRN Reason: Constipation Senna/Docusate Sodium (Senna/Docusate Sodium 1 Tablet) 2 tablet PO BID PRN PRN PRN Reason: Constipation Sodium Chloride (0.9% Saline Lock 10 Ml Syringe) 10 - 40 ml IV UD PRN PRN Reason: SALINE FLUSH Tamsulosin HCl (Tamsulosin Hcl 0.4 Mg Capsule) 0.4 mg PO DAILY@1730 [facility] Throat Lozenges (Benzocaine/Menthol 1 Lozenge) 1 lozenge MUCOUS MEM Q2H PRN PRN PRN Reason: SORE THROAT Tramadol HCl (Tramadol 50 Mg Tablet) 50 mg PO BID [facility] Last Admin: 07/27/20 11:01 Dose: 50 mg Documented by: Home Medications: Medications to take at Discharge Esomeprazole Mag Trihydrate [Nexium] 40 mg PO DAILY PRN PRN 06/24/18 Latanoprost 0.005% [Xalatan Opthalmic] 1 drop EACH EYE QHS 06/24/18 Meclizine HCl [Antivert] 25 mg PO TID PRN PRN 06/24/18 Multivitamin/Iron/Folic Acid [Centrum Adults Tablet] 1 ea PO DAILY 07/26/20 Tramadol HCl [Ultram] 50 mg PO BID 07/26/20 Bisacodyl [Dulcolax] 10 mg RECTAL DAILY PRN PRN #30 suppos. 07/27/20 Polyethylene Glycol 3350 [Miralax] 17 gm PO DAILY #30 packet 07/27/20 Psyllium [Metamucil] 1 packet PO BID #30 packet 07/27/20 Senna/Docusate Sodium [Senokot-S] 2 tab PO BID PRN PRN tab 07/27/20 Tamsulosin HCl [Flomax] 0.4 mg PO DAILY@1730 #30 cap 07/27/20 Following Prescriptions Were Given to Patient: Bisacodyl [Dulcolax] 10 mg RECTAL DAILY PRN PRN #30 suppos. PRN Reason: severe constipation Transmission Status: Received by [facility] Tamsulosin HCl [Flomax] 0.4 mg PO DAILY@1730 #30 cap Transmission Status: Received by [facility] Psyllium [Metamucil] 1 packet PO BID #30 packet Transmission Status: Received by [id number] Polyethylene Glycol 3350 [Miralax] 17 gm PO DAILY #30 packet Transmission Status: [facility] Primary Care Physician: Karla Walsh MD [Primary Care Provider] - Medical Necessity - Tobacco Use Smoking Status: Never smoker Tobacco Use: Non-smoker Meaningful Use Info Meaningful Use Diagnoses (Choose all that apply): None applicable OBSV E&M: 17460 Observation care discharge
[2020-07-27 15:00] VITALS: BP 138/86; PULSE 86; RESP 18; TEMP 36.6; O2SAT 98
[2020-07-27] MEDS: Tamsulosin HCl 0.4 MG Capsule PO (16:30)
== END 2020-07-27 17:27 | disposition home or self-care (01) ==
LOC: ED 14:47 → MS3 16:58
PROVIDERS: Admitting Provider Family Medicine; Emergency Provider Emergency Medicine; PCP Internal Medicine; Visit Provider Internal Medicine
DX: K59.09 Other constipation (principal); E87.1 Hypo-osmolality and hyponatremia; E87.6 Hypokalemia; Z79.899 Other long term (current) drug therapy; N18.30 Chronic kidney disease, stage 3 unspecified; K21.9 Gastro-esophageal reflux disease without esophagitis; D64.9 Anemia, unspecified; G89.4 Chronic pain syndrome; H81.10 Benign paroxysmal vertigo, unspecified ear; K44.9 Diaphragmatic hernia without obstruction or gangrene
CPT/HCPCS: 36415; 74176; 80048; 80053; 81001; 82274; 82570; 82728; 83540; 83550; 83605; 83690; 83735; 83935; 84300; 84439; 84443; 85025; 87086; 96361; 96365; 96366; 96372; 99218; 99251; 99284; J7030; G0378; G0463

== ENCOUNTER → 2025-01-06 | Outpatient (CLI) | payer MEDICARE, SELFPAY ==
--- NOTE | 2025-01-06 17:38 | RAD_ITS ---
EXAM: XR Lumbosacral Spine, 2 or 3 Views CLINICAL INDICATION: BACK PAIN TECHNIQUE: Frontal and lateral views of the lumbar spine and sacrum. COMPARISON: No relevant prior studies available. FINDINGS: VERTEBRAE: S shaped scoliosis of the thoracolumbar spine. Moderate endplate degenerative changes and disc disease of L1-2 L5. Severe facet arthropathy of L3-L5. No acute fracture. Normal alignment. SACRUM/COCCYX: Unremarkable as visualized. No acute fracture. DISC SPACES: No acute findings. No significant narrowing. SOFT TISSUES: Unremarkable. VASCULATURE: Scattered calcified atherosclerotic disease of aorta. RAD/Lumbar Spine 2 or 3 Views IMPRESSION: Degenerative changes as above. Reading Location: [id number]
--- OUTSIDE RECORDS SUMMARY | 2025-01-06 22:10 | XMS RPT_ITS | CCD ---
Author Organization [facility] Care Team Providers Care Carpet Winder Name Role Phone Karla Najera MD Primary Care Provider [phone] Karla Najera MD Primary Care Provider [phone] Starr Lester PA-C Unavailable [phone] Older DIE TECHNICIAN.Rosey CHAPARRO Unavailable Mikki Harrell PA-C Unavailable MIKKI HARRELL Attending Unavailable KARLA NAJERA Primary Care Unavailable MIKKI HARRELL Referring Unavailable KARLA NAJERA Primary Care Unavailable ROSEY QUILES Attending Unavailable KARLA NAJERA Primary Care Unavailable Allergies Allergy Classification Reported Allergen(s) Allergy Type Date of Onset Reaction(s) Facility (7 sources) Acetaminophen; Translations: [ACETAMINOPHEN] Drug Allergy 0 GI Upset [facility] (7 sources) brimonidine / Timolol; Translations: [BRIMONIDINE-LYNDSAY LOL] Drug Allergy 8 Swelling [facility] (7 sources) levoFLOXacin; Translations: [LEVOFLOXACIN] Drug Allergy 5 GI Upset [facility] Work Phone: (7 sources) meloxicam; Translations: [MELOXICAM] Drug Allergy 0 [facility] Work Phone: (7 sources) Sulfonamides (Antibiotic); Translations: [SULFA (SULFONAMIDE ANTIBIOTICS)] Propensity to adverse reactions 5 Hives [facility] Work Phone: Medications Current Medications Medication Drug Class(es) Dates Sig (Normalized) Sig (Original) aluminum hydroxide 40 mg/ml / magnesium hydroxide 40 mg/ml / simethicone 4 mg/ml oral suspension (6 sources) Start: 11-04-2013 aluminum-magnesium hydroxide-simethicone 200-200-20 mg/5 mL suspension Take by mouth every 6 hours as needed. 0 11/04/2013 Active Comment on above: Take by mouth every 6 hours as needed. esomeprazole 40 mg delayed release oral capsule (6 sources) Proton Pump Inhibitor Start: 12-29-2019 take 1 capsule by mouth once daily as needed esomeprazole (NEXIUM) 40 mg capsule Indications: Gastroesophageal reflux disease without esophagitis Take 1 capsule by mouth once daily as needed. 90 capsule 3 12/29/2019 Active Comment on above: Take 1 capsule by mo [facility] once daily as needed. latanoprost 0.05 mg/ml ophthalmic solution (6 sources) Prostaglandin Analog Start: 02-18-2015 take 1 drop(s) into the eye(s) once daily at bedtime latanoprost (XALATAN) 0.005 % ophthalmic solution Indications: Glaucoma Use 1 Drop in both eyes daily at bedtime. TO AFFECTED EYE(S) 1 Bottle 3 02/18/2015 Active Start: 02-18-2015 take 1 drop(s) into the eye(s) once daily at bedtime latanoprost (XALATAN) 0.005 % ophthalmic solution Indications: Glaucoma Use 1 Drop in both eyes daily at bedtime. TO AFFECTED EYE(S) 1 Bottle 3 02/18/2015 Active Comment on above: Use 1 Drop in both e yes daily at bedtime. TO AFFECTED EYE(S) meclizine hydrochloride 25 mg oral tablet (6 sources) Antiemetic Start: 11-25-19 14 take 1 tablet by mouth every six hours as needed for dizziness meclizine 25 mg tab Indications: Annual physical exam , Lung nodule Take 1 tablet by mouth every 6 hours as needed. FOR DIZZINESS 30 tablet 6 11/24/2013 Active Comment on above: Take 1 tablet by jaxson every 6 hours as needed. FOR DIZZINESS MULTIVITAMIN ORAL TAB (6 sources) Start: 04-04-20 05 take 1 tablet by mouth once daily MULTIVITAMIN ORAL TAB Take one(1) tablet daily. 0 04/04/2005 Active Comment on above: Take one(1) tablet d aily. traMADol hydrochloride 50 mg oral tablet (6 sources) Opioid Agonist take 1 tablet by mouth every six hours as needed traMADol (ULTRAM) 50 mg tablet Take 50 mg by mouth every 6 hours as needed. Active Comment on above: Take 50 mg by mouth every 6 hours as needed. Completed/Discontinued Medications Medication Drug Class(es) Dates Sig (Normalized) Sig (Original) tamsulosin hydrochloride 0.4 mg oral capsule (1 source) alpha-Adrenergic Jennifer Start: 08-22-2021 take 1 capsule by mouth once daily at bedtime tamsulosin (FLOMAX) 0.4 mg Indications: Enlarged prostate Take 1 capsule by mouth daily at bedtime. 30 capsule 5 08/22/2021 Active Comment on above: Take 1 capsule by mo [facility] daily at bedtime. Problems Active Problems Problem Classification Problem Date Documented Date Episodic/Chronic Anxiety disorders (6 sources) Anxiety state; Translations: [Generalized anxiety disorder] Onset: 10-25-2005 05-01-2006 Chronic Diabetes mellitus without complication (1 source) Prediabetes; Translations: [Prediabetes] 06-04-2023 Episodic Disorders of lipid metabolism (17 sources) Hyperlipidemia; Translations: [Hyperlipidemia, unspecified] Onset: 06-03-2014 Chronic Diverticulosis and diverticulitis (6 sources) Diverticular disease; Translations: [Diverticulosis of intestine, part unspecified, without perforation or abscess without bleeding] Onset: 06-01-2010 06-01-2010 Chronic Esophageal disorders (6 sources) Gastroesophageal reflux disease; Translations: [Gastro-esophageal reflux disease without esophagitis] Onset: 10-25-2005 11-25-2013 Chronic Hyperplasia of prostate (1 source) Large prostate ; Translations: [Benign prostatic hyperplasia without lower urinary tract symptoms] 08-30-2024 Chronic Other screening for suspected conditions (not mental disorders or infectious disease) (9 sources) Raised prostate specific antigen; Translations: [Elevated prostate specific antigen [PSA]] Onset: 07-05-2024 05-01-2006 Episodic Other upper respiratory disease (6 sources) Allergic rhinitis; Translations: [Allergic rhinitis, unspecified] Onset: 04-24-2007 11-16-2007 Chronic Spondylosis; intervertebral disc disorders; other back problems (6 sources) Degeneration of intervertebral disc; Translations: [DDD (degenerative disc disease)] Onset: 08-07-2009 07-09-2021 Chronic Past or Other Problems Problem Classification Problem Date Documented Da te Episodic/Chronic Abdominal hernia (6 sources) Inguinal hernia; Translations: [Unilateral inguinal hernia, without obstruction or gangrene, not specified as recurrent] Onset: 05-28-2011 05-28-2011 Episodic Conditions associated with dizziness or vertigo (6 sources) Dizziness and giddiness; Translations: [Dizziness and giddiness] Onset: 10-25-2005 07-09-2021 Episodic Diabetes mellitus without complication (4 sources) Diabetes mellitus; Translations: [Type 2 diabetes mellitus without complications] Resolved: 02-18-2015 02-18-2015 Chronic Other lower respiratory disease (6 sources) Lung field abnormal; Translations: [Nonspecific abnormal findings on radiological and other examination of lung field] Onset: 10-30-2007 11-16-2007 Episodic Other skin disorders (6 sources) Finding of region of thorax; Translations: [Localized swelling, mass and lump, trunk] Onset: 05-30-2008 06-03-2014 Episodic Residual codes; unclassified (6 sources) Insomnia; Translations: [Insomnia, unspecified] Onset: 10-25-2005 02-18-2015 Episodic Viral infection (6 sources) Herpes zoster without complication; Translations: [Zoster without complications] Onset: 03-05-2016 03-05-2016 Episodic Results Test Name Value Interpretation Reference Range Facility [facility] 08-30-2024 CNOV Office Visit (INTMWS ) DERRICK OMALLEY ([id number]) 1940 M Date Time Provider Department 08/30/24 2:40 PM ROSEY QUILES INTMWS During your visit today, we recorded the following information about you: Pulse Respiration Blood pressure Weight 108/minute 16/minute 138/72 79.4 kg Rosey Quiles APRN.ONLINE FACILITATOR 08/30/2024 3:23 PM Signed CC: Patient presents with: Recheck: BP follow up HPI Derrick Omalley is a 83 year old male who presents today for routine follow up. HLD: Mr. Omalley denies headache, chest pain, palpitations, dyspnea, and peripheral edema. Currently not on any antihypertensive or cholesterol lowering medications. Does not tolerate statin medications. He does check BP's away from this office with average BP's in the 120s/70s range. Derrick works out regularly 7 times per week with walking on treadmill and does light weights. He watches his diet for sodium, low fat and low cholesterol most of the time. Last 3 Encounter BP Readings: Date: BP: 08/30/2024 138/72 01/13/2024 136/67[caryn bp average[ 07/09/2023 148/80 Enlarged prostate with elevated PSA: Asymptomatic and PSA level stable REVIEW OF SYSTEMS See HPI PAST MEDICAL HISTORY Diagnosis Date Arthritis see's Dr. 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 traMADol (ULTRAM) 50 mg tablet Take 50 mg by mouth every 6 hours as needed. latanoprost (XALATAN) 0.005 % ophthalmic solution Use 1 Drop in both eyes daily at bedtime. TO AFFECTED EYE(S) meclizine 25 mg tab Take 1 tablet by mouth every 6 hours as needed. FOR DIZZINESS aluminum-magnesium hydroxide-simethicone 200-200-20 mg/5 mL suspension Take by mouth every 6 hours as needed. MULTIVITAMIN ORAL TAB Take one(1) tablet daily. FAMILY HISTORY Problem Relation Age of Onset Breast Cancer Other Diabetes Mother Arthritis Father Prostate Cancer Father Social History Tobacco Use Smoking status: Never Smokeless tobacco: Never Substance Use Topics Alcohol use: No Drug use: No PHYSICAL EXAM BP 138/72 Pulse 108 Resp 16 Wt 79.4 kg (175 lb) BMI 27.41 kg/m? General Appearance: well appearing, in no acute distress, alert Eyes: conjunctiva pink and moist, no icterus, sclera white, non-injected Lungs: Lungs clear to auscultation. No wheezing, rhonchi, rales. Heart: RRR without murmur, gallop, or rubs. No ectopy Health maintenance reviewed with patient: Depression Screening Never done Advance Directive Discussion due on 07/14/2024 Influenza Vaccine(1) due on 01/10/2025 DTaP,Tdap,Td Vaccine(1 - Tdap) due on 08/30/2025 RSV Vaccine(1 - 1-dose 75+ series) due on 08/30/2025 Shingrix Vaccine(1 of 2) due on 08/30/2025 Covid-19 Vaccine(3 - season) due on 08/30/2025 Pneumococcal Vaccine: 50+(1 of 1 - PCV) due on 08/30/2025 Diabetes Screening due on 07/05/2027 DATA REVIEWED: Most recent labs ASSESSMENT/PLAN: 1. Hyperlipidemia with target LDL less than 130 - ICD9: 272.4, ICD10: E78.5 (primary diagnosis) - Worsening control - Counseled on healthy diet and regular exercise - Discussed need for and benefit of weight loss. BMI 27.41 kg/(m2) - does not tolerate cholesterol lowering medications so discussed diet in great detail Follow up in 6 months 2. Enlarged prostate - ICD9: 600.00, ICD10: N40.0 stable Prescription instructions reviewed with patient as applicable. Potential red flag symptoms discussed with the patient. Reviewed appropriate action plan to take if red flag symptoms occur. Patient agreeable to treatment plan. Rosey Quiles APRN.CNP Allergies As of Date: 08/30/2024 Noted Allergy Reaction COMBIGAN (BRIMONIDINE-TIMOLOL) 03/04/2018 7 - Swelling LEVAQUIN (LEVOFLOXACIN) 04/25/2005 8 - GI Upset MOBIC (MELOXICAM) 01/29/2010 Comments: Painful joints SULFA (SULFONAMIDE ANTIBIOTICS) 04/25/2005 4 - Hives TYLENOL (ACETAMINOPHEN) 05/17/2010 8 - GI Upset Date Reviewed: 08/30/2024 Reviewed by: Rosey Quiles APRN.ONLINE FACILITATOR - Fully Assessed Reason for Visit: Recheck [92] Cmt: BP follow up Primary Visit Diagnosis:Hyperlipidemia with target LDL less than 130 [E78.5] Other Visit Diagnosis:Enlarged prostate [N40.0] Order(s):ADVANCE CARE PLAN DISCUSSION [[id number]] O (more content not included)... Normal [facility] Nicole 08-03-2024 CNPN Telephone (FAMPWS) DERRICK OMALLEY ([id number]) 1940 M Date Time Provider Department 08/03/24 MIKKI HARRELL FAMWS During your visit today, we recorded the following information about you: Mikki Harrell PA-C 08/03/2024 10:44 AM Signed Please let patient know that his PSA was slightly higher than last year-can discuss further at follow up. His sodium was slightly low-increase salty foods, can recheck in a few weeks. Cholesterol was up slightly. Continue low fat, low cholesterol diet. I see where he is not on medication and had preferred not to take. Again, can discuss further at his follow up visit. Otherwise labs looked stable. Mikki Harrell PA-C 08/03/2024 Ibrahima Macias LPN 08/03/2024 12:22 PM Signed Lennie NOTIFIED OF SAME. Allergies As of Date: 08/03/2024 Noted Allergy Reaction COMBIGAN (BRIMONIDINE-TIMOLOL) 03/04/2018 7 - Swelling LEVAQUIN (LEVOFLOXACIN) 04/25/2005 8 - GI Upset MOBIC (MELOXICAM) 01/29/2010 Comments: Painful joints SULFA (SULFONAMIDE ANTIBIOTICS) 04/25/2005 4 - Hives TYLENOL (ACETAMINOPHEN) 05/17/2010 8 - GI Upset Date Reviewed: 01/13/2024 Reviewed by: Shannon Shah LPN - Fully Assessed Prescriptions as of 08/03/2024 - esomeprazole (NEXIUM) 40 mg capsule Take 1 capsule by mouth once daily as needed. - traMADol (ULTRAM) 50 mg tablet Take 50 mg by mouth every 6 hours as needed. - latanoprost (XALATAN) 0.005 % ophthalmic solution Use 1 Drop in both eyes daily at bedtime. TO AFFECTED EYE(S) - meclizine 25 mg tab Take 1 tablet by mouth every 6 hours as needed. FOR DIZZINESS - aluminum-magnesium hydroxide-simethicone 200-200-20 mg/5 mL suspension Take by mouth every 6 hours as needed. - MULTIVITAMIN ORAL TAB Take one(1) tablet daily. Meds Comments as of 11/24/2013: Problem List As Of Date 08/03/2024 Noted Resolved DIABETES MELLITUS TYPE II-UNCOMPL [E11.9] 02/18/2015 Other and unspecified hyperlipidemia [E78.5] ELEVATED PROSTATE SPECIFIC ANTIGEN [R97.20] Dizziness and giddiness [R42] 10/25/2005 ANXIETY STATE NOS [F41.1] 10/25/2005 Esophageal reflux [K21.9] 10/25/2005 INSOMNIA NOS [G47.00] 10/25/2005 ALLERGIC RHINITIS NOS [J30.9] 04/24/2007 ABNORMAL CXR [793.1] 10/30/2007 PULMONARY NODULES [R22.2] 05/30/2008 DDD (degenerative disc disease) [[id number]] 08/07/2009 Diverticulosis [K57.90] 06/01/2010 Inguinal hernia [K40.90] 05/28/2011 Hyperlipidemia with target LDL less than 130 [E*06/03/2014 Herpes zoster without complication [B02.9] 03/05/2016 Encounter Status:Closed by IBRAHIMA MACIAS on 08/03/24 [facility] Nicole 07-21-2024 SHANKARN Telephone (INTMWS) DERRICK OMALLEY ([id number]) 1940 M Date Time Provider Department 07/21/24 KARLA NAJERA During your visit today, we recorded the following information about you: Issac Malloy 07/21/2024 1:59 PM Signed Patients daughter Lennie was called for both hers and the patients appts to be rescheduled from the 07/21/24, which she was able to reschedule to 08/30/24 because they needed a evening appt, and his daughter would have to bring him around 5:00, the ended up working because she has that day off, but just double checking its ok if derrick can wait for that date, or if they can both be scheduled back to back with a different provider outside of the established care team for there follow ups. : Rosey Estrada APRN.ONLINE FACILITATOR 07/22/2024 3:14 PM Signed My apologies to the patients for having to leave early due to illness. If they have any concerns they should be seen earlier and a different provider is ok. As long as they have no concerns. February will be ok. Thank you Rosey Quiles APRN.ONLINE FACILITATOR Allergies As of Date: 07/21/2024 Noted Allergy Reaction COMBIGAN (BRIMONIDINE-TIMOLOL) 03/04/2018 7 - Swelling LEVAQUIN (LEVOFLOXACIN) 04/25/2005 8 - GI Upset MOBIC (MELOXICAM) 01/29/2010 Comments: Painful joints SULFA (SULFONAMIDE ANTIBIOTICS) 04/25/2005 4 - Hives TYLENOL (ACETAMINOPHEN) 05/17/2010 8 - GI Upset Date Reviewed: 01/13/2024 Reviewed by: Shannon Shah LPN - Fully Assessed Reason for Visit: Appointment [186] Cmt: Reschedules Prescriptions as of 07/26/2024 - esomeprazole (NEXIUM) 40 mg capsule Take 1 capsule by mouth once daily as needed. - traMADol (ULTRAM) 50 mg tablet Take 50 mg by mouth every 6 hours as needed. - latanoprost (XALATAN) 0.005 % ophthalmic solution Use 1 Drop in both eyes daily at bedtime. TO AFFECTED EYE(S) - meclizine 25 mg tab Take 1 tablet by mouth every 6 hours as needed. FOR DIZZINESS - aluminum-magnesium hydroxide-simethicone 200-200-20 mg/5 mL suspension Take by mouth every 6 hours as needed. - MULTIVITAMIN ORAL TAB Take one(1) tablet daily. Meds Comments as of 11/24/2013: Problem List As Of Date 07/21/2024 Noted Resolved DIABETES MELLITUS TYPE II-UNCOMPL [E11.9] 02/18/2015 Other and unspecified hyperlipidemia [E78.5] ELEVATED PROSTATE SPECIFIC ANTIGEN [R97.20] Dizziness and giddiness [R42] 10/25/2005 ANXIETY STATE NOS [F41.1] 10/25/2005 Esophageal reflux [K21.9] 10/25/2005 INSOMNIA NOS [G47.00] 10/25/2005 ALLERGIC RHINITIS NOS [J30.9] 04/24/2007 ABNORMAL CXR [793.1] 10/30/2007 PULMONARY NODULES [R22.2] 05/30/2008 DDD (degenerative disc disease) [LYH8551] 08/07/2009 Diverticulosis [K57.90] 06/01/2010 Inguinal hernia [K40.90] 05/28/2011 Hyperlipidemia with target LDL less than 130 [E*06/03/2014 Herpes zoster without complication [B02.9] 03/05/2016 Encounter Status:Closed by ASHLEY MONTEJO on 07/22/24 Normal [facility] CBC panel Auto (Bld)on 07-05 Erythrocyte distribution width (RBC) [Ratio] 13.2 % Normal 11.5-15.0 [facility] Comment on above: Order Comment: Speci men Type: BLOOD SPECIMEN Ordering Facility: [facility] Address: [address] [place] [address] Performed By: #### 5 8410-2 #### [facility] CLIA [id number] [address] [place], [place] [address] [address] [place] Hematocrit (Bld) [Volume fraction] 40.7 % Normal 39.0-51.0 [facility] Comment on above: Order Comment: Speci men Type: BLOOD SPECIMEN Ordering Facility: [facility] Address: [address] [place] [address] Performed By: #### 5 8410-2 #### [facility] CLIA [id number] [address] [place] [address] [place] Hemoglobin (Bld) [Mass/Vol] 13.4 g/dL Normal 13.0-17.0 [facility] Comment on above: Order Comment: Speci men Type: BLOOD SPECIMEN Ordering Facility: [facility] Address: [address] [place] [address] Performed By: #### 5 8410-2 #### [facility] CLIA [id number] [address] [place] [address] [place] MCH (RBC) [Entitic mass] 30.5 pg Normal 26.0-34.0 [facility] Comment on above: Order Comment: Speci men Type: BLOOD SPECIMEN Ordering Facility: [facility] Address: [address] [place] [address] Performed By: #### 5 8410-2 #### [facility] CLIA [id number] [address] [place] [address] [place] MCHC (RBC) [Mass/Vol] 32.9 g/dL Normal 30.5-36.0 [facility] Comment on above: Order Comment: Speci men Type: BLOOD SPECIMEN Ordering Facility: [facility] Address: [address] [place] [address] Performed By: #### 5 8410-2 #### [facility] CLIA [id number] [address] [place] [address] [place] MCV (RBC) [Entitic vol] 92.5 fL Normal 80.0-100.0 [facility] Comment on above: Order Comment: Speci men Type: BLOOD SPECIMEN Ordering Facility: [facility] Address: [address] [place] [address] Performed By: #### 5 8410-2 #### [facility] CLIA [id number] [address] [place] [address] [place] Nucleated RBC (Bld) [#/Vol] 10*3/uL Normal <0.01 [facility] Comment on above: Order Comment: Speci men Type: BLOOD SPECIMEN Ordering Facility: [facility] Address: [address] [place] [address] Performed By: #### 5 8410-2 #### [facility] CLIA [id number] [address] [place] [address] [place] Platelet mean volume (Bld) [Entitic vol] 10.3 fL Normal 9.0-12.7 [facility] Comment on above: Order Comment: Speci men Type: BLOOD SPECIMEN Ordering Facility: [facility] Address: [address] [place] [address] Performed By: #### 5 8410-2 #### [facility] CLIA [id number] [address] [place] [address] [place] Platelets (Bld) [#/Vol] 205 10*3/uL Normal 150-400 [facility] Comment on above: Order Comment: Speci men Type: BLOOD SPECIMEN Ordering Facility: [facility] Address: [address] [place] [address] Performed By: #### 5 8410-2 #### [facility] CLIA [id number] [address] [place] [address] [place] RBC (Bld) [#/Vol] 4.40 10*6/uL Normal 4.20-6.00 [facility] Comment on above: Order Comment: Speci men Type: BLOOD SPECIMEN Ordering Facility: [facility] Address: [address] [place] [address] Performed By: #### 5 8410-2 #### [facility] CLIA [id number] [address] [place] [address] [place] WBC (Bld) [#/Vol] 8.02 10*3/uL Normal 3.70-11.00 [facility] Comment on above: Order Comment: Speci men Type: BLOOD SPECIMEN Ordering Facility: [facility] Address: [address] [place] [address] Performed By: #### 5 8410-2 #### [facility] CLIA [id number] [address] [place] [address] [place] Comprehensive metabolic 2000 panelon 07-05-2024 Albumin [Mass/Vol] 4.3 g/dL Normal 3.9-4.9 [facility] Comment on above: Order Comment: Speci men Type: BLOOD SPECIMEN Ordering Facility: [facility] Address: [address] [place] [address] Performed By: #### 2 4323-8, 02198-5 #### [facility] CLIA [id number] [address] [place] [address] [place] ALP [Catalytic activity/Vol] 100 U/L Normal 38-113 [facility] Comment on above: Order Comment: Speci men Type: BLOOD SPECIMEN Ordering Facility: [facility] Address: [address] [place] [address] Performed By: #### 2 4323-8, 60098-0 #### [facility] CLIA [id number] [address] [place] [address] [place] ALT [Catalytic activity/Vol] 13 U/L Normal 10-54 [facility] Comment on above: Order Comment: Speci men Type: BLOOD SPECIMEN Ordering Facility: [facility] Address: [address] [place] [address] Performed By: #### 2 4323-8, 39139-8 #### [facility] CLIA [id number] [address] [place] [address] [place] Anion gap [Moles/Vol] 12 mmol/L Normal 8-15 [facility] Comment on above: Order Comment: Speci men Type: BLOOD SPECIMEN Ordering Facility: [facility] Address: [address] [place] [address] Performed By: #### 2 4323-8, 48031-2 #### [facility] CLIA [id number] [address] [place] [address] [place] AST [Catalytic activity/Vol] 19 U/L Normal 14-40 [facility] Comment on above: Order Comment: Speci men Type: BLOOD SPECIMEN Ordering Facility: [facility] Address: [address] [place] [address] Performed By: #### 2 4323-8, 44263-3 #### [facility] CLIA [id number] [address] [place] [address] [place] Bilirubin [Mass/Vol] 0.4 mg/dL Normal 0.2-1.3 [facility] Comment on above: Order Comment: Speci men Type: BLOOD SPECIMEN Ordering Facility: [facility] Address: [address] [place] [address] Performed By: #### 2 4323-8, 00485-0 #### [facility] CLIA [id number] [address] [place] [address] [place] Calcium [Mass/Vol] 9.5 mg/dL Normal 8.5-10.2 [facility] Comment on above: Order Comment: Speci men Type: BLOOD SPECIMEN Ordering Facility: [facility] Address: [address] [place] [address] Performed By: #### 2 4323-8, 77508-0 #### [facility] CLIA [id number] [address] [place] [address] [place] [place] Chloride [Moles/Vol] 96 mmol/L Low 98-107 [facility] Comment on above: Order Comment: Speci men Type: BLOOD SPECIMEN Ordering Facility: [facility] Address: [address] [place] [address] Performed By: #### 2 4323-8, 78784-1 #### [facility] CLIA [id number] [address] [place] [address] [place] CO2 [Moles/Vol] 25 mmol/L Normal 22-30 [facility] Comment on above: Order Comment: Speci men Type: BLOOD SPECIMEN Ordering Facility: [facility] Address: [address] [place] [address] Performed By: #### 2 4323-8, 15773-9 #### [facility] CLIA [id number] [address] [place] [address] [place] Creatinine [Mass/Vol] 0.85 mg/dL Normal 0.73-1.22 [facility] Comment on above: Order Comment: Speci men Type: BLOOD SPECIMEN Ordering Facility: [facility] Address: [address] [place] [address] Performed By: #### 2 4323-8, 22733-2 #### [facility] CLIA [id number] [address] [place] [address] [place] Creatinine and Glomerular filtration rate.predicted panel (S/P/Bld) 86 mL/min/1.73m??? Normal >=60 [facility] Comment on above: Order Comment: Speci men Type: BLOOD SPECIMEN Ordering Facility: [facility] Address: [address] [place] [address] Result Comment: Tamara mated Glomerular Filtration Rate (eGFR) is calculated using the 2020 CKD-EPI creatinine equation. This equation utilizes serum creatinine, sex, and age as parameters. The creatinine assay has traceable calibration to isotope dilution-mass spectrometry. Refer to KDIGO guidelines for clinical interpretation. In patients with unstable renal function, e.g. those with acute kidney injury, the eGFR may not accurately reflect actual GFR. Performed By: #### 2 4323-8, 75170-7 #### [facility] CLIA [id number] [address] [place] [address] [place] Glucose [Mass/Vol] 122 mg/dL High 74-99 [facility] Comment on above: Order Comment: Machellei men Type: BLOOD SPECIMEN Ordering Facility: [facility] Address: [address] [place] [address] Result Comment: The [place] Diabetes Association (ADA) provides guidance for cutoff values for fasting glucose and random glucose. The ADA defines fasting as no caloric intake for at least 8 hours. Fasting plasma glucose results between 100 to 125 [...] Standards of Medical Care in Diabetes 2016, [place] Diabetes Association. Diabetes Care. 2016.39(Suppl 1). Performed By: #### 2 4323-8, 89088-6 #### [facility] CLIA [id number] [address] [place] [address] [place] Potassium [Moles/Vol] 4.6 mmol/L Normal 3.7-5.1 [facility] Comment on above: Order Comment: Desmond roman Type: BLOOD SPECIMEN Ordering Facility: [facility] Address: [address] [place] [address] Performed By: #### 2 4323-8, 44477-1 #### [facility] CLIA [id number] [address] [place] [address] [place] Protein [Mass/Vol] 7.0 g/dL Normal 6.3-8.0 [facility] Comment on above: Order Comment: Desmond roman Type: BLOOD SPECIMEN Ordering Facility: [facility] Address: [address] [place] [address] Performed By: #### 2 4323-8, 81378-8 #### [facility] CLIA [id number] [address] [place] [address] [place] Sodium [Moles/Vol] 133 mmol/L Low 136-144 [facility] Comment on above: Order Comment: Desmond men Type: BLOOD SPECIMEN Ordering Facility: [facility] Address: [address] [place] [address] Performed By: #### 2 4323-8, 89664-9 #### [facility] CLIA [id number] [address] [place] [address] [place] Urea nitrogen [Mass/Vol] 9 mg/dL Normal 9-24 [facility] Comment on above: Order Comment: Desmond men Type: BLOOD SPECIMEN Ordering Facility: [facility] Address: [address] [place] [address] Performed By: #### 2 4323-8, 76273-5 #### [facility] CLIA [id number] [address] [place] [address] [place] HbA1c (Bld)on 07-05-2024 Average glucose Estimated from glycated hemoglobin (Bld) [Mass/Vol] 111 mg/dL Normal [facility] Comment on above: Order Comment: Desmond roman Type: BLOOD SPECIMEN Ordering Facility: [facility] Address: [address] [place] [address] Result Comment: eAG: (Estimated average glucose) is a calculated value from HgbA1c and is door to door sales representative of the average blood glucose level in the last 2-3 month period. Performed By: #### 5 5454-3 #### [facility] CLIA [id number] [address] [place] [address] [place] HbA1c (Bld) [Mass fraction] 5.5 % Normal 4.3-5.6 [facility] Comment on above: Order Comment: Desmond roman Type: BLOOD SPECIMEN Ordering Facility: [facility] Address: [address] [place] [address] Result Comment: [place] Diabetes Association guidelines indicate that patients with HgbA1c in the range 5.7-6.4% are at increased risk for development of diabetes, and intervention by lifestyle modification may be beneficial. HgbA1c greater or equal to 6.5% is considered diagnostic of diabetes. Performed By: #### 5 5454-3 #### [facility] CLIA [id number] [address] [place] [address] [place] Lipid 1996 panelon 4 Cholesterol [Mass/Vol] 220 mg/dL High <200 [facility] Comment on above: Order Comment: Machellei men Type: BLOOD SPECIMEN Ordering Facility: [facility] Address: [address] [place] [address] Result Comment: <200 mg/dL, Desirable 200-239 mg/dL, Borderline high >239 mg/dL, High Performed By: #### 2 4323-8, 03148-2 #### [facility] CLIA [id number] [address] [place] [address] [place] Cholesterol in HDL [Mass/Vol] 46 mg/dL Normal >39 [facility] Comment on above: Order Comment: Desmond men Type: BLOOD SPECIMEN Ordering Facility: [facility] Address: [address] [place] [address] Result Comment: 40-5 9 mg/dL, Acceptable >59 mg/dL, High: Negative risk factor for coronary heart disease <40 mg/dL, Low: Positive risk factor for coronary heart disease Performed By: #### 2 4323-8, 46907-1 #### [facility] CLIA [id number] [address] [place] [address] [place] Cholesterol in LDL [Mass/Vol] 150 mg/dL High <100 [facility] Comment on above: Order Comment: Machellei men Type: BLOOD SPECIMEN Ordering Facility: [facility] Address: [address] [place] [address] Result Comment: <100 mg/dL, Optimal 100-129 mg/dL, Near optimal/above optimal 130-159 mg/dL, Borderline high 160-189 mg/dL, High >189 mg/dL, Very high Secondary prevention optimal LDL Cholesterol levels are recommended to be < 70 mg/dL Performed By: #### 2 4323-8, 83564-6 #### [facility] CLIA [id number] [address] [place] [address] [place] Cholesterol in LDL/Cholesterol in HDL [Mass ratio] 3.26 {ratio} High <2.54 [facility] Comment on above: Order Comment: Speci men Type: BLOOD SPECIMEN Ordering Facility: [facility] Address: [address] [place] [address] Result Comment: Gerson garcia: 1. National Cholesterol Education Program ATP III Guideline At-A-Glance Quick Desk Reference: National Heart, Lung, and Blood [place]. National Institutes of Health. 2001: NIH Publication No. 01-3305. 2. An International Atherosclerosis Society position paper: global recommendations for the management of dyslipidemia: executive summary, Atherosclerosis. 2014: 232(2):410-413. Performed By: #### 2 4323-8, 45762-9 #### [facility] CLIA [id number] [address] [place] [address] [place] Cholesterol in VLDL [Mass/Vol] 24 mg/dL Normal <30 [facility] Comment on above: Order Comment: Desmond roman Type: BLOOD SPECIMEN Ordering Facility: [facility] Address: [address] [place] [address] Performed By: #### 2 4323-8, 66884-4 #### [facility] CLIA [id number] [address] [place] [address] [place] Cholesterol non HDL [Mass/Vol] 174 mg/dL High <130 [facility] Comment on above: Order Comment: Desmond roman Type: BLOOD SPECIMEN Ordering Facility: [facility] Address: [address] [place] [address] Result Comment: <130 mg/dL, Optimal 130-159 mg/dL, Near optimal/above optimal 160-189 mg/dL, Borderline high 190-219 mg/dL, High >219 mg/dL, Very high Secondary prevention optimal non HDL Cholesterol levels are recommended to be <100 mg/dL Performed By: #### 2 4323-8, 43916-3 #### [facility] CLIA [id number] [address] [place] [address] [place] Cholesterol.total /Cholesterol in HDL [Mass ratio] 4.78 {ratio} Normal <5.10 [facility] Comment on above: Order Comment: Desmond roman Type: BLOOD SPECIMEN Ordering Facility: [facility] Address: [address] [place] [address] Performed By: #### 2 4323-8, 18251-2 #### [facility] CLIA [id number] [address] [place] [address] [place] FASTING TIME 12 hrs Normal [facility] Comment on above: Order Comment: Speci men Type: BLOOD SPECIMEN Ordering Facility: [facility] Address: [address] [place] [address] Performed By: #### 2 4323-8, 91765-2 #### [facility] CLIA [id number] [address] [place] [address] [place] Triglyceride [Mass/Vol] 120 mg/dL Normal <150 [facility] Comment on above: Order Comment: Speci men Type: BLOOD SPECIMEN Ordering Facility: [facility] Address: [address] [place] [address] Result Comment: <150 mg/dL, Normal 150-199 mg/dL, Borderline high 200-499 mg/dL, High >499 mg/dL, Very high Performed By: #### 2 4323-8, 70860-5 #### [facility] CLIA [id number] [address] [place] [address] [place] PSA/PROSTATE SPECIFIC ANTIGE N SCREENINGon 07-05-2024 Prostate specific Ag [Mass/Vol] 3.50 ng/mL High <2.60 [facility] Comment on above: Order Comment: Speci men Type: BLOOD SPECIMEN Ordering Facility: [facility] Address: [address] [place] [address] Result Comment: Tota l PSA test methodology used is the Electrochemiluminescence Immunoassay by [employer]. Total PSA values by differing methodologies cannot be interchanged. For an individual patient, the significance of a PSA level should be interpreted in a broad clinical context, including age, race, family history, digital rectal exam, prostate size, results of prior testing (prostate biopsy, free PSA, PCA3), and use of 5-alpha reductase inhibitors. Considering the high incidence of asymptomatic cancer in the general population that may not pose an ultimate risk to a patient, the decision to recommend urological evaluation or prostate biopsy should be individualized after consideration of all these factors. REFERENCE: Florence Velásquez M.D., M.P.H., Rigo Brown M.D., Ph.D., Nael Stephens M.D., Mouna Carmona, M.P.H., Brenda Street Sc.D. Effect of Verification Bias on Screening for Prostate Cancer by Measurement of Prostatic Specific Antigen. N Engl J Med 2003,349:335-42. Performed By: #### P SAS1 #### [facility] CLIA [id number] [address] [place] [address] OF [facility] CNOVon 01-13-2024 CNOV Office Visit (FAMPWS ) DERRICK OMALLEY ([id number]) 1940 M Date Time Provider Department 01/13/24 11:00 AM MIKKI HARRELL During your visit today, we recorded the following information about you: Pulse Respiration Blood pressure Weight 98/minute 12/minute 136/67 77.1 kg Height 1.702 m Shannon Shah LPN 01/13/2024 10:57 AM Signed Home BP monitor reading in office: left arm: 166/77 right arm: 153/80 Mikki Harrell PA-C 01/13/2024 2:12 PM Signed 01/13/2024 Patient presents with: 6 Month Exam: blood pressure check SUBJECTIVE: This is a 83 year old that is here today for follow up BP. Patient is not on medication at this time. Reports home BP cuff runs in the 120's/80s. Brought BP cuff today. Denies chest pain, SOB, leg swelling, vision changes, headaches. Derrick Omalley is a 83 year old male who presents in follow up of DM, HTN and Hyperlipidemia. DIABETES MELLITUS: Mr. Omalley was last seen 6 months ago. Since our last visit he denies excessive thirst or increased frequency of urination, chest pain or dyspnea , numbness, tingling or pain in extremities, new or unusual visual symptoms, low sugar/hypoglycemic reactions, weight loss/gain, lightheadedness/dizziness, bowel changes/loose stools, and. Follows a diabetic diet some of the time. Controlled with diet. He reports checking his glucose on a infrequent to not at all basis schedule Patient's last HgA1C was Hemoglobin A1C (%) Date Value 06/21/2023 5.6 02/03/2021 5.7 12/17/2019 5.7 HTN: Mr. Omalley indicates that he is feeling well and denies any symptoms referable to elevated blood pressure. Specifically denies headache, chest pain, palpitations, dyspnea, and peripheral edema. He does check BP's away from this office with average BP's in the 120/80s range. Brings home cuff today. Our office reading is higher compared to home cuff. Plans to get a new cuff. Derrick likes to exercise by walking on treadmill. He watches his diet for sodium, low fat and low cholesterol most of the time. Last 3 Encounter BP Readings: Date: BP: 01/13/2024 138/68 07/09/2023 148/80 01/08/2023 130/64 Hyperlipidemia. Mr. Omalley reports doing well . Controls with diet. Did not tolerate statins previously with myalgias. His most recent lipid panels are: Cholesterol, Total (mg/dL) Date Value 06/21/2023 199 02/16/2022 217 02/03/2021 226 12/17/2019 206 HDL Cholesterol (mg/dL) Date Value 06/21/2023 45 02/16/2022 44 02/03/2021 34 12/17/2019 47 LDL Cholesterol (mg/dL) Date Value 06/21/2023 135 02/16/2022 147 02/03/2021 158 12/17/2019 144 Triglyceride (mg/dL) Date Value 06/21/2023 94 02/16/2022 131 02/03/2021 169 12/17/2019 77 Past Medical, Surgical, Family and Social Histories reviewed and updated today in the History tab of [facility]. Current Medications and allergies reviewed. PAST MEDICAL HISTORY Diagnosis Date Arthritis see's Dr. Quintanilla for injections Elevated prostate specific antigen (PSA) Esophageal reflux Other and unspecified hyperlipidemia Type II or unspecified type diabetes mellitus without mention of complication, not stated as uncontrolled Vertigo Current Outpatient Medications Medication Sig esomeprazole (NEXIUM) 40 mg capsule Take 1 capsule by mouth once daily as needed. traMADol (ULTRAM) 50 mg tablet Take 50 mg by mouth every 6 hours as needed. latanoprost (XALATAN) 0.005 % ophthalmic solution Use 1 Drop in both eyes daily at bedtime. TO AFFECTED EYE(S) meclizine 25 mg tab Take 1 tablet by mouth every 6 hours as needed. FOR DIZZINESS aluminum-magnesium hydroxide-simethicone 200-200-20 mg/5 mL suspension Take by mouth every 6 hours as needed. MULTIVITAMIN ORAL TAB Take one(1) tablet daily. No current facility-administered medications for this visit. PHYSICAL EXAM: BP 138/68 (BP Site: Right Arm, BP Position: Sitting, BP Cuff Size: Large Adult) Pulse 104 Resp 12 Ht 170.2 cm (5' 7) Wt 77.1 kg (170 lb) SpO2 97% BMI 26.63 kg/m? BMI 26.63 kg/(m2) General appearance: Alert, cooperative, pleasant, in no acute distress Head: Normocephalic, atraumatic Eyes: conjunctiva/corneas normal, PERRL Oropharynx: moist without lesions, teeth in good repair Neck: supple and no JVD Heart: regular rate and rhythm, without murmur Lungs: clear to auscultation, without rales or wheeze, good air exchange Assessment/Plan 1. Diabetes Mellitus - Control undetermined, due for labs in 6 months, ordered 2. Hypertension - Controlled , will monitor with new BP cuff, will stop in office to verify. Advise to contact office if >140/90. - Recommend home blood pressure monitoring, to bring results to next visit - Encouraged sodium restriction, DASH or Mediterranean diet - Recommend regular aerobic exercise 3. Hyperlipidemia - uncontrolled, advise continued lifestyle modification (more content not included)... Normal [facility] Vital Signs Date Time Vital Sign Value Performing Clinician Facility 08-30-2024 14:54-0500 Diastolic blood pressure 72 mm[Hg] Rosey Quiles APRN.SHANKAR Work Phone: [facility] 08-30-2024 14:54-0500 Systolic blood pressure 138 mm[Hg] Rosey Older DIE TECHNICIAN.ONLINE FACILITATOR Work Phone: [facility] 08-30-2024 14:23-0500 Body mass index (BMI) [Ratio] 27.41 kg/m2 Rosey Older DIE TECHNICIAN.ONLINE FACILITATOR Work Phone: [facility] 08-30-2024 14:23-0500 Body weight 79.38 kg Rosey Older DIE TECHNICIAN.ONLINE FACILITATOR Work Phone: [facility] 08-30-2024 14:23-0500 Heart rate 108 /min Rosey Older DIE TECHNICIAN.ONLINE FACILITATOR Work Phone: [facility] 08-30-2024 14:23-0500 Respiratory rate 16 /min Rosey Older DIE TECHNICIAN.ONLINE FACILITATOR Work Phone: [facility] 01-13-2024 11:21-0400 Diastolic blood pressure 67 mm[Hg] Mikki Bogner PA-C Work Phone: [facility] Comment on above: caryn bp average 01-13-2024 11:21-0400 Systolic blood pressure 136 mm[Hg] Mikki Bogner PA-C Work Phone: [facility] Comment on above: caryn bp average 01-13-2024 11:10-0400 Heart rate 98 /min Mikki Bogner PA-C Work Phone: [facility] 01-13-2024 10:50-0400 Body height 170.2 cm Mikki Bogner PA-C Work Phone: [facility] 01-13-2024 10:50-0400 Body mass index (BMI) [Ratio] 26.63 kg/m2 Mikki Bogner PA-C Work Phone: [facility] 01-13-2024 10:50-0400 Body weight 77.11 kg Mikki Bogner PA-C Work Phone: [facility] 01-13-2024 10:50-0400 Respiratory rate 12 /min Mikki Harrell PA-C Work Phone: [facility] 01-13-2024 10:50-0400 SaO2% (BldA) [Mass fraction] 97 % Mikki Harrell PA-C Work Phone: [facility] 04-24-2022 18:26-0400 Body height 170.2 cm Karla Najera MD Work Phone: [facility] 04-24-2022 18:26-0400 Body temperature 98.91 [degF] Karla Najera MD Work Phone: [facility] 04-24-2022 18:26-0400 Body weight 74.84 kg Karla Najera MD Work Phone: [facility] 04-24-2022 18:26-0400 Diastolic blood pressure 60 mm[Hg] Karla Najera MD Work Phone: [facility] 04-24-2022 18:26-0400 Heart rate 117 /min Karla Najera MD Work Phone: [facility] 04-24-2022 18:26-0400 Respiratory rate 12 /min Karla Najera MD Work Phone: [facility] 04-24-2022 18:26-0400 SaO2% (BldA) [Mass fraction] 95 % Karla Najera MD Work Phone: [facility] 04-24-2022 18:26-0400 Systolic blood pressure 132 mm[Hg] Karla Najera MD Work Phone: [facility] Encounters Encounter Date Encounter Type Care Provider Facility Start: 08-30-2024 End: 08-30-2024 ambulatory ROSEY QUILES Facility:[facility] Start: 08-30-2024 End: 08-30-2024 Patient encounter procedure Rosey Quiles APRN.CNP Work Phone: [facility] [place] Comment on above: Hyperlipidemia with target LDL less than 130 (Primary Dx); Enlarged prostate Start: 08-03-2024 End: 08-03-2024 Telephone encounter Mikki Harrell PA-C Work Phone: [facility] [place] Start: 07-21-2024 End: 07-22-2024 Telephone encounter Karla Najera MD Work Phone: [facility] [place] Comment on above: Appointment (Resched ules) Start: 07-05-2024 End: 07-05-2024 [facility] Start: 01-13-2024 End: 01-13-2024 ambulatory [facility] Facility:[facility] Start: 01-13-2024 End: 01-13-2024 Office outpatient new 45 minutes Mikki Harrell PA-C Work Phone: [facility] [place] Comment on above: Hyperlipidemia with target LDL less than 130 (Primary Dx); Elevated PSA Start: 06-04-2023 Telephone encounter Karla cee MD Work Phone: [facility] [place] Comment on above: Orders Start: 04-24-2022 End: 04-24-2022 Patient encounter procedure Karla Najera MD Work Phone: [facility] [place] Comment on above: Medicare annual well ness visit, subsequent (Primary Dx); Hyperlipidemia with target LDL less than 130 Plan of Treatment Date Care Activity Detail Author Start: 07-05-2027 Diabetes Screening Diabetes Screenin g [facility] Start: 06-21-2026 Diabetes Screening Diabetes Screenin g [facility] Start: 08-30-2025 Covid-19 Vaccine ( season) Covid-19 Vaccine ( season) [facility] Comment on above: Postponed from 03/14 (Declined at this time) Start: 08-30-2025 Pneumococcal Vaccine : 50+ (1 of 1 - PCV) Pneumococcal Vaccine: 50+ (1 of 1 - PCV) [facility] Comment on above: Postponed from 09/08 (Declined at this time) Start: 08-30-2025 RSV Vaccine (1 - 1-d ose 75+ series) RSV Vaccine (1 - 1-dose 75+ series) [facility] Comment on above: Postponed from 09/08 (Declined at this time) Start: 08-30-2025 Shingrix Vaccine (1 of 2) Shingrix Vaccine (1 of 2) [facility] Comment on above: Postponed from 09/08 (Declined at this time) Start: 08-30-2025 Urine microalbumin profile DTaP,Tdap,Td Vaccine (1 - Tdap) [facility] Comment on above: Postponed from 09/08 (Declined at this time) Start: 03-02-2025 End: 03-02-2025 Patient encounter procedure 03/02/2025 5:20 PM EDT Office Visit [facility] [place] [address] [place] [address] Rosey Quiles APRN.ONLINE FACILITATOR [address] [place] [address] 6 month follow up [facility] Comment on above: 6 month follow up Start: 02-16-2025 DIABETES SCREEN DIABETES SCREEN [facility] Start: 02-16-2025 Diabetes Screening Diabetes Screenin g [facility] Start: 01-10-2025 Influenza vaccination Influenza Vacc ine (#1) [facility] Comment on above: Postponed from 03/14 (Declined at this time) Start: 08-30-2024 End: 08-30-2024 Patient encounter procedure 08/30/2024 2:40 PM EST Office Visit [facility] [place] [address] [place] [address] Rosey Quiles APRN.ONLINE FACILITATOR [address] [place] [address] follow up-HTN [facility] Comment on above: follow up-HTN Start: 07-21-2024 End: 07-21-2024 Patient encounter procedure 07/21/2024 5:00 PM EST Office Visit [facility] [place] [address] [place] [address] Rosey Quiles APRN.ONLINE FACILITATOR [address] [place] [address] follow up-HTN [facility] Comment on above: follow up-HTN Start: 07-15-2024 End: 10-14-2024 CBC panel - Blood by Automated count COMPLETE BLOOD COUNT Lab Routine Hyperlipidemia with target LDL less than 130 Expected: 07/15/2024, Expires: 10/14/2024 [facility] Comment on above: Expected: 07/15/2024 , Expires: 10/14/2024 Start: 07-15-2024 End: 10-14-2024 Comprehensive metabolic 2000 panel - Serum or Plasma COMPREHENSIVE METABOLIC PANEL Lab Routine Hyperlipidemia with target LDL less than 130 Expected: 07/15/2024, Expires: 10/14/2024 [facility] Comment on above: Expected: 07/15/2024 , Expires: 10/14/2024 Start: 07-15-2024 End: 10-14-2024 Hemoglobin A1c in Blood HEMOGLOBIN A1C Lab Routine Hyperlipidemia with target LDL less than 130 Expected: 07/15/2024, Expires: 10/14/2024 [facility] Work Phone: Comment on above: Expected: 07/15/2024 , Expires: 10/14/2024 Start: 07-15-2024 End: 10-14-2024 Lipid 1996 panel - Serum or Plasma LIPID PANEL BASIC Lab Routine Hyperlipidemia with target LDL less than 130 Expected: 07/15/2024, Expires: 10/14/2024 [facility] Comment on above: Expected: 07/15/2024 , Expires: 10/14/2024 Start: 07-15-2024 End: 10-14-2024 PSA/PROSTATE SPECIFIC ANTIGEN SCREENING PSA/PROSTATE SPECIFIC ANTIGEN SCREENING Lab Routine Elevated PSA Expected: 07/15/2024, Expires: 10/14/2024 [facility] Comment on above: Expected: 07/15/2024 , Expires: 10/14/2024 Start: 07-14-2024 Advance Directive Discussion Advance Directive Discussion [facility] Start: 07-09-2024 Covid-19 Vaccine () Covid-19 Vaccine () [facility] Comment on above: Postponed from 03/14 (Declined at this time) Start: 07-09-2024 RSV Vaccine (1 - 1-d ose 60+ series) RSV Vaccine (1 - 1-dose 60+ series) [facility] Comment on above: Postponed from 09/08 (Declined at this time) Start: 03-14-2024 Covid-19 Vaccine ( season) Covid-19 Vaccine ( season) [facility] Start: 03-14-2024 Influenza vaccination Influenza Vacc ine (#1) [facility] Start: 01-09-2024 Pneumococcal Vaccine : 65+ (1 - PCV) Pneumococcal Vaccine: 65+ (1 - PCV) [facility] Comment on above: Postponed from 09/08 (Declined at this time) Start: 01-09-2024 Shingrix Vaccine (1 of 2) Shingrix Vaccine (1 of 2) [facility] Comment on above: Postponed from 09/08 (Declined at this time) Start: 01-09-2024 Urine microalbumin profile DTaP,Tdap,Td Vaccine (1 - Tdap) [facility] Comment on above: Postponed from 09/08 (Declined at this time) Start: 07-14-2023 Advance Directive Discussion Advance Directive Discussion [facility] Start: 07-14-2023 Behavioral Health Screening Behavioral Health Screening [facility] Start: 06-04-2023 End: 09-03-2023 CBC panel - Blood by Automated count CBC Lab Routine Prediabetes Elevated prostate specific antigen (PSA) Expected: 06/04/2023, Expires: 09/03/2023 [facility] Work Phone: Comment on above: Expected: 06/04/2023 , Expires: 09/03/2023 Start: 06-04-2023 End: 09-03-2023 Comprehensive metabolic 2000 panel - Serum or Plasma COMP METABOLIC PANEL Lab Routine Hyperlipidemia with target LDL less than 130 Prediabetes Elevated prostate specific antigen (PSA) Expected: 06/04/2023, Expires: 09/03/2023 [facility] Work Phone: Comment on above: Expected: 06/04/2023 , Expires: 09/03/2023 Start: 06-04-2023 End: 09-03-2023 Hemoglobin A1c in Blood HGB A1C Lab Routine Prediabetes Expected: 06/04/2023, Expires: 09/03/2023 [facility] Work Phone: Comment on above: Expected: 06/04/2023 , Expires: 09/03/2023 Start: 06-04-2023 End: 09-03-2023 Lipid 1996 panel - Serum or Plasma LIPID PANEL BASIC Lab Routine Hyperlipidemia with target LDL less than 130 Expected: 06/04/2023, Expires: 09/03/2023 [facility] Work Phone: Comment on above: Expected: 06/04/2023 , Expires: 09/03/2023 Start: 06-04-2023 End: 09-03-2023 Prostate specific Ag [Mass/volume] in Serum or Plasma PSA/PROSTSPECAG DIAG Lab Routine Elevated prostate specific antigen (PSA) Expected: 06/04/2023, Expires: 09/03/2023 [facility] Work Phone: Comment on above: Expected: 06/04/2023 , Expires: 09/03/2023 Start: 03-14-2023 Covid-19 Vaccine (2022- season) Covid-19 Vaccine (2022- season) [facility] Start: 03-14-2023 Influenza vaccination Influenza Vacc ine (#1) [facility] Start: 03-14-2022 Influenza vaccination INFLUENZA (#1) [facility] Start: 07-14-2021 ADVANCE DIRECTIVE DISCUSSION ADVANCE DIRECTIVE DISCUSSION [facility] Start: 12-14-2020 COVID-19 VACCINE (3 - Booster for Moderna series) COVID-19 VACCINE (3 - Booster for Moderna series) [facility] Start: 2014 RSV Vaccine (1 - 1-d ose 75+ series) RSV Vaccine (1 - 1-dose 75+ series) [facility] Start: 2004 Pneumococcal Vaccine : 65+ (1 of 1 - PCV) Pneumococcal Vaccine: 65+ (1 of 1 - PCV) [facility] Start: 2004 PNEUMOCOCCAL: 65+ (1 - PCV) PNEUMOCOCCAL: 65+ (1 - PCV) [facility] Start: 1999 RSV Vaccine (1 - 1-d ose 60+ series) RSV Vaccine (1 - 1-dose 60+ series) [facility] Start: 1989 Pneumococcal Vaccine : 50+ (1 of 1 - PCV) Pneumococcal Vaccine: 50+ (1 of 1 - PCV) [facility] Start: 1989 SHINGRIX VACCINE (1 of 2) SHINGRIX VACCINE (1 of 2) [facility] Start: 1958 Urine microalbumin profile [facility] Start: 1957 Depression Screening Depression Scre ening [facility] Immunizations Immunization Date Immunization Notes Care Provider Fa cility 09-21-2020 COVID-19 original vaccine, full dose, monovalent (MODERNA) Karla Najera MD Work Phone: [facility] Work Phone: 03-24-2019 influenza virus vaccine, unspecified formulation Karla Najera MD Work Phone: [facility] Payers Date Payer Category Payer Medicare (Managed Care) [employer] HMO [id number] 2024 Unknown [id number] 2023 Medicare [id number] 2012 Private Health Insurance [facility] AARP SUPPLEMENT [id number] 2012-Present [phone] [address] [place] [address] Indemnity [id number] 2004 Medicare [id number] Social History Date Type Detail Facility Start: 04-24-2022 Tobacco smoking stat us NHIS Never smoked tobacco [facility] Work Phone: Start: 04-24-2022 Tobacco use and exposure Smoke less tobacco non-user [facility] Work Phone: Start: 04-24-2022 End: 08-30-2024 Alcohol intake Current non-drinker of alcohol (finding) [facility] Start: 06-28-2020 History SDOH Alcohol Frequency 1 [facility] Start: 06-28-2020 History SDOH Alcohol Std Drinks 98 [facility] Start: 06-28-2020 History SDOH Social Connections Phone 5 [facility] Start: 06-28-2020 History SDOH Social Connections Get Together 3 [facility] Start: 06-28-2020 History SDOH Social Connections Membership 2 [facility] Start: 06-28-2020 History SDOH Social Connections Living 4 [facility] Start: 06-27-2020 Education 9 [facility] Start: 1940 Sex Assigned At Not on file [facility] Start: 04-14-2022 End: 04-24-2022 Exposure to SARS-CoV-2 (event) Not sure [facility] Work Phone: Start: 06-27-2020 End: 01-08-2023 History of Social function [facility] Start: 06-27-2020 End: 01-08-2023 Social connection and isolation panel [facility] Do you belong to any clubs or organizations such as moravian groups, unions, fraternal or athletic groups, or school groups? No [facility] Are you now , , , , never or living with a partner? [facility] How often to you hav e a drink containing alcohol? Never [facility] How many standard dr inks containing alcohol do you have on a typical day? Patient refused [facility] Do you feel stress - tense, restless, nervous, or anxious, or unable to sleep at night because your mind is troubled all the time - these days [OSQ] Only a little [facility] (I/We) worried whejuan m er (my/our) food would run out before (I/we) got money to buy more. Never true [facility] Medical Equipment Procedure Code Equipment Code Equipment Origin al Text Equipment Identifier Dates Mesh Srg Pariete x 6cm Ryan Rnd - [id number] Start: 05-28-2011 Comment on above: Description: [employer] Functional Status Date Assessment Result Facility 02-18-2015 Are you deaf, or do you have serious difficulty hearing No 02/18/2015 8:40 AM EDT Shannon Shah LPN No [facility] 02-18-2015 Are you blind, or do you have serious difficulty seeing, even when wearing glasses No 02/18/2015 8:40 AM EDT Shannon Shah LPN No [facility] 02-18-2015 Do you have serious difficulty walking or climbing stairs No 02/18/2015 8:40 AM EDT Shannon Shah LPN No [facility] 02-18-2015 Do you have difficul ty dressing or bathing No 02/18/2015 8:40 AM EDT Shannon Shah LPN No [facility] 02-18-2015 Because of a physica l, mental, or emotional condition, do you have difficulty doing errands alone such as visiting a physician's office or shopping No 02/18/2015 8:40 AM EDT Shannon Shah LPN No [facility] Mental Status Date Assessment Result Facility 02-18-2015 Because of a physica l, mental, or emotional condition, do you have serious difficulty concentrating, remembering, or making decisions No 02/18/2015 8:40 AM EDT Shannon Shah LPN No [facility] Clinical Notes 02-18-2015 to 08-30-2024 Rosey Quiles APRN.ONLINE FACILITATOR - 08/30/2024 2:36 PM ESTTelephone Encounter - Ibrahima Macias LPN - 08/03/2024 12:18 PM ESTTelephone Encounter - Ibrahima Macias LPN - 08/03/2024 12:18 PM EST Note Date & Type Note Facility 08-30-2024 Note HNO ID: [id number] Author: ROSEY QUILES APRN.SHANKAR Service: ? Author Type: Nurse Practitioner Type: Progress Notes Filed: 08/30/2024 15:23 Note Text: CC: Patient presents with: Recheck: BP follow up HPI Derrick Omalley is a 83 year old male who presents today for routine follow up. HLD: Mr. Omalley denies headache, chest pain, palpitations, dyspnea, and peripheral edema. Currently not on any antihypertensive or cholesterol lowering medications. Does not tolerate statin medications. He does check BP's away from this office with average BP's in the 120s/70s range. Derrick works out regularly 7 times per week with walking on treadmill and does light weights. He watches his diet for sodium, low fat and low cholesterol most of the time. Last 3 Encounter BP Readings: Date: BP: 08/30/2024 138/72 01/13/2024 136/67[caryn bp average[ 07/09/2023 148/80 Enlarged prostate with elevated PSA: Asymptomatic and PSA level stable REVIEW OF SYSTEMS See HPI PAST MEDICAL HISTORY Diagnosis Date Arthritis see's Dr. 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 traMADol (ULTRAM) 50 mg tablet Take 50 mg by mouth every 6 hours as needed. latanoprost (XALATAN) 0.005 % ophthalmic solution Use 1 Drop in both eyes daily at bedtime. TO AFFECTED EYE(S) meclizine 25 mg tab Take 1 tablet by mouth every 6 hours as needed. FOR DIZZINESS aluminum-magnesium hydroxide-simethicone 200-200-20 mg/5 mL suspension Take by mouth every 6 hours as needed. MULTIVITAMIN ORAL TAB Take one(1) tablet daily. FAMILY HISTORY Problem Relation Age of Onset Breast Cancer Other Diabetes Mother Arthritis Father Prostate Cancer Father Social History Tobacco Use Smoking status: Never Smokeless tobacco: Never Substance Use Topics Alcohol use: No Drug use: No PHYSICAL EXAM BP 138/72 Pulse 108 Resp 16 Wt 79.4 kg (175 lb) BMI 27.41 kg/m? General Appearance: well appearing, in no acute distress, alert Eyes: conjunctiva pink and moist, no icterus, sclera white, non-injected Lungs: Lungs clear to auscultation. No wheezing, rhonchi, rales. Heart: RRR without murmur, gallop, or rubs. No ectopy Health maintenance reviewed with patient: Depression Screening Never done Advance Directive Discussion due on 07/14/2024 Influenza Vaccine(1) due on 01/10/2025 DTaP,Tdap,Td Vaccine(1 - Tdap) due on 08/30/2025 RSV Vaccine(1 - 1-dose 75+ series) due on 08/30/2025 Shingrix Vaccine(1 of 2) due on 08/30/2025 Covid-19 Vaccine(3 - 2023- season) due on 08/30/2025 Pneumococcal Vaccine: 50+(1 of 1 - PCV) due on 08/30/2025 Diabetes Screening due on 07/05/2027 DATA REVIEWED: Most recent labs ASSESSMENT/PLAN: 1. Hyperlipidemia with target LDL less than 130 - ICD9: 272.4, ICD10: E78.5 (primary diagnosis) - Worsening control - Counseled on healthy diet and regular exercise - Discussed need for and benefit of weight loss. BMI 27.41 kg/(m2) - does not tolerate cholesterol lowering medications so discussed diet in great detail Follow up in 6 months 2. Enlarged prostate - ICD9: 600.00, ICD10: N40.0 stable Prescription instructions reviewed with patient as applicable. Potential red flag symptoms discussed with the patient. Reviewed appropriate action plan to take if red flag symptoms occur. Patient agreeable to treatment plan. Rosey Quiles APRN.ONLINE FACILITATOR [facility] 08-30-2024 History of Presen t illness Narrative CC: Patient presents with: Recheck: BP follow up HPI Derrick Omalley is a 83 year old male who presents today for routine follow up. HLD: Mr. Omalley denies headache, chest pain, palpitations, dyspnea, and peripheral edema. Currently not on any antihypertensive or cholesterol lowering medications. Does not tolerate statin medications. He does check BP's away from this office with average BP's in the 120s/70s range. Derrick works out regularly 7 times per week with walking on treadmill and does light weights. He watches his diet for sodium, low fat and low cholesterol most of the time. Last 3 Encounter BP Readings: Date: BP: 08/30/2024 138/72 01/13/2024 136/67[caryn bp average[ 07/09/2023 148/80 Enlarged prostate with elevated PSA: Asymptomatic and PSA level stable REVIEW OF SYSTEMS See HPI PAST MEDICAL HISTORY Diagnosis Date Arthritis see's Dr. 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 traMADol (ULTRAM) 50 mg tablet Take 50 mg by mouth every 6 hours as needed. latanoprost (XALATAN) 0.005 % ophthalmic solution Use 1 Drop in both eyes daily at bedtime. TO AFFECTED EYE(S) meclizine 25 mg tab Take 1 tablet by mouth every 6 hours as needed. FOR DIZZINESS aluminum-magnesium hydroxide-simethicone 200-200-20 mg/5 mL suspension Take by mouth every 6 hours as needed. MULTIVITAMIN ORAL TAB Take one(1) tablet daily. FAMILY HISTORY Problem Relation Age of Onset Breast Cancer Other Diabetes Mother Arthritis Father Prostate Cancer Father Social History Tobacco Use Smoking status: Never Smokeless tobacco: Never Substance Use Topics Alcohol use: No Drug use: No PHYSICAL EXAM BP 138/72 Pulse 108 Resp 16 Wt 79.4 kg (175 lb) BMI 27.41 kg/m General Appearance: well appearing, in no acute distress, alert Eyes: conjunctiva pink and moist, no icterus, sclera white, non-injected Lungs: Lungs clear to auscultation. No wheezing, rhonchi, rales. Heart: RRR without murmur, gallop, or rubs. No ectopy Health maintenance reviewed with patient: Depression Screening Never done Advance Directive Discussion due on 07/14/2024 Influenza Vaccine(1) due on 01/10/2025 DTaP,Tdap,Td Vaccine(1 - Tdap) due on 08/30/2025 RSV Vaccine(1 - 1-dose 75+ series) due on 08/30/2025 Shingrix Vaccine(1 of 2) due on 08/30/2025 Covid-19 Vaccine(3 - season) due on 08/30/2025 Pneumococcal Vaccine: 50+(1 of 1 - PCV) due on 08/30/2025 Diabetes Screening due on 07/05/2027 DATA REVIEWED: Most recent labs ASSESSMENT/PLAN: 1. Hyperlipidemia with target LDL less than 130 - ICD9: 272.4, ICD10: E78.5 (primary diagnosis) - Worsening control - Counseled on healthy diet and regular exercise - Discussed need for and benefit of weight loss. BMI 27.41 kg/(m^2) - does not tolerate cholesterol lowering medications so discussed diet in great detail Follow up in 6 months 2. Enlarged prostate - ICD9: 600.00, ICD10: N40.0 stable Prescription instructions reviewed with patient as applicable. Potential red flag symptoms discussed with the patient. Reviewed appropriate action plan to take if red flag symptoms occur. Patient agreeable to treatment plan. Rosey Quiles APRN.CNP documented in this encounter [facility] 08-03-2024 Telephone encounter Note Lennie NOTIFIED OF SAME. [facility] 08-03-2024 Miscellaneous Notes Lennie NOTIFIED OF SAME. Please let patient know that his PSA was slightly higher than last year-can discuss further at follow up. His sodium was slightly low-increase salty foods, can recheck in a few weeks. Cholesterol was up slightly. Continue low fat, low cholesterol diet. I see where he is not on medication and had preferred not to take. Again, can discuss further at his follow up visit. Otherwise labs looked stable. Mikki Harrell PA-C 08/03/2024 documented in this encounter [facility] 08-03-2024 Telephone encounter Note Please let patient know that his PSA was slightly higher than last year-can discuss further at follow up. His sodium was slightly low-increase salty foods, can recheck in a few weeks. Cholesterol was up slightly. Continue low fat, low cholesterol diet. I see where he is not on medication and had preferred not to take. Again, can discuss further at his follow up visit. Otherwise labs looked stable. Mikki Harrell PA-C 08/03/2024 [facility] Work Phone: 07-22-2024 Telephone encounter Note My apologies to the patients for having to leave early due to illness. If they have any concerns they should be seen earlier and a different provider is ok. As long as they have no concerns. August will be ok. Thank you Rosey Quiles APRN.CNP [facility] 07-22-2024 Miscellaneous Notes My apologies to the patients for having to leave early due to illness. If they have any concerns they should be seen earlier and a different provider is ok. As long as they have no concerns. August will be ok. Thank you Rosey Quiles APRN.CNP Patients daughter Lennie was called for both hers and the patients appts to be rescheduled from the 07/21/24, which she was able to reschedule to 08/30/24 because they needed a evening appt, and his daughter would have to bring him around 5:00, the 17th ended up working because she has that day off, but just double checking its ok if derrick can wait for that date, or if they can both be scheduled back to back with a different provider outside of the established care team for there follow ups. : Issac Malloy documented in this encounter [facility] 07-21-2024 Telephone encounter Note Patients daughter Lennie was called for both hers and the patients appts to be rescheduled from the 07/21/24, which she was able to reschedule to 08/30/24 because they needed a evening appt, and his daughter would have to bring him around 5:00, the 17th ended up working because she has that day off, but just double checking its ok if derrick can wait for that date, or if they can both be scheduled back to back with a different provider outside of the established care team for there follow ups. : Issac Malloy [facility] 01-13-2024 Note HNO ID: [id number] Author: MIKKI HARRELL PA-C Service: ? Author Type: Physician Annual Campaign Manager Type: Progress Notes Filed: 01/13/2024 14:12 Note Text: 01/13/2024 Patient presents with: 6 Month Exam: blood pressure check SUBJECTIVE: This is a 83 year old that is here today for follow up BP. Patient is not on medication at this time. Reports home BP cuff runs in the 120's/80s. Brought BP cuff today. Denies chest pain, SOB, leg swelling, vision changes, headaches. Derrick Omalley is a 83 year old male who presents in follow up of DM, HTN and Hyperlipidemia. DIABETES MELLITUS: Mr. Omalley was last seen 6 months ago. Since our last visit he denies excessive thirst or increased frequency of urination, chest pain or dyspnea , numbness, tingling or pain in extremities, new or unusual visual symptoms, low sugar/hypoglycemic reactions, weight loss/gain, lightheadedness/dizziness, bowel changes/loose stools, and. Follows a diabetic diet some of the time. Controlled with diet. He reports checking his glucose on a infrequent to not at all basis schedule Patient's last HgA1C was Hemoglobin A1C (%) Date Value 06/21/2023 5.6 02/03/2021 5.7 12/17/2019 5.7 HTN: Mr. Omalley indicates that he is feeling well and denies any symptoms referable to elevated blood pressure. Specifically denies headache, chest pain, palpitations, dyspnea, and peripheral edema. He does check BP's away from this office with average BP's in the 120/80s range. Brings home cuff today. Our office reading is higher compared to home cuff. Plans to get a new cuff. Derrick likes to exercise by walking on treadmill. He watches his diet for sodium, low fat and low cholesterol most of the time. Last 3 Encounter BP Readings: Date: BP: 01/13/2024 138/68 07/09/2023 148/80 01/08/2023 130/64 Hyperlipidemia. Mr. Omalley reports doing well . Controls with diet. Did not tolerate statins previously with myalgias. His most recent lipid panels are: Cholesterol, Total (mg/dL) Date Value 06/21/2023 199 02/16/2022 217 02/03/2021 226 12/17/2019 206 HDL Cholesterol (mg/dL) Date Value 06/21/2023 45 02/16/2022 44 02/03/2021 34 12/17/2019 47 LDL Cholesterol (mg/dL) Date Value 06/21/2023 135 02/16/2022 147 02/03/2021 158 12/17/2019 144 Triglyceride (mg/dL) Date Value 06/21/2023 94 02/16/2022 131 02/03/2021 169 12/17/2019 77 Past Medical, Surgical, Family and Social Histories reviewed and updated today in the History tab of [employer]. Current Medications and allergies reviewed. PAST MEDICAL HISTORY Diagnosis Date Arthritis see's Dr. Basali for injections Elevated prostate specific antigen (PSA) Esophageal reflux Other and unspecified hyperlipidemia Type II or unspecified type diabetes mellitus without mention of complication, not stated as uncontrolled Vertigo Current Outpatient Medications Medication Sig esomeprazole (NEXIUM) 40 mg capsule Take 1 capsule by mouth once daily as needed. traMADol (ULTRAM) 50 mg tablet Take 50 mg by mouth every 6 hours as needed. latanoprost (XALATAN) 0.005 % ophthalmic solution Use 1 Drop in both eyes daily at bedtime. TO AFFECTED EYE(S) meclizine 25 mg tab Take 1 tablet by mouth every 6 hours as needed. FOR DIZZINESS aluminum-magnesium hydroxide-simethicone 200-200-20 mg/5 mL suspension Take by mouth every 6 hours as needed. MULTIVITAMIN ORAL TAB Take one(1) tablet daily. No current facility-administered medications for this visit. PHYSICAL EXAM: BP 138/68 (BP Site: Right Arm, BP Position: Sitting, BP Cuff Size: Large Adult) Pulse 104 Resp 12 Ht 170.2 cm (5' 7) Wt 77.1 kg (170 lb) SpO2 97% BMI 26.63 kg/m? BMI 26.63 kg/(m2) General appearance: Alert, cooperative, pleasant, in no acute distress Head: Normocephalic, atraumatic Eyes: conjunctiva/corneas normal, PERRL Oropharynx: moist without lesions, teeth in good repair Neck: supple and no JVD Heart: regular rate and rhythm, without murmur Lungs: clear to auscultation, without rales or wheeze, good air exchange Assessment/Plan 1. Diabetes Mellitus - Control undetermined, due for labs in 6 months, ordered 2. Hypertension - Controlled , will monitor with new BP cuff, will stop in office to verify. Advise to contact office if >140/90. - Recommend home blood pressure monitoring, to bring results to next visit - Encouraged sodium restriction, DASH or Mediterranean diet - Recommend regular aerobic exercise 3. Hyperlipidemia - uncontrolled, advise continued lifestyle modification with diet-repeat in 6 months. Did not tolerate statins previously. Fish oil and Red Yeast Rice extract. - Counseled on healthy diet and regular exercise Mikki Harrell PA-C [facility] 01-13-2024 History of Presen t illness Narrative 01/13/2024 Patient presents with: 6 Month Exam: blood pressure check SUBJECTIVE: This is a 83 year old that is here today for follow up BP. Patient is not on medication at this time. Reports home BP cuff runs in the 120's/80s. Brought BP cuff today. Denies chest pain, SOB, leg swelling, vision changes, headaches. Derrick Omalley is a 83 year old male who presents in follow up of DM, HTN and Hyperlipidemia. DIABETES MELLITUS: Mr. Omalley was last seen 6 months ago. Since our last visit he denies excessive thirst or increased frequency of urination, chest pain or dyspnea , numbness, tingling or pain in extremities, new or unusual visual symptoms, low sugar/hypoglycemic reactions, weight loss/gain, lightheadedness/dizziness, bowel changes/loose stools, and. Follows a diabetic diet some of the time. Controlled with diet. He reports checking his glucose on a infrequent to not at all basis schedule Patient's last HgA1C was Hemoglobin A1C (%) Date Value 06/21/2023 5.6 02/03/2021 5.7 12/17/2019 5.7 HTN: Mr. Omalley indicates that he is feeling well and denies any symptoms referable to elevated blood pressure. Specifically denies headache, chest pain, palpitations, dyspnea, and peripheral edema. He does check BP's away from this office with average BP's in the 120/80s range. Brings home cuff today. Our office reading is higher compared to home cuff. Plans to get a new cuff. Derrick likes to exercise by walking on treadmill. He watches his diet for sodium, low fat and low cholesterol most of the time. Last 3 Encounter BP Readings: Date: BP: 01/13/2024 138/68 07/09/2023 148/80 01/08/2023 130/64 Hyperlipidemia. Mr. Omalley reports doing well . Controls with diet. Did not tolerate statins previously with myalgias. His most recent lipid panels are: Cholesterol, Total (mg/dL) Date Value 06/21/2023 199 02/16/2022 217 02/03/2021 226 12/17/2019 206 HDL Cholesterol (mg/dL) Date Value 06/21/2023 45 02/16/2022 44 02/03/2021 34 12/17/2019 47 LDL Cholesterol (mg/dL) Date Value 06/21/2023 135 02/16/2022 147 02/03/2021 158 12/17/2019 144 Triglyceride (mg/dL) Date Value 06/21/2023 94 02/16/2022 131 02/03/2021 169 12/17/2019 77 Past Medical, Surgical, Family and Social Histories reviewed and updated today in the History tab of [employer]. Current Medications and allergies reviewed. PAST MEDICAL HISTORY Diagnosis Date Arthritis see's Dr. Quintanilla for injections Elevated prostate specific antigen (PSA) Esophageal reflux Other and unspecified hyperlipidemia Type II or unspecified type diabetes mellitus without mention of complication, not stated as uncontrolled Vertigo Current Outpatient Medications Medication Sig esomeprazole (NEXIUM) 40 mg capsule Take 1 capsule by mouth once daily as needed. traMADol (ULTRAM) 50 mg tablet Take 50 mg by mouth every 6 hours as needed. latanoprost (XALATAN) 0.005 % ophthalmic solution Use 1 Drop in both eyes daily at bedtime. TO AFFECTED EYE(S) meclizine 25 mg tab Take 1 tablet by mouth every 6 hours as needed. FOR DIZZINESS aluminum-magnesium hydroxide-simethicone 200-200-20 mg/5 mL suspension Take by mouth every 6 hours as needed. MULTIVITAMIN ORAL TAB Take one(1) tablet daily. No current facility-administered medications for this visit. PHYSICAL EXAM: BP 138/68 (BP Site: Right Arm, BP Position: Sitting, BP Cuff Size: Large Adult) Pulse 104 Resp 12 Ht 170.2 cm (5' 7) Wt 77.1 kg (170 lb) SpO2 97% BMI 26.63 kg/m BMI 26.63 kg/(m^2) General appearance: Alert, cooperative, pleasant, in no acute distress Head: Normocephalic, atraumatic Eyes: conjunctiva/corneas normal, PERRL Oropharynx: moist without lesions, teeth in good repair Neck: supple and no JVD Heart: regular rate and rhythm, without murmur Lungs: clear to auscultation, without rales or wheeze, good air exchange Assessment/Plan 1. Diabetes Mellitus - Control undetermined, due for labs in 6 months, ordered 2. Hypertension - Controlled , will monitor with new BP cuff, will stop in office to verify. Advise to contact office if >140/90. - Recommend home blood pressure monitoring, to bring results to next visit - Encouraged sodium restriction, DASH or Mediterranean diet - Recommend regular aerobic exercise 3. Hyperlipidemia - uncontrolled, advise continued lifestyle modification with diet-repeat in 6 months. Did not tolerate statins previously. Fish oil and Red Yeast Rice extract. - Counseled on healthy diet and regular exercise Mikki Harrell PA-C documented in this encounter [facility] 01-13-2024 Nurse Note Home BP monitor reading in office: left arm: 166/77 right arm: 153/80 [facility] 01-13-2024 Nurse Note Home BP monitor reading in office: left arm: 166/77 right arm: 153/80 documented in this encounter [facility] 06-04-2023 Miscellaneous Notes Spoke with patient's daughter. Given message from provider's office. She verbalizes understanding. Delores Logan RN Fasting blood work orders placed. Rosey Quiles APRN.CNP Patient's daughter calling to say labs were ordered at [facility] in December and have . She is requesting new lab orders. Delores Logan RN documented in this encounter [facility] 04-24-2022 History of Presen t illness Narrative Medicare Yearly Visit Medical B eligibilty date age 64 Date of last exam none in the past year. PAST MEDICAL HISTORY Diagnosis Date Arthritis see's Dr. 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 EGD TRANSORAL BIOPSY SINGLE/MULTIPLE 06/01/10 High GE junction/?esophagitis NONE RPR 1ST INGUN HRNA AGE 5 YRS/> REDUCIBLE 05/28/11 RIght ALLERGIES: Combigan [Brimonidine-Timolol], Levaquin [Levofloxacin], Mobic [Meloxicam], Sulfa (Sulfonamide Antibiotics), and Tylenol [Acetaminophen] Medications reviewed: Yes FAMILY HISTORY Problem Relation Age of Onset Breast Cancer Other Diabetes Mother Arthritis Father Prostate Cancer Father SOCIAL HISTORY: Social History Tobacco Use Smoking status: Never Smokeless tobacco: Never Substance Use Topics Alcohol use: No Drug use: No Derrick denies regular aerobic exercise. He watches his diet for sodium, low fat and low cholesterol most of the time. List of current specialists seen: End of Live Planning discussed including patients advanced directive wishes: Yes I am willing to follow Derrick's advanced directives. PHQ-2 / Depression screen He in the past two weeks denies having felt down, depressed, hopeless, or with little interest or pleasure in doing things. Functional Ability/Safety Screen 1. Was the patient's timed Up and Go test unsteady or longer than 30 seconds? No 2. Does the patient need help with the phone, transportation, shopping,preparing meals, housework, laundry, medications or managing money? No 3. Does your home have rugs in the hallway, lack of grab bars in the bathroom, lack of handrails on the stairs or have poor lighting? No Hearing Evaluation: within normal limits and normal PHYSICAL EXAM BP 132/60 (BP Site: Right Arm, BP Position: Sitting, BP Cuff Size: Large Adult) Pulse 117 Temp 37.2 C (98.9 F) Resp 12 Ht 170.2 cm (5' 7) Wt 74.8 kg (165 lb) SpO2 95% BMI 25.84 kg/m Alert and oriented X 3: YES Body mass index is 25.84 kg/m . ASSESSMENT/PLAN: 81 year old male The following prevention plan was discussed during the office visit and provided to the patient: - Lipid panel - Glaucoma screening Karla Najera MD Reason for Visit Patient presents with: Medicare Wellness Exam Derrick Omalley is a 81 year old male who presents here today for Above Complaints.. Health Maintenance DTAP,TDAP,TD(1 - Tdap) SHINGRIX VACCINE(1 of 2) PNEUMOCOCCAL: 65+(1 - PCV) COVID-19 VACCINE(3 - Booster for Moderna series) ADVANCE DIRECTIVE DISCUSSION DEPRESSION ASSESSMENT INFLUENZA(1) HPI Patient does not take most of his medications except the tramadol on a regular basis. Everything is as needed he is on tamsulosin, Nexium and tramadol. Reviewed his labs. Cholesterol is a little bit on the higher side. He has lost 7 pounds of weight and whenever he loses weight his cholesterols are better than before and this time it is better usually this is his pattern in the summer. In the event he gains weight his HDL goes down and his LDL goes up which is happened before. He has a log of his blood pressures and today his blood pressure was fair here and at home to it was normal. He will work on his advanced directives. He is not depressed. Patient notes that he feels the same as he fell 30 years ago and he is very healthy. There is some mild cognitive decline, in the patient No problem-specific Assessment & Plan notes found for this encounter. PAST MEDICAL HISTORY Diagnosis Date Arthritis see's Dr. 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 Pertinent Lab/Diagnostic Studies are reviewed and discussed today Current Outpatient Medications: tamsulosin (FLOMAX) 0.4 mg esomeprazole (NEXIUM) 40 mg capsule traMADol (ULTRAM) 50 mg tablet latanoprost (XALATAN) 0.005 % ophthalmic solution meclizine 25 mg tab aluminum-magnesium hydroxide-simethicone (ANTACID ANTI-GAS) 200-200-20 mg/5 mL suspension MULTIVITAMIN ORAL TAB Review of Systems CONSTITUTIONAL: [...] or numbness of concern. Physical Exam BP 132/60 (BP Site: Right Arm, BP Position: Sitting, BP Cuff Size: Large Adult) Pulse 117 Temp 37.2 C (98.9 F) Resp 12 Ht 170.2 cm (5' 7) Wt 74.8 kg (165 lb) SpO2 95% BMI 25.84 kg/m General appearance: Well appearing, alert, in no [...] ICD9: V70.0, ICD10: Z00.00 (primary diagnosis) - Counseled on healthy diet and regular exercise 2. Hyperlipidemia with target LDL less than 130 - ICD9: 272.4, ICD10: E78.5 - good control - Continue current medication. Karla Najera MD documented in this encounter [facility] 04-24-2022 Nurse Note Sees [facility] Eye exam with corrective lens - right eye: 20/40 unable to see with left eye documented in this encounter [facility] 02-18-2015 History of Past i llness Narrative Problem Noted Date Resolved Date DIABETES MELLITUS TYPE II-UNCOMPL 02/18/2015 documented as of this encounter (statuses as of 04/25/2022) [facility] History of Past illness Narrative* Problem Noted Date Diagnosed Date Resolved Date DIABETES MELLITUS TYPE II-UNCOMPL 02/18/2015 documented as of this encounter (statuses as of 06/04/2023) [facility] Medicare annual wellness visit, subsequent- Primary Routine general medical examination at a health care facility Hyperlipidemia with target LDL less than 130 Other and unspecified hyperlipidemia [facility] Diagnosis Hyperlipidemia with target LDL less than 130- Primary Other and unspecified hyperlipidemia Prediabetes Other abnormal glucose Elevated prostate specific antigen (PSA) [facility] Diagnosis Hyperlipidemia with target LDL less than 130- Primary Other and unspecified hyperlipidemia Elevated PSA Elevated prostate specific antigen (PSA) [facility] Diagnosis Encounter to establish care- Primary Other reasons for seeking consultation HYPERLIPIDEMIA NEC/NOS Other and unspecified hyperlipidemia Annual physical exam Routine general medical examination at a health care facility Lung nodule Solitary pulmonary nodule Esophageal reflux Dizziness and giddiness DDD (degenerative disc disease) Degeneration of intervertebral disc, site unspecified Other and unspecified hyperlipidemia- Primary Hyperlipidemia LDL goal < 130- Primary Other and unspecified hyperlipidemia DDD (degenerative disc disease) Degeneration of intervertebral disc, site unspecified PULMONARY NODULES Swelling, mass, or lump in chest Routine health maintenance- Primary Routine general medical examination at a health care facility Glaucoma Unspecified glaucoma Degeneration of intervertebral disc of thoracolumbar region Dizziness and giddiness Gastroesophageal reflux disease without esophagitis Esophageal reflux INSOMNIA NOS Insomnia, unspecified Hyperlipidemia with target LDL less than 130- Primary Other and unspecified hyperlipidemia Enlarged prostate Hypertrophy of prostate without urinary obstruction and other lower urinary tract symptoms (LUTS) documented in this encounter [facility] Summary Purpose Family History No Family History Records Found Advance Directives No Advanced Directives Records Found Additional Source Comments Source Comments (unrecognize d section and content) In the event this informatio n is protected by the Federal Confidentiality of Alcohol and Drug Abuse Patient Records regulations: The Federal rules restrict any use of the information to criminally investigate or prosecute any alcohol or drug abuse patient.[facility] event this information is protected by the Federal Confidentiality of Alcohol and Drug Abuse Patient Records regulations: The Federal rules restrict any use of the information to criminally investigate or prosecute any alcohol or drug abuse patient.[facility] the event this information is protected by the Federal Confidentiality of Alcohol and Drug Abuse Patient Records regulations: The Federal rules restrict any use of the information to criminally investigate or prosecute any alcohol or drug abuse patient.[facility] the event this information is protected by the Federal Confidentiality of Alcohol and Drug Abuse Patient Records regulations: The Federal rules restrict any use of the information to criminally investigate or prosecute any alcohol or drug abuse patient.[facility] the event this information is protected by the Federal Confidentiality of Alcohol and Drug Abuse Patient Records regulations: The Federal rules restrict any use of the information to criminally investigate or prosecute any alcohol or drug abuse patient.[facility] the event this information is protected by the Federal Confidentiality of Alcohol and Drug Abuse Patient Records regulations: The Federal rules restrict any use of the information to criminally investigate or prosecute any alcohol or drug abuse patient.[facility] Reason for Visit (unrecogniz ed section and content) Reason Comments Medicare Wellness Exam Reason Comments Orders Reason Comments 6 Month Exam blood pressure check Reason Comments Appointment Reschedules Reason Comments Recheck BP follow up Care Teams (unrecognized sec tion and content) Carpet Winder Relationship Specialty Start Date End Date Karla Najera MD [address] [place], [place] [id number] PCP - General Internal Medicine 10/28/13 Carpet Winder Relationship Specialty Start Date End Date Karla Najera MD [address] [place], [place] [id number] PCP - General Internal Medicine 10/28/13 Carpet Winder Relationship Specialty Start Date End Date Karla Najera MD [address] [place] [address] PCP - General Internal Medicine 10/28/13 Carpet Winder Relationship Specialty Start Date End Date Karla Najera MD [address] [facility] [place] [address] PCP - General Internal Medicine 10/28/13 Starr Lester PA-C [address] [place] [address] Certified Personal Chef Family Medicine 06/20/24 Rosey Quiles APRN.ONLINE FACILITATOR [address] [place] [address] Certified Personal Chef Internal Medicine 06/20/24 Mikki Harrell PA-C [address] [place] [address] Certified Personal Chef Family Medicine 06/20/24 Carpet Winder Relationship Specialty Start Date End Date Karla Najera MD [address] [facility] [place] [address] PCP - General Internal Medicine 10/28/13 Starr Lester PA-C [address] [place] [address] Certified Personal Chef Family Medicine 06/20/24 Rosey Quiles, DIE TECHNICIAN.ONLINE FACILITATOR [address] [place] [address] Certified Personal Chef Internal Medicine 06/20/24 Mikki Harrell PA-C [address] [facility] [place] [address] Certified Personal Chef Family Medicine 06/20/24 Carpet Winder Relationship Specialty Start Date End Date Karla Najera MD [address] [place] [address] PCP - General Internal Medicine 10/28/13 Starr Lester PA-C [address] [place] [address] Certified Personal Chef Family Medicine 06/20/24 Rosey Quiles APRN.CNP [address] [place] [address] Certified Personal Chef Internal Medicine 06/20/24 Mikki Harrell PA-C [address] [place] [address] [facility]24 (unrecognized sect ion and content) No Status Records Found INFORMATION SOURCE (unrecogn ized section and content) DATE CREATED AUTHOR 08/31/2024 [facility] FOR RECORDS PERTAINING TO PATIENTS WHO ARE OR HAVE BEEN ENROLLED IN A CHEMICAL DEPENDENCY/SUBSTANCEABUSE PROGRAM, SOME INFORMATION MAY BE OMITTED. This clinical summary was aggregated from multiple sources. Caution should be exercised in using it in the provision of clinical care. This summary normalizes information from multiple sources, and as a consequence, information in this document may materially change the coding, format and clinical context of patient data. In addition, data may be omitted in some cases. CLINICAL DECISIONS SHOULD BE BASED ON THE PRIMARY CLINICAL RECORDS. [employer] [facility] provides no warranty or guarantee of the accuracy or completeness of information in this document.
== END | disposition home or self-care (01) ==
PROVIDERS: PCP Internal Medicine; Referring Provider Anesthesiology Pain Medicine; Visit Provider Anesthesiology Pain Medicine
DX: M96.1 Postlaminectomy syndrome, not elsewhere classified (principal)
CPT/HCPCS: 72100